=== PATIENT | female | born 1940 | race Hispanic/Latino ===

== ENCOUNTER 2017-12-15 02:18 | Inpatient (IN) | payer MEDICARE ==
[2017-12-15 02:53] LABS: Bilirubin Negative (Negative); Blood, Urine Moderate (Negative); Clarity CLEAR (Clear); Glucose, Urine (Dipstick) >=1000 mg/dL (Negative); Leukocyte Negative (Negative); Nitrite Negative (Negative); Protein, Urine (Dipstick) Negative (Neg-Trace); Specific Gravity, Urine 1.025 (1.002-1.036); Urobilinogen 0.2 mg/dL (0.2-1.0); pH, Urine 6.5 (5.0-9.0)
[2017-12-15 02:55] LABS: Bacteria/HPF None Seen HPF (None Seen); Hyaline Casts/LPF 0-3 HYALINE CAST LPF (0-3 Hyaline); Pathc Cast-AUWi Flag 0.14 (0-2.49); RBC/HPF 0-3 HPF (0-3); Squamous Epithelial 0-3 HPF (0-3); WBC/HPF 0-3 HPF (0-3)
[2017-12-15 03:07] LABS: Hemoglobin 13.9 g/dL (12.0-16.0); Mean Corpuscular HGB CONC 32.1 g/dL (32.0-36.0); Mean Corpuscular Hemoglobin 33.5 pg (27.0-31.0); RBC Distribution Width 13.1 % (11.5-14.5); Red Blood Cell (RBC) Count 4.15 mill/uL (4.20-5.40); White Blood Cell (WBC) Count 14.8 thou/uL (4.8-10.8)
[2017-12-15 03:12] LABS: Base Excess-Venous 1.6 mmol/L (0 (+/- 2.5)); Bicarbonate (HCO3v) 27.6 mmol/L (1.0-85.0); CO2 Tension (PvCO2) 47.9 mmHg (41.0-51.0); Calcium, Ionized 1.21 mmol/L (1.12-1.32); Hemoglobin - Calc 13.1 g/dL (12.0-18.0); O2 Tension (PvO2) 35.5 mmHg (35.0-45.0); Potassium 3.5 mmol/L (3.4-4.7); T. Carbon Dioxide 29.1 mmol/L (1.0-85.0); pH (Venous) 7.369 (7.35-7.45); vO2 Saturation-calc 65.5 % (94-98)
[2017-12-15 03:20] LABS: CKMB 6.2 ng/mL (0-6.6)
[2017-12-15 03:21] LABS: ALT (SGPT) 60 U/L (8-55); AST (SGOT) 30 U/L (5-34); Albumin 2.9 g/dL (3.4-4.8); Alkaline Phosphatase 123 U/L (40-150); Anion Gap 18 mmol/L (10-20); BUN (Urea Nitrogen) 113 mg/dL (9.8-20.1); Bilirubin, Total 0.7 mg/dL (0.2-1.2); CK (CPK) 1526 U/L (29-168); Calc. Creatinine Clearance 0 mL/min (70-130); Calcium 9.8 mg/dL (7.8-10.44); Carbon Dioxide 25 mmol/L (23-31); Chloride 130 mmol/L (98-107); Estimated GFR-MDRD 23; Potassium 3.7 mmol/L (3.5-5.1); Protein, Total 5.9 g/dL (6.0-8.3); Sodium 169 mmol/L (136-145)
[2017-12-15 03:22] LABS: #Monocytes 0.9 thou/uL (0.11-0.59); #Neutrophils 12.9 thou/uL (1.40-6.50); %Eosinophils 0.2 % (0.0-10.0); %Lymphocytes 6.9 % (21.0-51.0); %Monocytes 5.9 % (0.0-10.0); Large Platelets SLIGHT; MDiff Complete? YES; Mean Platelet Volume 14.7 fL (7.4-10.4); PLT Morphology Comment Appears Decreased; Platelet Count 106 thou/uL (130-400)
[2017-12-15 03:26] LABS: Glucose 899 mg/dL (83-110); Troponin I 0.604 ng/mL (< 0.028)
[2017-12-15 04:43] LABS: Lactic Acid 3.6 mmol/L (0.5-2.2)
[2017-12-15 04:59] LABS: Troponin I 0.718 ng/mL (< 0.028)
[2017-12-15] MEDS ORDERED: SODIUM CHLORIDE IV SCH (05:45)
[2017-12-15] MEDS ORDERED: Insulin Regular 100 units/100 ml in NS IVPB SCH (05:45)
[2017-12-15] MEDS ORDERED: STERILE WATER IV SCH (05:45)
[2017-12-15] MEDS ORDERED: Potassium Chloride 40 MEQ in Sodium Chloride 0.45% 1,000 ML IV SCH (06:00)
[2017-12-15 06:13] LABS: Osmolality, Serum 432 mOsm/kg (280-295)
[2017-12-15] MEDS ORDERED: Sodium Chloride 0.65% Nasal 44 ML BOT EA NARE PRN (07:46)
[2017-12-15] MEDS ORDERED: Artificial Tears 18 DROP/0.9 ML EA EYE PRN (07:46)
[2017-12-15] MEDS ORDERED: Ondansetron HCl/PF 4 MG/2 ML Vial IVP PRN (07:46)
[2017-12-15] MEDS ORDERED: hydrALAZINE 20 MG/ML VIAL SLOW IVP PRN (07:46)
[2017-12-15] MEDS ORDERED: Bisacodyl 10 MG SUPP PR PRN (07:46)
[2017-12-15] MEDS ORDERED: Loratadine 10 MG TAB PER TUBE PRN ×3 (07:46→13:51)
[2017-12-15] MEDS ORDERED: Ondansetron ODT 4 MG TAB SL PRN (07:46)
[2017-12-15] MEDS ORDERED: Eucerin (Mineral Oil/Petrolatum,White) 30 gm Jar TOP PRN (07:46)
[2017-12-15] MEDS ORDERED: Milk Of Magnesia 30 ML UDCUP PER TUBE PRN (07:46)
[2017-12-15] MEDS ORDERED: Loperamide HCl 2 MG CAP PER TUBE PRN (07:46)
[2017-12-15] MEDS ORDERED: Diabetic Tussin 200 MG/10 ML UDCUP PER TUBE PRN (07:46)
[2017-12-15] MEDS ORDERED: Mag-Al 1200 mg/1200 mg/30 ML UDCUP PER TUBE PRN (07:46)
[2017-12-15] MEDS ORDERED: Acetaminophen 325 MG TAB PER TUBE PRN (07:46)
[2017-12-15] MEDS ORDERED: Senokot 8.6 MG TAB PER TUBE PRN (07:46)
[2017-12-15] MEDS: Sodium Chloride 0.45% 1,000 ML IV SCH ×3 (08:27→23:12)
[2017-12-15] MEDS: Cefepime 1 GM in Sodium Chloride 0.9% 100 ML IVPB SCH ×2 (08:28→21:52)
[2017-12-15] MEDS: Pantoprazole 40 MG VIAL IVP SCH (08:28)
[2017-12-15] MEDS: Heparin 5,000 UNITS/ML VIAL SC SCH ×2 (08:28→21:52)
[2017-12-15 08:49] LABS: Lactic Acid 4.9 mmol/L (0.5-2.2)
[2017-12-15 09:00] LABS: Troponin I 0.628 ng/mL (< 0.028)
[2017-12-15 09:05] LABS: CKMB 10.8 ng/mL (0-6.6); Troponin I 0.608 ng/mL (< 0.028)
--- NOTE | 2017-12-15 09:26 | CON ---
DATE OF CONSULTATION: 12/15/2017 CONSULTING PHYSICIAN: Hospitalist group - IMCU protocol. REASON FOR CONSULTATION: Severe hypernatremia and hyperglycemia. HISTORY OF PRESENT ILLNESS: The patient was brought in from the intermediate last night with tachycardia and hypotension. She was noted to have a sodium of 175 and blood glucose of nearly 1000. She has been started on appropriate fluid therapy for that and has also been placed on an insulin drip. She lives in a intermediate. She has cerebral palsy. PAST MEDICAL HISTORY: See above. Also remarkable for multiple urinary tract infections and swallowing dysfunction. PAST SURGICAL HISTORY: She has had a PEG tube placement, cataract surgery and ankle surgery. SOCIAL HISTORY: Nonsmoker, nondrinker. FAMILY MEDICAL HISTORY: Unremarkable. MEDICATIONS PRIOR TO ADMISSION: Opcon A eye drops, phosphorus electrolyte supplementation, Claritin, Sensipar, vitamin D3, MiraLax, aspirin and acetaminophen. REVIEW OF SYSTEMS: Cannot be obtained as the patient is nonverbal. PHYSICAL EXAMINATION: VITAL SIGNS: Temperature 98.8, pulse 96, blood pressure 95/69, O2 sat 98% on 2 liters. GENERAL: The patient is arousable, moves her arms. HEENT: Remarkable for horribly poor dentition, dry tongue. General unkempt mouth. NECK: No JVD. LUNGS: Clear without wheeze or rhonchi. CARDIOVASCULAR: S1, S2, slightly tachycardic. ABDOMEN: Soft, nontender. PEG tube noted, appears to be in good shape. EXTREMITIES: No clubbing, cyanosis, or edema. LABORATORY DATA: White blood cell count 14.8, hematocrit 43.2, platelet count 106, pH 7.36, pCO2 47, pO2 35 - venous blood gas. Sodium 175, potassium 3.5, chloride 136. Osmolarity 432, BUN 113, creatinine 2.1. ASSESSMENT: 1. Severe hypernatremia, likely due to dehydration. 2. Hyperglycemia - also likely reflection of dehydration. RECOMMENDATIONS: 1. Fluid resuscitation with half normal saline 150 mL per hour to correct half of the free water deficit in the first 24 hours. 2. She has been put on empiric antibiotics for possible infection. 3. I will notify Dr. Adrian of the patient's hospitalization as he has seen her in the past. 70 minutes time was spent performing this consultation. Of that time, >50% was spent with the patient and/or on the patient's hospital unit [facility]
--- NOTE | 2017-12-15 09:42 | RAD ---
PORTABLE SUPINE CHEST: History: Mental status change. Comparison: 12-26-16 FINDINGS: Lungs appear clear of infiltrate. Heart size is upper normal and stable. Vascular markings within nor mal range. IMPRESSION: No acute process identified. POS: H
--- NOTE | 2017-12-15 11:07 | CON ---
DATE OF CONSULTATION: 12/15/2017 HISTORY OF PRESENT ILLNESS: Ms. Walker is a 77-year-old female who was admitted for acute re nal failure. She was noted to be hypotensive and tachycardic. She was also noted to be severely hyp ernatremic. REVIEW OF SYSTEMS: Not obtainable since the patient is nonverbal. We are being consulted for her acute kidney injury and hypernatremia. PAST MEDICAL HISTORY: Hyperlipidemia, ? of cerebral palsy. Patient has been chronically nonverbal, also history of hyperparathyroidism. PAST SURGICAL HISTORY: 1. Status post cataract surgery. 2. Status post right ankle surgery. 3. Status post PEG placement. 4. Status post upper GI endoscopy. SOCIAL HISTORY: The patient is a intermediate patient. No children. Single. No smoking. No IV dr ug abuse. No alcohol use. Sedentary lifestyle. ALLERGIES: None. TRAUMA: None. IMMUNIZATIONS: Up to date. HOSPITALIZATIONS: Please see past medical history. FAMILY HISTORY: No family history of ESRD. MEDICATIONS: The patient is currently on IV half normal saline with 40 mEq of potassium. Cefepime 1 gram q.12 hours, heparin 5000 units subcutaneous b.i.d., insulin drip, Levaquin 500 mg IV daily. PHYSICAL EXAMINATION: VITAL SIGNS: Blood pressure is noted to be at 82/50, heart rate 90, respiratory rate 24, pulse ox 99 %, and temperature 97.1. GENERAL: Noted to be unresponsive. SKIN: Decreased turgor. HEENT: She has pinkish conjunctivae and anicteric sclerae. NECK: No neck mass, no carotid bruits, no JVD. CHEST: No deformities. LUNGS: Clear breath sounds, no wheezing, no crackles. HEART: Normal sinus rhythm. No murmurs, no gallops, no rubs. ABDOMEN: Globular, soft, nontender, no masses. Positive for PEG tube. EXTREMITIES: No edema. LABORATORY DATA: 1. Laboratories of 12/15/2017; white count 14.8, hemoglobin 13.9. 2. On 12/15/2017, serum sodium 169, potassium 3.7, chloride 130, BUN 113, creatinine 2.13, glucose 3 99, AST 30, ALT 60, albumin 2.9. Urinalysis; specific gravity 1.025, protein is negative, no pigment ed granular cast. ASSESSMENT AND PLAN: 1. Acute kidney injury, consider hemodynamically mediated renal dysfunction. Agree with volume repl etion. There is no indication for any dialytic intervention. I had a long discussion with the famil y and they are not interested in pursuing dialysis. 2. Hypernatremia, currently on half normal saline. I decided not to place her on D5 water and place d on half normal saline due to the fact that the patient is also noted to be volume depleted and hypo tensive. Overall, agree with current management. Overall, prognosis remains poor. Continue current management.
[2017-12-15 12:01] LABS: Anion Gap 16 mmol/L (10-20); BUN (Urea Nitrogen) 90 mg/dL (9.8-20.1); Calc. Creatinine Clearance 20 mL/min (70-130); Calcium 9.5 mg/dL (7.8-10.44); Carbon Dioxide 24 mmol/L (23-31); Chloride 138 mmol/L (98-107); Estimated GFR-MDRD 33; Glucose 322 mg/dL (83-110); Potassium 3.4 mmol/L (3.5-5.1); Sodium 175 mmol/L (136-145)
[2017-12-15 12:13] LABS: CKMB 11.7 ng/mL (0-6.6); Troponin I 0.599 ng/mL (< 0.028)
--- NOTE | 2017-12-15 14:09 | HP ---
PRIMARY CARE PHYSICIAN: Dr. Deepthi Webb. REASON FOR ADMISSION: Severe hypernatremia, acute kidney failure, severe hyperglycemia, elevated troponin. HISTORY OF PRESENT ILLNESS: A 77-year-old female who has underlying mental retardation. [facility]. She is not able to provide any history. At [facility], patient was lethargic and unresponsive. In the emergency room, patient was hypotensive. She was tachypneic. The patient was tachycardic at [facility]. Patient's family member present at bedside, but they are not able to provide any more detailed history. In the emergency room, she was hypotensive, tachycardic. Routine blood tests showed leukocytosis with macrocytosis and thrombocytopenia. She was also having hyponatremia with sodium 175 and chloride 138. Her troponin was also elevated. Her blood sugar was also very high and she had elevated creatinine. The patient appeared significantly dehydrated. REVIEW OF SYSTEMS: All review of systems tried to review with the patient, but unable to review because of mental retardation and encephalopathy. PAST MEDICAL HISTORY: Mental retardation, history of urinary tract infection in past, oropharyngeal dysphagia with PEG tube. PAST SURGICAL HISTORY: Right ankle surgery for fracture and cataract surgery. PAST PSYCHIATRIC HISTORY: Reviewed and negative. ALLERGIES: No known drug allergies. CURRENT HOME MEDICATIONS: Tylenol 325 mg per tube q.8 hourly p.r.n., aspirin 325 mg per tube daily, vitamin D3 1000 units per tube daily, Sensipar 30 mg per tube b.i.d., Claritin 10 mg per tube daily p.r.n., and MiraLax 17 grams per tube daily. SOCIAL HISTORY: Patient lives at [facility]. No history of tobacco, alcohol or illicit drug abuse. The patient is bed bound. FAMILY HISTORY: No strong family history of premature coronary artery disease, stroke or cancer. EMERGENCY ROOM COURSE: The patient has received one quarter NS, Novolin R insulin drip, aspirin 324 mg. PHYSICAL EXAMINATION: VITAL SIGNS: On arrival, blood pressure lowest 78/49, pulse 89, respiratory rate 39, saturation 93% on room air, and weight 59 kilograms. GENERAL: Patient is lethargic. HEAD: Normocephalic, atraumatic. EYES: Pupils round and reactive to light. Extraocular muscle intact. ENT: Dry mucous membranes, cracking of the lips. No pharyngeal erythema, no exudate. NECK: Supple, no JVD, no thyromegaly, no carotid bruit. LUNGS: Grossly clear to auscultation without any rhonchi or rales. CARDIAC: S1 and S2 appears regular. No murmur elicited, no gallop, no rub. ABDOMEN: Left upper quadrant PEG tube in place. No peritoneal signs, no guarding, no rigidity, no rebound, no suprapubic discomfort. BACK: No CVA tenderness. EXTREMITIES: Upper extremity passive movement of all joints are normal. Lower extremity passive movements of all joints are normal. Right foot has inversion status. NEUROLOGICAL: Unable to assess at this point, patient is not following any commands since she is lethargic, so detailed neurological examination not possible. PSYCHIATRIC: Patient is sleepy and lethargic, unable to assess at this point. SKIN: No skin rash. IMAGING DATA AND SIGNIFICANT LABORATORY DATA: 1. EKG showing normal sinus rhythm, nonspecific ST-T changes without any significant change from previous. 2. Chest x-ray based on my review, no acute cardiopulmonary process. 3. CBC: WBC 14.8, hemoglobin 13.9, platelet 106, MCV 104 with left shift. 4. VBG: pH 7.36, CO2 47.9, O2 35.5, bicarbonate 27.6. 5. BMP: Sodium 175, potassium 3.5, chloride 136, BUN 113, creatinine 2.13, glucose 899, calcium 9.8, lactic acid 3.8. 6. LFT: AST 30, ALT 60, alkaline phosphatase 123, albumin 2.9, CK-MB 6.2, troponin 0.604. Urinalysis showing glucosuria, serum ketones 0.40. ASSESSMENT AND PLAN/IMPRESSION: 1. Severe hypernatremia with hyperosmolarity likely due to osmotic diuresis as well as free water deficit from poor water intake. 2. Acute metabolic encephalopathy on top of chronic mental retardation. 3. Acute kidney failure, prerenal etiology from osmotic diuresis as well as dehydration from poor p.o. intake. 4. Hyperosmolar hyperglycemic ketotic state, on insulin drip. 5. Lactic acidosis with leukocytosis, rule out sepsis. 6. Rhabdomyolysis. 7. Demand ischemia of myocardium (non-ST elevation myocardial elevation type 2) . 8. Severe protein calorie malnutrition. 9. Hypoalbuminemia associated with malnutrition. 10. Chronic mental retardation with chronic physical deconditioning and bed bound status. PLAN: 1. The patient is admitted in IMCU. Patient will be given hypotonic IV fluid and we will monitor serum electrolytes closely. We will monitor renal function closely. Nephrology already consulted and evaluated the patient as patient is in IMCU and that is why we will consult Pulmonary for evaluation. Palliative care team will be consulted for a goal of care. For suspected sepsis, we will continue cefepime 1 gram q.12 hourly and Levaquin 500 mg daily and Protonix 40 mg IV daily. The patient will be given free water through the PEG tube as tolerated. We will avoid nephrotoxin agents. We will continue aspirin 325 mg per tube daily. Her selected home medication will be continued while in hospital. Cardiology will be consulted as well for significantly elevated troponin. We will monitor hemodynamics. We will avoid antihypertensive medication because of hypotension. We will follow up on culture result and change antibiotic therapy accordingly. Will get echo, continue insulin drip, aspine via peg, 2. We will start tube feeding as per [facility]. Prognosis is poor. Plan of care discussed with the patient's family member at bedside. 3. Deep venous thrombosis prophylaxis, heparin 5000 units subcu b.i.d. 4. Gastrointestinal prophylaxis, Protonix 40 mg IV daily. 5. Macrocytosis. We will add folic acid and vitamin B12 through the PEG tube. We will monitor platelet count. If platelet count drops below from current, then we will discontinue heparin. Disposition plan based on clinical course. We are expecting patient's stay in hospital more than 2 midnights. Plan of care discussed with the family member at bedside. SHON
[2017-12-15] MEDS: Dextrose 5 %-0.45 % NaCl 1,000 ML IV SCH (16:52)
[2017-12-15] MEDS: Cinacalcet HCl 30 MG TAB PER TUBE SCH (16:57)
--- NOTE | 2017-12-15 19:11 | CON ---
DATE OF CONSULTATION: 12/15/2017 DATE OF ADMISSION: 12/15/2017 INDICATION FOR CONSULTATION: From what I can determine is due to a rapid heart rate and hypotension with the patient appears to be dehydrated. HISTORY OF PRESENT ILLNESS: This very unfortunate 77-year-old female who has mental and physical ret ardation and also apparently has some history of cerebral palsy, has been taken care of the family me rosmery until just recently and [facility]. She had been in the hospital earlier a nd was seen by one of my partners, Dr. Lao for similar problems. At that time, she was then godfrey en to the penitentiary and appears at this time she was brought in due to low blood pressure and rapi d heart rate and was again found to have dehydration as well as hyperglycemia. The family does not k now of any history of having diabetes, but they said the blood sugar was over 400. She also has hype rnatremia as well as the tachycardia and hypotension. At this time, there is no indication that she has any significant cardiac problems. The tachycardia has been resolved and also the hypotension is under much better control. Her EKG did not show any ac daquna changes. Her sister who have taken care of her before said that perhaps in the past even though she was nonverbal it is possible she could have had some chest discomfort that she would occasionally put her hand to her chest, but this is also just a speculation. Her EKG showed some nonspecific EKG changes with T-wave inversions in the inferior lateral leads. No indication of ischemia otherwise a nd no indication of previous myocardial infarction. At this time, she appears to be comfortable. EK G has remained unchanged. She had previous EKGs in the past. PAST MEDICAL HISTORY: Significant for cerebral palsy. Multiple urinary tract infections, dehydratio n, PEG tube placements, cataract surgery, and ankle surgery. SOCIAL HISTORY: There is no history of alcohol or tobacco abuse. She [facility] the [facility]. FAMILY HISTORY: Noncontributory. MEDICATIONS PRIOR TO ADMISSION: Included phosphorus supplementations, Claritin, Sensipar, Opcon opht halmic drops, vitamin D3, MiraLax, aspirin and Tylenol. REVIEW OF SYSTEMS: According to the family. This was obviously not obtainable, but she has not comp lained of any other significant symptoms that we are aware of. PHYSICAL EXAMINATION: GENERAL: Reveals an elderly mentally challenged patient who is in no acute distress at this time. VITAL SIGNS: Her blood pressure is 90/44. She is afebrile. Heart rate is 83, respiratory rate 21, O2 saturations 92% on 2 liters. HEENT: Shows head to be normocephalic, atraumatic. Carotid pulses are present. I cannot hear any b ruits. CHEST: She has shallow breathing, but did not hear rales, rhonchi or wheezing. CARDIOVASCULAR: Exam reveals a regular rhythm at this time without any significant murmurs, heaves, thrills, bruits or rubs. ABDOMEN: She has a PEG tube in place. The abdominal exam shows that is somewhat firm and dull to pe rcussion. She does seem to have some discomfort there on palpation, cannot palpate any masses, but s he does have some tenderness there. Positive bowel sounds over there, but was somewhat diminished. EXTREMITIES: Showed no clubbing or cyanosis. No lower extremity edema. Pulses are difficult to pal valencia. I could barely palpate femoral pulses. I cannot palpate popliteal or pedal pulses. NEUROLOGIC: Obviously, the patient has severe mental issues with cerebral palsy. She does have some deformity of the left lower extremity. LABORATORY DATA: Shows hemoglobin 13.9, WBC was 14.8. Her platelet count was 106,000. Chemistry sh owed sodium of 175, earlier was 169, she had been given normal saline in the emergency room, chloride was 138, potassium was 3.4, bicarbonate was 24, BUN was 9 with a creatinine of 1.55, blood sugar is now 155, earlier was significantly elevated, the highest according to the records was greater than 55 0. Troponin I is 0.628, decreased down to 0.608 and CK was 10.8. The MB has now increased up to 11. 7 with troponin of 0.599. IMPRESSION: 1. Elderly patient with severe mental retardation as well as cerebral palsy with multiple medical is sues including hypernatremia, which is with the sodium of 175 obviously very dangerous to the patient . This is being corrected and she has been seen by the reeling machine setup operator. 2. Hyperglycemia, blood sugars over 600. This is also being dealt with by the primary care service and now improved down to 155. 3. Abnormal cardiac enzymes, which would not be unusual in this particular situation, but she may still ve underlying coronary artery disease. She is not a candidate for any type of invasive procedures no r is she a candidate to undergo any evaluation to determine if she does have underlying coronary rc ry disease. I have spoken to the family about this and we will plan for comfort measures as far as h er heart is concerned. 4. Evidence of severe retardation, cerebral palsy. I suggested the family that we keep this patient comfortable. 5. Dehydration. She does have a PEG tube in place as well as she appears to be very malnourished. This will be dealt again with the primary care service. 6. From a cardiac standpoint, the patient actually appears to be relatively stable and no further ca rdiac intervention is indicated in this otherwise very unfortunate patient and we would suggest hospi ce for this patient due to the other multiple medical problems unless these issues with hypernatremia and hyperglycemia can be reversed and the patient can have at least some quality of life. Apparentl y from home earlier, the patient has never been able to speak, but she was able to watch TV and was a ble to ambulate. At this time, I have very little further to offer from a cardiac standpoint. If th ere is any specific issues or changes, I would be more than happy to revisit with the patient, but at this time I will sign off the case.
[2017-12-15 20:03] LABS: Sodium 167 mmol/L (136-145)
[2017-12-15] MEDS ORDERED: Vancomycin HCl 1 GM in Premix Bag 1 BAG IVPB SCH (23:45)
[2017-12-16] MEDS: Dextrose 5 %-0.45 % NaCl 1,000 ML IV SCH ×2 (00:03→05:44)
[2017-12-16] MEDS ORDERED: Dextrose 5% in Water 1,000 ML IV PRN (00:25)
[2017-12-16] MEDS ORDERED: Dextrose 50% Abboject 50 ML SYRINGE IVP PRN (00:25)
[2017-12-16] MEDS: HumaLOG 300 UNITS/3 ML VIAL SC PRN ×6 (00:40→18:52)
[2017-12-16 04:50] LABS: Lactic Acid 2.7 mmol/L (0.5-2.2)
[2017-12-16 05:10] LABS: ALT (SGPT) 51 U/L (8-55); AST (SGOT) 41 U/L (5-34); Albumin 2.5 g/dL (3.4-4.8); Alkaline Phosphatase 90 U/L (40-150); Anion Gap 13 mmol/L (10-20); BUN (Urea Nitrogen) 76 mg/dL (9.8-20.1); Bilirubin, Total 0.7 mg/dL (0.2-1.2); Calc. Creatinine Clearance 23 mL/min (70-130); Calcium 9.5 mg/dL (7.8-10.44); Carbon Dioxide 22 mmol/L (23-31); Chloride 130 mmol/L (98-107); Estimated GFR-MDRD 38; Globulin 2.5 g/dL (2.4-3.5); Glucose 374 mg/dL (83-110); Potassium 3.8 mmol/L (3.5-5.1); Sodium 161 mmol/L (136-145)
[2017-12-16] MEDS ORDERED: Sodium Chloride 0.45% 1,000 ML IV SCH (05:30)
[2017-12-16] MEDS: Cyanocobalamin (Vitamin B-12) 1,000 MCG TAB PER TUBE SCH (08:17)
[2017-12-16] MEDS: Aspirin 325 MG TAB PER TUBE SCH (08:17)
[2017-12-16] MEDS: Multivitamin W/ Minerals 1 TAB PER TUBE SCH (08:17)
[2017-12-16] MEDS: Folic Acid 1 MG TAB PER TUBE SCH (08:17)
[2017-12-16] MEDS: Cinacalcet HCl 30 MG TAB PER TUBE SCH ×2 (08:17→17:52)
[2017-12-16] MEDS: Polyethylene Glycol 3350 17 GM Packet PER TUBE SCH (08:18)
[2017-12-16] MEDS: Pantoprazole 40 MG VIAL IVP SCH (08:19)
[2017-12-16] MEDS: Cefepime 1 GM in Sodium Chloride 0.9% 100 ML IVPB SCH ×2 (08:23→20:19)
[2017-12-16] MEDS: Heparin 5,000 UNITS/ML VIAL SC SCH ×2 (08:30→20:19)
[2017-12-16] MEDS ORDERED: WATER IV SCH ×3 (09:45→10:00)
[2017-12-16] MEDS ORDERED: SODIUM CHLORIDE IV SCH ×3 (09:45→10:00)
[2017-12-16] MEDS ORDERED: DEXTROSE 5% IV SCH ×3 (09:45→10:00)
[2017-12-16] MEDS ORDERED: POTASSIUM CHLORIDE IV SCH ×3 (09:45→10:00)
--- NOTE | 2017-12-16 10:34 | PRG ---
DATE OF SERVICE: 12/16/2018 PHYSICAL EXAMINATION: VITAL SIGNS: Ms. Walker is afebrile, heart rate is in the 70s, respiratory rate is 20, oximetry is 10 0% on 2 liters, blood pressure 100/50. She is probably close to her baseline. Intake and outputs qu antitated at positive 2223, but there is no output recorded since she is in a diaper. LUNGS: Lungs are clear. HEART: Regular rhythm. ABDOMEN: Abdomen is soft. She is curled up on her side. She weighs by report, 97 pounds. LABORATORY: Sodium has gone down to 161, potassium 3.8, chloride 130, bicarbonate 22, BUN 76, creati nine 1.34 down from 2.13. IMPRESSION: Extreme intravascular volume depletion with hyperosmolar state, improving. Her correcte d sodium was getting up close to 200 when corrected for her blood glucose. She should be stable with a few days to go back to her [facility]. I have discussed do not resuscitate status with the fami ly, I also discussed hospice status. Even with intensive medical management. This event is likely to recur at this age with her functiona l status. They were receptive to the discussion and are planning to get together as a family to disc uss code status today.
[2017-12-16] MEDS: WATER IV SCH ×3 (10:36→23:50)
[2017-12-16] MEDS: POTASSIUM CHLORIDE IV SCH ×3 (10:36→23:50)
[2017-12-16] MEDS: DEXTROSE 5% IV SCH ×3 (10:36→23:50)
[2017-12-16] MEDS: SODIUM CHLORIDE IV SCH ×3 (10:36→23:50)
--- NOTE | 2017-12-16 11:13 | PDOC.PN ---
- Subjective Encounter Start Date: 12/16/17 Encounter Start Time: 10:00 -: old records requested/rev Patient seen and examined for abnormal electrolytes. No overnight events - Objective Resuscitation Status: Resuscitation Status FULL:Full Resuscitation MAR Reviewed: Yes Vital Signs & Weight: Vital Signs (12 hours) Temp Pulse Resp BP Pulse Ox 12/16/17 08:00 97.7 F 76 29 H 100 12/16/17 07:58 97.7 F 76 29 H 100/50 L 100 12/16/17 03:53 98.7 F 74 17 93/47 L 100 12/16/17 00:00 98.4 F 78 18 95/67 100 Weight Admit Weight 91 lb Weight 97 lb 14.4 oz I&O: 12/15/17 12/16/17 12/17/17 06:59 06:59 06:59 Intake Total 2223 100 Balance 2223 100 Result Diagrams: 12/15/17 02:39 12/16/17 04:07 Additional Labs: Accuchecks 12/16/17 12/16/17 12/16/17 10:09 08:17 05:58 POC Glucose 288 H 257 H 348 H 12/16/17 12/16/17 12/16/17 04:06 02:10 00:20 POC Glucose 300 H 385 H 340 H 12/15/17 12/15/17 12/15/17 22:15 20:41 18:07 POC Glucose 254 H 179 H 121 H 12/15/17 12/15/17 12/15/17 17:01 16:01 14:21 POC Glucose 74 56 L* 110 12/15/17 12/15/17 12/15/17 13:29 11:58 11:09 POC Glucose 155 H 259 H 335 H EKG Reviewed by me: Yes (nsr) Phys Exam - Physical Examination Constitutional: NAD HEENT: PERRLA, sclera anicteric dry MM Neck: no JVD, supple Respiratory: no wheezing, no rales, no rhonchi Cardiovascular: RRR, no significant murmur, no rub Gastrointestinal: soft, no distention, positive bowel sounds PEG+ Musculoskeletal: no edema, pulses present unable to assess Lymphatic: no nodes Deviation from normal: unable to assess Skin: no rash, normal turgor Dx/Plan (1) AJAY (acute kidney injury) Code(s): N17.9 - ACUTE KIDNEY FAILURE, UNSPECIFIED Status: Acute (2) Acute metabolic encephalopathy Code(s): G93.41 - METABOLIC ENCEPHALOPATHY Status: Acute (3) Demand ischemia of myocardium Code(s): I24.8 - OTHER FORMS OF ACUTE ISCHEMIC HEART DISEASE Status: Acute (4) Hyperglycemia without ketosis Code(s): R73.9 - HYPERGLYCEMIA, UNSPECIFIED Status: Acute (5) Hyperosmolality and hypernatremia Code(s): E87.0 - HYPEROSMOLALITY AND HYPERNATREMIA Status: Acute (6) Lactic acid acidosis Code(s): E87.2 - ACIDOSIS Status: Acute (7) Sepsis Code(s): A41.9 - SEPSIS, UNSPECIFIED ORGANISM Status: Acute (8) Thrombocytopenia Code(s): D69.6 - THROMBOCYTOPENIA, UNSPECIFIED Status: Acute (9) Cerebral palsy Code(s): G80.9 - CEREBRAL PALSY, UNSPECIFIED Status: Chronic (10) Macrocytosis Code(s): D75.89 - OTHER SPECIFIED DISEASES OF BLOOD AND BLOOD-FORMING ORGANS Status: Chronic (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 (12) PEG (percutaneous endoscopic gastrostomy) status Code(s): Z93.1 - GASTROSTOMY STATUS Status: Chronic (13) Primary hyperparathyroidism Code(s): E21.0 - PRIMARY HYPERPARATHYROIDISM Status: Chronic (14) Protein-calorie malnutrition, severe Code(s): E43 - UNSPECIFIED SEVERE PROTEIN-CALORIE MALNUTRITION Status: Chronic (15) Vitamin D deficiency Code(s): E55.9 - VITAMIN D DEFICIENCY, UNSPECIFIED Status: Chronic (16) Dysphagia, oropharyngeal Code(s): R13.12 - DYSPHAGIA, OROPHARYNGEAL PHASE Status: Chronic - Plan cont current plan of care, plan discussed w/ family, continue antibiotics * continue dex with 1/2 NS at 150 ml per hour * aggressive scale insulin q 2 hourly * monitor labs * discussed with family * palliative care for goal of care * medication reviewed as below * symptomatic treatment * continue empiric antibiotics * all consultants recommendation noted. Review of Systems - Review of Systems Other: unable to review due to metabolic encephalopathy - Medications/Allergies Allergies/Adverse Reactions: Allergies Allergy/AdvReac Type Severity Reaction Status Date / Time No Known Allergies Allergy Verified 07/29/16 16:07 Medications: Current Medications Acetaminophen (Tylenol) 650 mg PER TUBE Q4H PRN PRN Reason: Headache/Fever or Pain Al Hydroxide/Mg Hydroxide (Maalox) 30 ml PER TUBE Q6H PRN PRN Reason: Heartburn or Indigestion Albuterol/Ipratropium (Duoneb) 3 ml NEB Q6H PRN PRN Reason: SOB &/or Wheezing Artificial Tears (Tears Naturale) 0 drop EA EYE PRN PRN PRN Reason: Dry Eyes Aspirin (Aspirin) 325 mg PER TUBE DAILY [facility] Last Admin: 12/16/17 08:17 Dose: 325 mg Bisacodyl (Dulcolax) 10 mg [place] Q24H PRN PRN Reason: Constipation Cholecalciferol (Vitamin D3) 1,000 units PER TUBE DAILY [facility] Last Admin: 12/16/17 08:17 Dose: 1,000 units Cinacalcet (Sensipar) 30 mg PER TUBE BID[facility] Last Admin: 12/16/17 08:17 Dose: 30 mg Cyanocobalamin (Vitamin B-12) 1,000 mcg PER TUBE DAILY [facility] Last Admin: 12/16/17 08:17 Dose: 1,000 mcg Dextrose/Water (Dextrose 50%) 25 gm IVP PRN PRN PRN Reason: HYPOGLYCEMIA PROTOCOL Folic Acid (Folvite) 1 mg PER TUBE DAILY [facility] Last Admin: 12/16/17 08:17 Dose: 1 mg Glucagon (Glucagon) 1 mg IM PRN PRN PRN Reason: HYPOGLYCEMIA PROTOCOL Guaifenesin (Robitussin Sf) 200 mg PER TUBE Q4H PRN PRN Reason: Cough Heparin Sodium (Porcine) (Heparin) 5,000 units SC BID [facility] Last Admin: 12/16/17 08:30 Dose: 5,000 units Hydralazine HCl (Apresoline) 10 mg SLOW IVP Q4H PRN PRN Reason: Systolic BP > 180 Cefepime HCl 1 gm/ Sodium (Chloride) 100 mls @ 200 mls/hr IVPB Q12HR [facility] Last Admin: 12/16/17 08:23 Dose: 100 mls Insulin Human Regular 100 (units/ Sodium Chloride) 101 mls @ 0 mls/hr IVPB INF VIRGIL; Titrate PRN Reason: Protocol Levofloxacin 500 mg/ Device 100 mls @ 100 mls/hr IVPB 0800 [facility] Last Admin: 12/16/17 08:18 Dose: 100 mls Vancomycin HCl 500 mg/ Sodium (Chloride) 100 mls @ 100 mls/hr IVPB 2300 [facility] Dextrose/Water (D5w) 1,000 mls @ 0 mls/hr IV INF PRN; As Directed PRN Reason: HYPOGLYCEMIA PROTOCOL Sodium Chloride 42.7 meq/Potassium Chloride 40 meq/Dextrose/Water 1,000.005 mls @ 150 mls/hr IV .Q6H40M [facility] Last Admin: 12/16/17 10:36 Dose: 1,000.005 mls Insulin Human Lispro (Humalog) 0 units SC .AGGRESSIVE SLIDING PRN; Protocol PRN Reason: AGGRESSIVE SLIDING SCALE Last Admin: 12/16/17 10:45 Dose: 9 unit Iron/Minerals/Multivitamins (Theragran M) 1 tab PER TUBE DAILY [facility] Last Admin: 12/16/17 08:17 Dose: 1 tab Loperamide HCl (Imodium) 2 mg PER TUBE PRN PRN PRN Reason: Diarrhea/Loose Stools Loratadine (Claritin) 10 mg PER TUBE DAILYPRN PRN PRN Reason: Sinus Symptoms Loratadine (Claritin) 10 mg PER TUBE DAILY PRN PRN Reason: Allergies Magnesium Hydroxide (Milk Of Magnesium) 30 ml PER TUBE DAILYPRN PRN PRN Reason: Constipation Mineral Oil/White Petrolatum (Eucerin Cream) 0 gm TOP BIDPRN PRN PRN Reason: Dry Skin Ondansetron HCl (Zofran Odt) 4 mg SL Q6H PRN PRN Reason: Nausea/Vomiting Ondansetron HCl (Zofran) 4 mg IVP Q6H PRN PRN Reason: Nausea/Vomiting Pantoprazole Sodium (Protonix) 40 mg IVP DAILY [facility] Last Admin: 12/16/17 08:19 Dose: 40 mg Polyethylene Glycol (Miralax) 17 gm PER TUBE DAILY [facility] Last Admin: 12/16/17 08:18 Dose: 17 gm Senna (Senokot) 2 tab PER TUBE HSPRN PRN PRN Reason: Constipation Sodium Chloride ([place] Nasal [place] 0.65%) 0 ml EA NARE QIDPRN PRN PRN Reason: Nasal Congestion Sodium Chloride (Flush - Normal Saline) 10 ml IVF Q12HR [facility] Last Admin: 12/16/17 08:23 Dose: 10 ml Sodium Chloride (Flush - Normal Saline) 10 ml IVF PRN PRN PRN Reason: Saline Flush
--- NOTE | 2017-12-16 12:46 | PRG ---
DATE OF SERVICE: 12/16/2017 SUBJECTIVE: Ms. Walker is a 77-year-old female who was seen by the Renal Service for acute k idney injury and hypernatremia. She was started on D5 half normal saline at that time with 40 mEq po tassium. Renal function is actually improved from a creatinine of 1.55 to most recent value of 1.34. Her hypernatremia slowly improved from 175 to most recent value 161. Due to improved renal functio n, I decided to change the IV fluid to D5 0.25% sodium chloride with 40 mEq of KCl at the same rate. No new acute events. She does have a borderline troponin I on the lab work. No other new complaint s. PHYSICAL EXAMINATION: VITAL SIGNS: Blood pressure is 95/44, heart rate 76, respiratory rate 26, temperature 97.4, pulse ox 100%. GENERAL: Unresponsive, comfortable, not in distress. SKIN: Adequate turgor. HEENT: Pinkish conjunctivae. Anicteric sclerae. NECK: No neck mass, no carotid bruits, no JVD. CHEST: No deformities. LUNGS: Clear breath sounds. No wheezing, no crackles. HEART: Normal sinus rhythm. No murmur, no gallops or rubs. ABDOMEN: Globular, soft, nontender, no masses. EXTREMITIES: No edema, no deformities. MEDICATIONS: 12/16/2014 - Reviewed. LABORATORY DATA: 12/16/2017 - Sodium was noted 161, potassium 3.8, chloride 113, carbon dioxide 22, BUN 76, creatinine 1.34, AST 41, ALT 51, albumin 2.5. Glucose 238. ASSESSMENT AND PLAN: 1. Hypernatremia is slowly improving. Change IV fluid to D5 1/4 normal saline and run at 150 mL per hour. 2. Acute kidney injury, hemodynamically mediated renal dysfunction. Slowly improving with volume re pletion. 3. Hyperglycemia - if blood sugar is persistently elevated, consider changing to plain 1/4 normal sa line by next day. Overall, prognosis remains guarded.
[2017-12-16] MEDS: Vancomycin HCl 500 MG in Sodium Chloride 0.9% 100 ML IVPB SCH (23:50)
[2017-12-17] MEDS: HumaLOG 300 UNITS/3 ML VIAL SC PRN ×2 (02:04→06:00)
[2017-12-17 04:34] LABS: Lactic Acid 1.9 mmol/L (0.5-2.2)
[2017-12-17 04:40] LABS: #Eosinphils 0.3 thou/uL (0.0-0.7); #Lymphocytes 0.8 thou/uL (1.20-3.40); #Monocytes 0.5 thou/uL (0.11-0.59); #Neutrophils 7.7 thou/uL (1.40-6.50); %Eosinophils 2.8 % (0.0-10.0); %Lymphocytes 8.3 % (21.0-51.0); %Monocytes 5.5 % (0.0-10.0); %Neutrophils 83.3 % (42.0-75.0); Hemoglobin 10.5 g/dL (12.0-16.0); Mean Corpuscular Hemoglobin 33.1 pg (27.0-31.0); Mean Platelet Volume 13.5 fL (7.4-10.4); Platelet Count 69 thou/uL (130-400); RBC Distribution Width 12.5 % (11.5-14.5); Red Blood Cell (RBC) Count 3.17 mill/uL (4.20-5.40); White Blood Cell (WBC) Count 9.2 thou/uL (4.8-10.8)
[2017-12-17 04:41] LABS: ALT (SGPT) 46 U/L (8-55); AST (SGOT) 34 U/L (5-34); Albumin 2.5 g/dL (3.4-4.8); Alkaline Phosphatase 102 U/L (40-150); Anion Gap 9 mmol/L (10-20); BUN (Urea Nitrogen) 54 mg/dL (9.8-20.1); Bilirubin, Total 0.5 mg/dL (0.2-1.2); Calc. Creatinine Clearance 31 mL/min (70-130); Calcium 8.3 mg/dL (7.8-10.44); Carbon Dioxide 23 mmol/L (23-31); Chloride 124 mmol/L (98-107); Estimated GFR-MDRD 49; Globulin 2.4 g/dL (2.4-3.5); Glucose 367 mg/dL (83-110); Magnesium 1.7 mg/dL (1.6-2.6); Phosphorus 2.5 mg/dL (2.3-4.7); Potassium 5.1 mmol/L (3.5-5.1); Protein, Total 4.9 g/dL (6.0-8.3); Sodium 151 mmol/L (136-145)
[2017-12-17] MEDS: POTASSIUM CHLORIDE IV SCH (07:37)
[2017-12-17] MEDS: SODIUM CHLORIDE IV SCH (07:37)
[2017-12-17] MEDS: WATER IV SCH (07:37)
[2017-12-17] MEDS: DEXTROSE 5% IV SCH (07:37)
[2017-12-17] MEDS: Cefepime 1 GM in Sodium Chloride 0.9% 100 ML IVPB SCH (09:04)
[2017-12-17] MEDS: Aspirin 325 MG TAB PER TUBE SCH (09:05)
[2017-12-17] MEDS: Cyanocobalamin (Vitamin B-12) 1,000 MCG TAB PER TUBE SCH (09:05)
[2017-12-17] MEDS: Multivitamin W/ Minerals 1 TAB PER TUBE SCH (09:05)
[2017-12-17] MEDS: Cinacalcet HCl 30 MG TAB PER TUBE SCH ×2 (09:05→17:23)
[2017-12-17] MEDS: Pantoprazole 40 MG VIAL IVP SCH (09:05)
[2017-12-17] MEDS: Folic Acid 1 MG TAB PER TUBE SCH (09:05)
[2017-12-17] MEDS: Heparin 5,000 UNITS/ML VIAL SC SCH (09:06)
[2017-12-17] MEDS: Polyethylene Glycol 3350 17 GM Packet PER TUBE SCH (09:06)
--- NOTE | 2017-12-17 10:00 | PDOC.PN ---
- Subjective Encounter Start Date: 12/17/17 Encounter Start Time: 07:10 -: non-verbal Patient seen and examined for hypernatremia. No overnight events - Objective Resuscitation Status: Resuscitation Status FULL:Full Resuscitation MAR Reviewed: Yes Vital Signs & Weight: Vital Signs (12 hours) Temp Pulse Resp BP Pulse Ox 12/17/17 07:00 98.2 F 91 18 100/42 L 100 12/17/17 04:00 97.6 F 87 21 H 99/58 L 99 12/17/17 00:00 97.6 F 75 17 93/45 L 100 Weight Admit Weight 91 lb Weight 102 lb I&O: 12/16/17 12/17/17 12/18/17 06:59 06:59 06:59 Intake Total 2223 3634 Balance 2223 3634 Result Diagrams: 12/17/17 03:43 12/17/17 03:43 Additional Labs: Accuchecks 12/17/17 12/17/17 12/17/17 07:56 05:58 04:12 POC Glucose 183 H 275 H 343 H 12/17/17 12/16/17 12/16/17 02:03 23:57 22:05 POC Glucose 332 H 317 H 226 H 12/16/17 12/16/17 12/16/17 20:26 18:19 16:38 POC Glucose 300 H 362 H 312 H 12/16/17 12/16/17 12/16/17 14:12 12:05 10:09 POC Glucose 233 H 238 H 288 H EKG Reviewed by me: Yes (nsr) Phys Exam - Physical Examination Constitutional: NAD HEENT: PERRLA, sclera anicteric Neck: no JVD, supple Respiratory: no wheezing, no rales, no rhonchi Cardiovascular: RRR, no significant murmur, no rub Gastrointestinal: soft, no distention PEG in place Musculoskeletal: no edema, pulses present unable to assess Lymphatic: no nodes Deviation from normal: unable to assess Skin: no rash, normal turgor Dx/Plan (1) Sepsis due to coagulase-negative staphylococcal infection Code(s): A41.1 - SEPSIS DUE TO OTHER SPECIFIED STAPHYLOCOCCUS Status: Acute (2) Bacteremia due to coagulase-negative Staphylococcus Code(s): R78.81 - BACTEREMIA Status: Acute (3) AJAY (acute kidney injury) Code(s): N17.9 - ACUTE KIDNEY FAILURE, UNSPECIFIED Status: Resolved (4) Acute metabolic encephalopathy Code(s): G93.41 - METABOLIC ENCEPHALOPATHY Status: Acute Comment: pt is noverbal and now at baseline (5) Demand ischemia of myocardium Code(s): I24.8 - OTHER FORMS OF ACUTE ISCHEMIC HEART DISEASE Status: Acute (6) Hyperglycemia without ketosis Code(s): R73.9 - HYPERGLYCEMIA, UNSPECIFIED Status: Acute (7) Hyperosmolality and hypernatremia Code(s): E87.0 - HYPEROSMOLALITY AND HYPERNATREMIA Status: Acute (8) Lactic acid acidosis Code(s): E87.2 - ACIDOSIS Status: Acute (9) Thrombocytopenia Code(s): D69.6 - THROMBOCYTOPENIA, UNSPECIFIED Status: Acute (10) Cerebral palsy Code(s): G80.9 - CEREBRAL PALSY, UNSPECIFIED Status: Chronic (11) Macrocytosis Code(s): D75.89 - OTHER SPECIFIED DISEASES OF BLOOD AND BLOOD-FORMING ORGANS Status: Chronic (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 (13) PEG (percutaneous endoscopic gastrostomy) status Code(s): Z93.1 - GASTROSTOMY STATUS Status: Chronic (14) Primary hyperparathyroidism Code(s): E21.0 - PRIMARY HYPERPARATHYROIDISM Status: Chronic (15) Protein-calorie malnutrition, severe Code(s): E43 - UNSPECIFIED SEVERE PROTEIN-CALORIE MALNUTRITION Status: Chronic (16) Vitamin D deficiency Code(s): E55.9 - VITAMIN D DEFICIENCY, UNSPECIFIED Status: Chronic (17) Dysphagia, oropharyngeal Code(s): R13.12 - DYSPHAGIA, OROPHARYNGEAL PHASE Status: Chronic - Plan cont current plan of care, plan discussed w/ family, continue antibiotics, psychiatric social worker * today family will make final decision regarding code status * now sodium is improved, creatinine is improved * pt is not tolerating IVF, so will DC IVF * will increase tube feeding at 55 ml per hour and free water 125 ml q 4 hrly * DC Tele * transfer to medical floor * now accucheck q 4 hourly * change protonix via peg * medication reviewed as below * symptomatic treatment. Review of Systems - Review of Systems Other: unable to review due to nonverbal status - Medications/Allergies Allergies/Adverse Reactions: Allergies Allergy/AdvReac Type Severity Reaction Status Date / Time No Known Allergies Allergy Verified 07/29/16 16:07 Medications: Current Medications Acetaminophen (Tylenol) 650 mg PER TUBE Q4H PRN PRN Reason: Headache/Fever or Pain Al Hydroxide/Mg Hydroxide (Maalox) 30 ml PER TUBE Q6H PRN PRN Reason: Heartburn or Indigestion Albuterol/Ipratropium (Duoneb) 3 ml NEB Q6H PRN PRN Reason: SOB &/or Wheezing Artificial Tears (Tears Naturale) 0 drop EA EYE PRN PRN PRN Reason: Dry Eyes Aspirin (Aspirin) 325 mg PER TUBE DAILY [facility] Last Admin: 12/17/17 09:05 Dose: 325 mg Bisacodyl (Dulcolax) 10 mg DC Q24H PRN PRN Reason: Constipation Cholecalciferol (Vitamin D3) 1,000 units PER TUBE DAILY [facility] Last Admin: 12/17/17 09:05 Dose: 1,000 units Cinacalcet (Sensipar) 30 mg PER TUBE BID[facility] Last Admin: 12/17/17 09:05 Dose: 30 mg Cyanocobalamin (Vitamin B-12) 1,000 mcg PER TUBE DAILY [facility] Last Admin: 12/17/17 09:05 Dose: 1,000 mcg Dextrose/Water (Dextrose 50%) 25 gm IVP PRN PRN PRN Reason: HYPOGLYCEMIA PROTOCOL Folic Acid (Folvite) 1 mg PER TUBE DAILY [facility] Last Admin: 12/17/17 09:05 Dose: 1 mg Glucagon (Glucagon) 1 mg IM PRN PRN PRN Reason: HYPOGLYCEMIA PROTOCOL Guaifenesin (Robitussin Sf) 200 mg PER TUBE Q4H PRN PRN Reason: Cough Hydralazine HCl (Apresoline) 10 mg SLOW IVP Q4H PRN PRN Reason: Systolic BP > 180 Insulin Human Regular 100 (units/ Sodium Chloride) 101 mls @ 0 mls/hr IVPB INF VIRGIL; Titrate PRN Reason: Protocol Vancomycin HCl 500 mg/ Sodium (Chloride) 100 mls @ 100 mls/hr IVPB 2300 [facility] Last Admin: 12/16/17 23:50 Dose: 100 mls Dextrose/Water (D5w) 1,000 mls @ 0 mls/hr IV INF PRN; As Directed PRN Reason: HYPOGLYCEMIA PROTOCOL Insulin Human Lispro (Humalog) 0 units SC .AGGRESSIVE SLIDING PRN; Protocol PRN Reason: AGGRESSIVE SLIDING SCALE Last Admin: 12/17/17 06:00 Dose: 9 unit Iron/Minerals/Multivitamins (Theragran M) 1 tab PER TUBE DAILY [facility] Last Admin: 12/17/17 09:05 Dose: 1 tab Loperamide HCl (Imodium) 2 mg PER TUBE PRN PRN PRN Reason: Diarrhea/Loose Stools Loratadine (Claritin) 10 mg PER TUBE DAILY PRN PRN Reason: Allergies Magnesium Hydroxide (Milk Of Magnesium) 30 ml PER TUBE DAILYPRN PRN PRN Reason: Constipation Mineral Oil/White Petrolatum (Eucerin Cream) 0 gm TOP BIDPRN PRN PRN Reason: Dry Skin Ondansetron HCl (Zofran Odt) 4 mg SL Q6H PRN PRN Reason: Nausea/Vomiting Ondansetron HCl (Zofran) 4 mg IVP Q6H PRN PRN Reason: Nausea/Vomiting Pantoprazole Sodium (Protonix) 40 mg PER TUBE DAILY [facility] Polyethylene Glycol (Miralax) 17 gm PER TUBE DAILY [facility] Last Admin: 12/17/17 09:06 Dose: Not Given Senna (Senokot) 2 tab PER TUBE HSPRN PRN PRN Reason: Constipation Sodium Chloride ([place] Nasal [place] 0.65%) 0 ml EA NARE QIDPRN PRN PRN Reason: Nasal Congestion Sodium Chloride (Flush - Normal Saline) 10 ml IVF Q12HR [facility] Last Admin: 12/17/17 09:06 Dose: 10 ml Sodium Chloride (Flush - Normal Saline) 10 ml IVF PRN PRN PRN Reason: Saline Flush
[2017-12-17] MEDS ORDERED: ISOVUE-370 76%-LOCM 1 ML ONE (18:24)
--- NOTE | 2017-12-17 18:50 | PRG ---
DATE OF SERVICE: 12/17/2017 SERVICE: Renal Medicine. SUBJECTIVE: Ms. Walker is a 77-year-old female who was seen for an acute kidney injury and h ypernatremia. Volume repletion was done with a relatively hypotonic solution. Renal function improv ed and the serum sodium is much improved. IV fluid has now been discontinued and currently on free w ater replacement via her PEG tube. No new complaints today. OBJECTIVE: VITAL SIGNS: Blood pressure is 99/67, heart rate 80, respiratory rate 16, temperature 98.5, pulse ox 93%. GENERAL: The patient is awake, nonverbal, comfortable. SKIN: Adequate turgor. HEENT: Pinkish conjunctivae, anicteric sclerae. NECK: No neck mass, no carotid bruits, no JVD. CHEST: No deformities. LUNGS: Clear breath sounds. No wheezing, no crackles. HEART: Normal sinus rhythm. No murmur, no gallops or rubs. ABDOMEN: Globular, soft, nontender, no masses. EXTREMITIES: No edema, no deformities. MEDICATIONS: Medications of 12/17/2017 was reviewed. LABORATORY DATA: Laboratories of 12/17/2017, white count 9.2, hemoglobin 10.5. Sodium 151, potassium 5.1, chloride 124, carbon dioxide 23, BUN 54, creatinine at 1.09. Albumin 2.5. ASSESSMENT AND PLAN: 1. Hypernatremia, much improved with D5 water as well as increase free water via PEG tube. Currentl y, off IV fluid. 2. Acute kidney injury, resolved with IV hydration. Due to the improved renal function as well as h ypernatremia, we will be signing off. Please call if needed.
--- NOTE | 2017-12-17 20:03 | CON ---
DATE OF CONSULTATION: 12/17/2017 REASON FOR CONSULTATION: Bacteremia. HISTORY OF PRESENT ILLNESS: A 77-year-old woman who has a history of mental retardation, cared for b y family members most of her life. The patient used to be ambulatory, but then was admitted to a [facility] home because her mother could not care for her anymore and has been in a long-term for a year . At the long-term, she developed some concerns with her breathing status and a little bit of unr esponsiveness, although she is normally not very responsive. There is tachypnea and some hypotension and tachycardia. There is a little bit of elevated white cell counts. Initial findings showed BP 7 8/49, pulse 89, respirations 39, O2 sat 92%. Neck was supple. Clear lung exam. Heart exam with reg ular rate without murmurs. Gastrostomy tube in the left upper quadrant noted. No distention in the abdominal area. Her white cell count was 14.8 with mature neutrophilia. PH 7.36, pCO2 of 47 venous gas, bicarbonate 27 and creatinine 2.13, which is higher than her baseline. Glucose was 899. Lactic acid 3.8. The patient had a sodium of 175, glucose greater than 550 and AST was 30, ALT 60 and freeman line phosphatase 123. Total bilirubin 0.7, albumin 2.9, globulin 3.0. Urinalysis except for hypergl ycosuria was normal toxicology. Beta hydroxybutyrate 0.4. Chest x-ray on admission showed no acute process identified. She had an echocardiogram with EF around 60%, normal valves except for some thic kening. Currently, Mr. Walker is in the room, in the bed, a number of family members are there with h er. She is not responsive. She keeps her eyes closed, does not follow commands, does not interact w ith examiner. This seems to be her baseline status according to the family members. Her breathing i s somewhat irregular, but they say that this is her usual pattern. There has been no reported seizur e activity and no obvious evidence of aspiration. No diarrhea. PAST MEDICAL HISTORY: Mental retardation, urinary tract infection, oropharyngeal dysphagia, gastrost rachelle tube placement. Never had skin ulcerations. PAST SURGICAL HISTORY: She had ankle surgery after fracture, cataract surgery. ALLERGIES: None. CURRENT MEDICATIONS: Tylenol, Maalox, DuoNeb, aspirin, Dulcolax, Sensipar, vitamin B12, glucagon, in sulin, Imodium, Claritin, Eucerin, Protonix, vancomycin. FAMILY HISTORY: Noncontributory. SOCIAL HISTORY: Used to live with family. Obviously, she had never smoked or had any other type of exposure of significance. PHYSICAL EXAMINATION: VITAL SIGNS: T-max 98.5, blood pressure 99/67, pulse 88, respirations 16, O2 sat 93%-99%. GENERAL: The patient is in bed. She is kind of in somewhat not contracted, but kind of like p osition. She does not have contractures. No areas of skin breakdown noted. She has a peripheral IV access and does not have a Ramirez catheter. HEENT: The scalp was normal. The sclerae are white. Pale conjunctivae. Nasal passages patent. It was difficult to examine her oral cavity. NECK: Supple. LUNGS: Symmetric air entry without obvious crackles or wheezing. CARDIOVASCULAR: S1, S2, regular rate. No S3, S4. No murmurs. ABDOMEN: Soft and not distended or tender. No ascites. No bladder distention. EXTREMITIES: There is no joint inflammatory activity. Trace edema in the lower extremities. Pulses are 1+ in dorsalis pedis. She is somewhat flaccid and hyporeflexic. NEUROLOGIC: I could not get any plantar reflexes and again she seems to be awake, but she does not i nteract with examiner, keeps her eyes closed, does not follow commands. This is her baseline state. LABORATORY AND X-RAY FINDINGS: White cell count is down to 9.2, hemoglobin 10.5, platelets 69,000. The chemistries showed a sodium down to 150, chloride 124, creatinine 1.09. Liver profile has normal ized. Albumin 2.5. Microbiology with coagulase negative Staph 2/2 sets of blood cultures. ASSESSMENT: 1. 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 2. Respiratory symptoms, hypoxemia and hypotension at the long-term. 3. Bacteremia. DISCUSSION: Differential diagnosis includes thromboembolism versus aspiration pneumonia and not yet disclosed intra-abdominal inflammatory process. The coagulase negative Staphylococcus bacteremia is likely a contaminant of the blood sample and I do not believe it represents true bacteremia and do no t recommend treating this finding. CT of chest and abdomen to evaluate for thromboembolism and for i nflammatory processes, aspiration pneumonia and so on.
--- NOTE | 2017-12-17 21:39 | CT ---
CT CHEST: CT ABDOMEN AND PELVIS: 12/17/17 Multiple axial tomograms obtained through the chest, abdomen and pelvis with IV enhancement. INDICATIONS: Hypoxia. Leukocytosis. Tachypnea. CT CHEST: Mild atelectasis and/or infiltrate in the left lung base posteriorly. The lung mcmahon otherwise appea r clear. Mediastinum unremarkable. No adenopathy. IMPRESSION: Mild infiltrate and/or atelectasis in the left lung base. CT chest otherwise unremarkable. CT ABDOMEN AND PELVIS: Liver, spleen and pancreas unremarkable. Kidneys unremarkable. There is a 1.2 cm cyst inferior pole o f the right kidney. No hydronephrosis or urinary calculus identified. The urinary bladder appears unr emarkable. Small bowel loops appear normal caliber. Appendix is not identified. Stool throughout the colon. No evidence of diverticulitis. Aorta is normal caliber. Images through the pelvis show unremarkable appearing uterus and adnexa. No adenopathy identified. Sc oliotic curvature of the thoracolumbar spine. PEG tube is noted in place. IMPRESSION: No acute abnormality identified. POS: [facility]
[2017-12-17 22:24] LABS: Vancomycin, Trough 13.9 ug/mL
[2017-12-17] MEDS: Vancomycin HCl 500 MG in Sodium Chloride 0.9% 100 ML IVPB SCH (23:07)
[2017-12-18] MEDS: HumaLOG 300 UNITS/3 ML VIAL SC PRN ×4 (00:29→20:57)
[2017-12-18 05:49] LABS: #Eosinphils 0.2 thou/uL (0.0-0.7); #Lymphocytes 0.9 thou/uL (1.20-3.40); #Monocytes 0.5 thou/uL (0.11-0.59); #Neutrophils 6.7 thou/uL (1.40-6.50); %Basophils 0.1 % (0.0-1.0); %Eosinophils 2.7 % (0.0-10.0); %Lymphocytes 11.1 % (21.0-51.0); %Monocytes 6.4 % (0.0-10.0); %Neutrophils 79.6 % (42.0-75.0); Hemoglobin 10.4 g/dL (12.0-16.0); Mean Corpuscular HGB CONC 33.8 g/dL (32.0-36.0); Mean Corpuscular Hemoglobin 33.4 pg (27.0-31.0); Mean Corpuscular Volume 98.8 fl (81.0-99.0); Mean Platelet Volume 13.3 fL (7.4-10.4); Platelet Count 60 thou/uL (130-400); RBC Distribution Width 12.7 % (11.5-14.5); Red Blood Cell (RBC) Count 3.11 mill/uL (4.20-5.40); White Blood Cell (WBC) Count 8.4 thou/uL (4.8-10.8)
[2017-12-18 05:50] LABS: Anion Gap 10 mmol/L (10-20); BUN (Urea Nitrogen) 38 mg/dL (9.8-20.1); Calc. Creatinine Clearance 47 mL/min (70-130); Calcium 8.5 mg/dL (7.8-10.44); Carbon Dioxide 21 mmol/L (23-31); Estimated GFR-MDRD 69; Glucose 168 mg/dL (83-110); Potassium 4.6 mmol/L (3.5-5.1); Sodium 152 mmol/L (136-145)
[2017-12-18 06:11] LABS: Chloride 126 mmol/L (98-107)
[2017-12-18] MEDS: Multivitamin W/ Minerals 1 TAB PER TUBE SCH (07:32)
[2017-12-18] MEDS: Cyanocobalamin (Vitamin B-12) 1,000 MCG TAB PER TUBE SCH (07:32)
[2017-12-18] MEDS: Cinacalcet HCl 30 MG TAB PER TUBE SCH ×2 (07:32→16:24)
[2017-12-18] MEDS: Pantoprazole 40 MG GRANULES PACKET PER TUBE SCH (07:32)
[2017-12-18] MEDS: Aspirin 325 MG TAB PER TUBE SCH (07:32)
[2017-12-18] MEDS: Folic Acid 1 MG TAB PER TUBE SCH (07:32)
[2017-12-18] MEDS: Polyethylene Glycol 3350 17 GM Packet PER TUBE SCH (07:33)
--- NOTE | 2017-12-18 09:42 | PDOC.PN ---
- Subjective Encounter Start Date: 12/18/17 Encounter Start Time: 08:00 -: non-verbal Patient seen and examined for hypernatremia. No overnight events - Objective Resuscitation Status: Resuscitation Status DNR:Do Not Resuscitate MAR Reviewed: Yes Vital Signs & Weight: Vital Signs (12 hours) Temp Pulse Resp BP Pulse Ox 12/18/17 08:00 97.9 F 72 18 12/18/17 07:51 97.9 F 72 18 98/59 L 93 L 12/18/17 03:59 97.6 F 77 16 103/76 95 12/18/17 01:00 95 Weight Admit Weight 91 lb Weight 112 lb 1.6 oz I&O: 12/17/17 12/18/17 12/19/17 06:59 06:59 06:59 Intake Total 3634 770 Balance 3634 770 Result Diagrams: 12/18/17 04:47 12/18/17 04:47 Additional Labs: Accuchecks 12/18/17 12/18/17 12/17/17 03:56 00:24 19:34 POC Glucose 190 H 264 H 295 H 12/17/17 12/17/17 15:58 12:12 POC Glucose 293 H 206 H Phys Exam - Physical Examination Constitutional: NAD HEENT: PERRLA, sclera anicteric Neck: no JVD, supple Respiratory: no wheezing, no rales, no rhonchi Cardiovascular: RRR, no significant murmur, no rub Gastrointestinal: soft, no distention, positive bowel sounds PEG+ Musculoskeletal: no edema, pulses present Lymphatic: no nodes Skin: no rash, normal turgor Dx/Plan (1) Sepsis due to coagulase-negative staphylococcal infection Code(s): A41.1 - SEPSIS DUE TO OTHER SPECIFIED STAPHYLOCOCCUS Status: Acute (2) Bacteremia due to coagulase-negative Staphylococcus Code(s): R78.81 - BACTEREMIA Status: Acute (3) AJAY (acute kidney injury) Code(s): N17.9 - ACUTE KIDNEY FAILURE, UNSPECIFIED Status: Resolved (4) Acute metabolic encephalopathy Code(s): G93.41 - METABOLIC ENCEPHALOPATHY Status: Acute Comment: pt is noverbal and now at baseline (5) Demand ischemia of myocardium Code(s): I24.8 - OTHER FORMS OF ACUTE ISCHEMIC HEART DISEASE Status: Acute (6) Hyperglycemia without ketosis Code(s): R73.9 - HYPERGLYCEMIA, UNSPECIFIED Status: Acute (7) Hyperosmolality and hypernatremia Code(s): E87.0 - HYPEROSMOLALITY AND HYPERNATREMIA Status: Acute (8) Lactic acid acidosis Code(s): E87.2 - ACIDOSIS Status: Acute (9) Thrombocytopenia Code(s): D69.6 - THROMBOCYTOPENIA, UNSPECIFIED Status: Acute (10) Cerebral palsy Code(s): G80.9 - CEREBRAL PALSY, UNSPECIFIED Status: Chronic (11) Macrocytosis Code(s): D75.89 - OTHER SPECIFIED DISEASES OF BLOOD AND BLOOD-FORMING ORGANS Status: Chronic (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 (13) PEG (percutaneous endoscopic gastrostomy) status Code(s): Z93.1 - GASTROSTOMY STATUS Status: Chronic (14) Primary hyperparathyroidism Code(s): E21.0 - PRIMARY HYPERPARATHYROIDISM Status: Chronic (15) Protein-calorie malnutrition, severe Code(s): E43 - UNSPECIFIED SEVERE PROTEIN-CALORIE MALNUTRITION Status: Chronic (16) Vitamin D deficiency Code(s): E55.9 - VITAMIN D DEFICIENCY, UNSPECIFIED Status: Chronic (17) Dysphagia, oropharyngeal Code(s): R13.12 - DYSPHAGIA, OROPHARYNGEAL PHASE Status: Chronic - Plan cont current plan of care, continue antibiotics * still has hypernatremia and hyperchloremia, she needs more free water via PEG * repeat BMP tomorrow * as per ID, + ve culture is likely contaminant, will repeat blood culture * on vancomycin for now * medication reviewed as below * symptomatic treatment * expecting discharge to [facility] tomorrow or wednesday. Review of Systems - Review of Systems Other: unable to review due to non verbal status - Medications/Allergies Allergies/Adverse Reactions: Allergies Allergy/AdvReac Type Severity Reaction Status Date / Time No Known Allergies Allergy Verified 07/29/16 16:07 Medications: Current Medications Acetaminophen (Tylenol) 650 mg PER TUBE Q4H PRN PRN Reason: Headache/Fever or Pain Al Hydroxide/Mg Hydroxide (Maalox) 30 ml PER TUBE Q6H PRN PRN Reason: Heartburn or Indigestion Albuterol/Ipratropium (Duoneb) 3 ml NEB Q6H PRN PRN Reason: SOB &/or Wheezing Artificial Tears (Tears Naturale) 0 drop EA EYE PRN PRN PRN Reason: Dry Eyes Aspirin (Aspirin) 325 mg PER TUBE DAILY [facility] Last Admin: 12/18/17 07:32 Dose: 325 mg Bisacodyl (Dulcolax) 10 mg [place] Q24H PRN PRN Reason: Constipation Cholecalciferol (Vitamin D3) 1,000 units PER TUBE DAILY [facility] Last Admin: 12/18/17 07:32 Dose: 1,000 units Cinacalcet (Sensipar) 30 mg PER TUBE BID-[facility] Last Admin: 12/18/17 07:32 Dose: 30 mg Cyanocobalamin (Vitamin B-12) 1,000 mcg PER TUBE DAILY [facility] Last Admin: 12/18/17 07:32 Dose: 1,000 mcg Dextrose/Water (Dextrose 50%) 25 gm IVP PRN PRN PRN Reason: HYPOGLYCEMIA PROTOCOL Folic Acid (Folvite) 1 mg PER TUBE DAILY [facility] Last Admin: 12/18/17 07:32 Dose: 1 mg Glucagon (Glucagon) 1 mg IM PRN PRN PRN Reason: HYPOGLYCEMIA PROTOCOL Guaifenesin (Robitussin Sf) 200 mg PER TUBE Q4H PRN PRN Reason: Cough Hydralazine HCl (Apresoline) 10 mg SLOW IVP Q4H PRN PRN Reason: Systolic BP > 180 Insulin Human Regular 100 (units/ Sodium Chloride) 101 mls @ 0 mls/hr IVPB INF [facility]; Titrate PRN Reason: Protocol Dextrose/Water (D5w) 1,000 mls @ 0 mls/hr IV INF PRN; As Directed PRN Reason: HYPOGLYCEMIA PROTOCOL Vancomycin HCl 750 mg/ Sodium (Chloride) 250 mls @ 250 mls/hr IVPB 2300 [facility] Insulin Human Lispro (Humalog) 0 units SC .AGGRESSIVE SLIDING PRN; Protocol PRN Reason: AGGRESSIVE SLIDING SCALE Last Admin: 12/18/17 00:29 Dose: 9 unit Iron/Minerals/Multivitamins (Theragran M) 1 tab PER TUBE DAILY [facility] Last Admin: 12/18/17 07:32 Dose: 1 tab Loperamide HCl (Imodium) 2 mg PER TUBE PRN PRN PRN Reason: Diarrhea/Loose Stools Loratadine (Claritin) 10 mg PER TUBE DAILY PRN PRN Reason: Allergies Magnesium Hydroxide (Milk Of Magnesium) 30 ml PER TUBE DAILYPRN PRN PRN Reason: Constipation Mineral Oil/White Petrolatum (Eucerin Cream) 0 gm TOP BIDPRN PRN PRN Reason: Dry Skin Ondansetron HCl (Zofran Odt) 4 mg SL Q6H PRN PRN Reason: Nausea/Vomiting Ondansetron HCl (Zofran) 4 mg IVP Q6H PRN PRN Reason: Nausea/Vomiting Pantoprazole Sodium (Protonix) 40 mg PER TUBE DAILY [facility] Last Admin: 12/18/17 07:32 Dose: 40 mg Polyethylene Glycol (Miralax) 17 gm PER TUBE DAILY [facility] Last Admin: 12/18/17 07:33 Dose: Not Given Senna (Senokot) 2 tab PER TUBE HSPRN PRN PRN Reason: Constipation Sodium Chloride ([place] Nasal [place] 0.65%) 0 ml EA NARE QIDPRN PRN PRN Reason: Nasal Congestion Sodium Chloride (Flush - Normal Saline) 10 ml IVF Q12HR [facility] Last Admin: 12/18/17 07:32 Dose: 10 ml Sodium Chloride (Flush - Normal Saline) 10 ml IVF PRN PRN PRN Reason: Saline Flush
[2017-12-18] MEDS: Vancomycin HCl 750 MG in Sodium Chloride 0.9% 250 ML 250 ML IVPB SCH (23:06)
[2017-12-19] MEDS: HumaLOG 300 UNITS/3 ML VIAL SC PRN ×5 (01:11→20:22)
[2017-12-19] MEDS: Aspirin 325 MG TAB PER TUBE SCH (07:35)
[2017-12-19] MEDS: Cinacalcet HCl 30 MG TAB PER TUBE SCH ×2 (07:35→16:16)
[2017-12-19] MEDS: Folic Acid 1 MG TAB PER TUBE SCH (07:35)
[2017-12-19] MEDS: Pantoprazole 40 MG GRANULES PACKET PER TUBE SCH (07:35)
[2017-12-19] MEDS: Multivitamin W/ Minerals 1 TAB PER TUBE SCH (07:35)
[2017-12-19] MEDS: Cyanocobalamin (Vitamin B-12) 1,000 MCG TAB PER TUBE SCH (07:35)
[2017-12-19] MEDS: Polyethylene Glycol 3350 17 GM Packet PER TUBE SCH (07:36)
[2017-12-19 09:15] LABS: Anion Gap 11 mmol/L (10-20); BUN (Urea Nitrogen) 39 mg/dL (9.8-20.1); Calc. Creatinine Clearance 43 mL/min (70-130); Calcium 9.2 mg/dL (7.8-10.44); Carbon Dioxide 23 mmol/L (23-31); Chloride 123 mmol/L (98-107); Estimated GFR-MDRD 66; Glucose 208 mg/dL (83-110); Potassium 3.8 mmol/L (3.5-5.1); Sodium 153 mmol/L (136-145)
--- NOTE | 2017-12-19 11:55 | PDOC.PN ---
- Subjective Encounter Start Date: 12/19/17 Encounter Start Time: 07:30 Subjective: awakens to touch, non verbal -: not in distress - Objective Resuscitation Status: Resuscitation Status DNR:Do Not Resuscitate MAR Reviewed: Yes Vital Signs & Weight: Vital Signs (12 hours) Temp Pulse Resp BP Pulse Ox 12/19/17 07:46 98.3 F 77 16 12/19/17 07:33 98.3 F 77 16 103/64 96 12/19/17 04:00 98.5 F 70 20 105/70 12/19/17 00:00 98.1 F 74 18 106/66 96 Weight Admit Weight 91 lb Weight 104 lb 7 oz I&O: 12/18/17 12/19/17 12/20/17 06:59 06:59 06:59 Intake Total 770 3095 Output Total 3 Balance 770 3092 Result Diagrams: 12/18/17 04:47 12/19/17 08:48 Additional Labs: Accuchecks 12/19/17 12/19/17 12/19/17 11:24 07:36 04:40 POC Glucose 200 H 232 H 257 H 12/19/17 12/18/17 12/18/17 01:10 19:56 16:23 POC Glucose 231 H 225 H 236 H 12/18/17 12:05 POC Glucose 223 H Phys Exam - Physical Examination HEENT: PERRLA, sclera anicteric Neck: no nodes, no JVD Respiratory: no wheezing, no rales Cardiovascular: RRR, no significant murmur Gastrointestinal: soft, non-tender, positive bowel sounds Musculoskeletal: no edema, pulses present Neurological: non-focal Dx/Plan (1) Severe dehydration Code(s): E86.0 - DEHYDRATION Status: Acute (2) Chronic anemia Code(s): D64.9 - ANEMIA, UNSPECIFIED Status: Chronic (3) Acute metabolic encephalopathy Code(s): G93.41 - METABOLIC ENCEPHALOPATHY Status: Resolved Comment: pt is noverbal and now at baseline (4) Hyperosmolality and hypernatremia Code(s): E87.0 - HYPEROSMOLALITY AND HYPERNATREMIA Status: Acute (5) Cerebral palsy Code(s): G80.9 - CEREBRAL PALSY, UNSPECIFIED Status: Chronic Qualifiers: Cerebral palsy type: unspecified type Qualified Code(s): G80.9 - Cerebral palsy, unspecified (6) Dysphagia, oropharyngeal Code(s): R13.12 - DYSPHAGIA, OROPHARYNGEAL PHASE Status: Chronic (7) PEG (percutaneous endoscopic gastrostomy) status Code(s): Z93.1 - GASTROSTOMY STATUS Status: Chronic (8) Protein-calorie malnutrition, severe Code(s): E43 - UNSPECIFIED SEVERE PROTEIN-CALORIE MALNUTRITION Status: Chronic (9) AJAY (acute kidney injury) Code(s): N17.9 - ACUTE KIDNEY FAILURE, UNSPECIFIED Status: Resolved - Plan sod still around 150's, is getting free water around 1500ml/day along with -: tube feeds. Poor prognosis with underlying med and poor funct status -: is on vanc iv daily -: continue asp, nebs prn -: will add lantus 10u bid for uncontrolled dm * . Review of Systems - Medications/Allergies Allergies/Adverse Reactions: Allergies Allergy/AdvReac Type Severity Reaction Status Date / Time No Known Allergies Allergy Verified 07/29/16 16:07 Medications: Current Medications Acetaminophen (Tylenol) 650 mg PER TUBE Q4H PRN PRN Reason: Headache/Fever or Pain Al Hydroxide/Mg Hydroxide (Maalox) 30 ml PER TUBE Q6H PRN PRN Reason: Heartburn or Indigestion Albuterol/Ipratropium (Duoneb) 3 ml NEB Q6H PRN PRN Reason: SOB &/or Wheezing Artificial Tears (Tears Naturale) 0 drop EA EYE PRN PRN PRN Reason: Dry Eyes Aspirin (Aspirin) 325 mg PER TUBE DAILY [facility] Last Admin: 12/19/17 07:35 Dose: 325 mg Bisacodyl (Dulcolax) 10 mg [place] Q24H PRN PRN Reason: Constipation Cholecalciferol (Vitamin D3) 1,000 units PER TUBE DAILY [facility] Last Admin: 12/19/17 07:35 Dose: 1,000 units Cinacalcet (Sensipar) 30 mg PER TUBE BID-[facility] Last Admin: 12/19/17 07:35 Dose: 30 mg Cyanocobalamin (Vitamin B-12) 1,000 mcg PER TUBE DAILY [facility] Last Admin: 12/19/17 07:35 Dose: 1,000 mcg Dextrose/Water (Dextrose 50%) 25 gm IVP PRN PRN PRN Reason: HYPOGLYCEMIA PROTOCOL Folic Acid (Folvite) 1 mg PER TUBE DAILY [facility] Last Admin: 12/19/17 07:35 Dose: 1 mg Glucagon (Glucagon) 1 mg IM PRN PRN PRN Reason: HYPOGLYCEMIA PROTOCOL Guaifenesin (Robitussin Sf) 200 mg PER TUBE Q4H PRN PRN Reason: Cough Hydralazine HCl (Apresoline) 10 mg SLOW IVP Q4H PRN PRN Reason: Systolic BP > 180 Dextrose/Water (D5w) 1,000 mls @ 0 mls/hr IV INF PRN; As Directed PRN Reason: HYPOGLYCEMIA PROTOCOL Vancomycin HCl 750 mg/ Sodium (Chloride) 250 mls @ 250 mls/hr IVPB 2300 [facility] Last Admin: 12/18/17 23:06 Dose: 250 mls Insulin Human Lispro (Humalog) 0 units SC .AGGRESSIVE SLIDING PRN; Protocol PRN Reason: AGGRESSIVE SLIDING SCALE Last Admin: 12/19/17 11:47 Dose: 3 unit Iron/Minerals/Multivitamins (Theragran M) 1 tab PER TUBE DAILY [facility] Last Admin: 12/19/17 07:35 Dose: 1 tab Loperamide HCl (Imodium) 2 mg PER TUBE PRN PRN PRN Reason: Diarrhea/Loose Stools Loratadine (Claritin) 10 mg PER TUBE DAILY PRN PRN Reason: Allergies Magnesium Hydroxide (Milk Of Magnesium) 30 ml PER TUBE DAILYPRN PRN PRN Reason: Constipation Mineral Oil/White Petrolatum (Eucerin Cream) 0 gm TOP BIDPRN PRN PRN Reason: Dry Skin Ondansetron HCl (Zofran Odt) 4 mg SL Q6H PRN PRN Reason: Nausea/Vomiting Ondansetron HCl (Zofran) 4 mg IVP Q6H PRN PRN Reason: Nausea/Vomiting Pantoprazole Sodium (Protonix) 40 mg PER TUBE DAILY [facility] Last Admin: 12/19/17 07:35 Dose: 40 mg Polyethylene Glycol (Miralax) 17 gm PER TUBE DAILY [facility] Last Admin: 12/19/17 07:36 Dose: Not Given Senna (Senokot) 2 tab PER TUBE HSPRN PRN PRN Reason: Constipation Sodium Chloride ([place] Nasal [place] 0.65%) 0 ml EA NARE QIDPRN PRN PRN Reason: Nasal Congestion Sodium Chloride (Flush - Normal Saline) 10 ml IVF Q12HR [facility] Last Admin: 12/19/17 07:36 Dose: 10 ml Sodium Chloride (Flush - Normal Saline) 10 ml IVF PRN PRN PRN Reason: Saline Flush
[2017-12-19] MEDS: Insulin Glargine 10 UNITS in Pre-Filled Syringe 1 EACH SC SCH (20:08)
[2017-12-19] MEDS: Vancomycin HCl 750 MG in Sodium Chloride 0.9% 250 ML 250 ML IVPB SCH (22:38)
[2017-12-20] MEDS: HumaLOG 300 UNITS/3 ML VIAL SC PRN ×2 (01:07→06:15)
--- NOTE | 2017-12-20 03:10 | PRG ---
DATE OF SERVICE: 12/19/2017 SUBJECTIVE: The patient was sleeping, but then she woke up. It is hard to differentiate one from the other, but the family is well familiar with manifestations as there were major problems. She is eating well. No respiratory symptoms, particularly no evidence of aspiration, no diarrhea and voiding spontaneously. PHYSICAL EXAMINATION: VITAL SIGNS: T-max 98.5. Other vital signs are normal. O2 sat 96% on room air. LUNGS: Clear. HEART: S1, S2, regular rate. ABDOMEN: Soft, but distended. LABORATORY DATA: White cell count 8.4, hemoglobin 10.4, platelets 60,000, 79% neutrophils. Creatinine 0.84, glucose 200. Lactic acid is down to 1.9. Creatinine has improved from 2.13-0.84, bilirubin is normal. AST 34, ALT is down to 46, alkaline phosphatase is normal at 102. Chest, abdomen, and pelvis CT showed a mild atelectasis and/or infiltrate in left lung base. Liver, spleen and pancreas normal. Kidney normal. Urinary bladder unremarkable. Bowel loops normal and adnexa normal. Blood cultures with the contaminants noted previously. 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 The bacteremia is related to contamination of sample, not true bacteremia. At this time, respiratory complication is the more likely scenario. She may have had a mild infection, could be a viral infection or mild aspiration. Thromboembolism is not completely ruled out, but appears to be less likely. Probably should be able to be discharged soon on oral antimicrobial therapy. SHON
[2017-12-20 04:53] LABS: Anion Gap 9 mmol/L (10-20); BUN (Urea Nitrogen) 40 mg/dL (9.8-20.1); Calc. Creatinine Clearance 46 mL/min (70-130); Calcium 9.4 mg/dL (7.8-10.44); Carbon Dioxide 23 mmol/L (23-31); Chloride 124 mmol/L (98-107); Estimated GFR-MDRD 73; Glucose 213 mg/dL (83-110); Potassium 4.2 mmol/L (3.5-5.1); Sodium 152 mmol/L (136-145)
[2017-12-20] MEDS: Folic Acid 1 MG TAB PER TUBE SCH (07:36)
[2017-12-20] MEDS: Cinacalcet HCl 30 MG TAB PER TUBE SCH ×2 (07:36→16:38)
[2017-12-20] MEDS: Cyanocobalamin (Vitamin B-12) 1,000 MCG TAB PER TUBE SCH (07:37)
[2017-12-20] MEDS: Aspirin 325 MG TAB PER TUBE SCH (07:37)
[2017-12-20] MEDS: Multivitamin W/ Minerals 1 TAB PER TUBE SCH (07:37)
[2017-12-20] MEDS: Pantoprazole 40 MG GRANULES PACKET PER TUBE SCH (07:37)
[2017-12-20] MEDS: Polyethylene Glycol 3350 17 GM Packet PER TUBE SCH (07:41)
[2017-12-20] MEDS: Insulin Glargine 10 UNITS in Pre-Filled Syringe 1 EACH SC SCH ×2 (07:42→20:46)
--- NOTE | 2017-12-20 11:41 | PDOC.PN ---
- Subjective Encounter Start Date: 12/20/17 Encounter Start Time: 09:40 Subjective: awakens to touch, non verbal -: not in distress -: sister and brother in law in room - Objective Resuscitation Status: Resuscitation Status DNR:Do Not Resuscitate MAR Reviewed: Yes Vital Signs & Weight: Vital Signs (12 hours) Temp Pulse Resp BP Pulse Ox 12/20/17 08:16 98.6 F 82 18 113/76 93 L 12/20/17 08:00 98.6 F 82 18 94 L 12/20/17 04:00 98.9 F 87 18 104/73 94 L 12/20/17 00:52 97.7 F 81 18 113/75 94 L Weight Admit Weight 91 lb Weight 110 lb 6.4 oz I&O: 12/19/17 12/20/17 12/21/17 06:59 06:59 06:59 Intake Total 3095 3195 Output Total 3 4 Balance 3092 3191 Result Diagrams: 12/18/17 04:47 12/20/17 03:45 Additional Labs: Accuchecks 12/20/17 12/20/17 12/19/17 03:54 00:51 20:03 POC Glucose 217 H 205 H 232 H 12/19/17 12/19/17 16:09 11:24 POC Glucose 249 H 200 H Phys Exam - Physical Examination HEENT: PERRLA, sclera anicteric Neck: no JVD, supple Respiratory: no wheezing, no rales Cardiovascular: RRR, no significant murmur Gastrointestinal: soft, non-tender, positive bowel sounds peg+ Musculoskeletal: no edema, pulses present Neurological: non-focal, moves all 4 limbs Dx/Plan (1) Severe dehydration Code(s): E86.0 - DEHYDRATION Status: Resolved (2) Chronic anemia Code(s): D64.9 - ANEMIA, UNSPECIFIED Status: Chronic (3) Acute metabolic encephalopathy Code(s): G93.41 - METABOLIC ENCEPHALOPATHY Status: Resolved Comment: pt is noverbal and now at baseline (4) Hyperosmolality and hypernatremia Code(s): E87.0 - HYPEROSMOLALITY AND HYPERNATREMIA Status: Acute (5) Cerebral palsy Code(s): G80.9 - CEREBRAL PALSY, UNSPECIFIED Status: Chronic Qualifiers: Cerebral palsy type: unspecified type Qualified Code(s): G80.9 - Cerebral palsy, unspecified (6) Dysphagia, oropharyngeal Code(s): R13.12 - DYSPHAGIA, OROPHARYNGEAL PHASE Status: Chronic (7) PEG (percutaneous endoscopic gastrostomy) status Code(s): Z93.1 - GASTROSTOMY STATUS Status: Chronic (8) Protein-calorie malnutrition, severe Code(s): E43 - UNSPECIFIED SEVERE PROTEIN-CALORIE MALNUTRITION Status: Chronic (9) AJAY (acute kidney injury) Code(s): N17.9 - ACUTE KIDNEY FAILURE, UNSPECIFIED Status: Resolved - Plan is getting free water and peg feedings -: sod still around 152 -: d/w sister at bedside, wants her to go into hospice at [facility] -: prognosis guarded, family is aware -: is on iv vanc will switch to augmentin in am * . Review of Systems - Medications/Allergies Allergies/Adverse Reactions: Allergies Allergy/AdvReac Type Severity Reaction Status Date / Time No Known Allergies Allergy Verified 07/29/16 16:07 Medications: Current Medications Acetaminophen (Tylenol) 650 mg PER TUBE Q4H PRN PRN Reason: Headache/Fever or Pain Al Hydroxide/Mg Hydroxide (Maalox) 30 ml PER TUBE Q6H PRN PRN Reason: Heartburn or Indigestion Albuterol/Ipratropium (Duoneb) 3 ml NEB Q6H PRN PRN Reason: SOB &/or Wheezing Artificial Tears (Tears Naturale) 0 drop EA EYE PRN PRN PRN Reason: Dry Eyes Aspirin (Aspirin) 325 mg PER TUBE DAILY [facility] Last Admin: 12/20/17 07:37 Dose: 325 mg Bisacodyl (Dulcolax) 10 mg [place] Q24H PRN PRN Reason: Constipation Cholecalciferol (Vitamin D3) 1,000 units PER TUBE DAILY [facility] Last Admin: 12/20/17 07:36 Dose: 1,000 units Cinacalcet (Sensipar) 30 mg PER TUBE BID-[facility] Last Admin: 12/20/17 07:36 Dose: 30 mg Cyanocobalamin (Vitamin B-12) 1,000 mcg PER TUBE DAILY [facility] Last Admin: 12/20/17 07:37 Dose: 1,000 mcg Dextrose/Water (Dextrose 50%) 25 gm IVP PRN PRN PRN Reason: HYPOGLYCEMIA PROTOCOL Folic Acid (Folvite) 1 mg PER TUBE DAILY [facility] Last Admin: 12/20/17 07:36 Dose: 1 mg Glucagon (Glucagon) 1 mg IM PRN PRN PRN Reason: HYPOGLYCEMIA PROTOCOL Guaifenesin (Robitussin Sf) 200 mg PER TUBE Q4H PRN PRN Reason: Cough Hydralazine HCl (Apresoline) 10 mg SLOW IVP Q4H PRN PRN Reason: Systolic BP > 180 Dextrose/Water (D5w) 1,000 mls @ 0 mls/hr IV INF PRN; As Directed PRN Reason: HYPOGLYCEMIA PROTOCOL Vancomycin HCl 750 mg/ Sodium (Chloride) 250 mls @ 250 mls/hr IVPB 2300 [facility] Last Admin: 12/19/17 22:38 Dose: 250 mls Insulin Glargine 10 units/ (Miscellaneous Medication) 0.1 mls @ 0 mls/hr SC BID [facility] Last Admin: 12/20/17 07:42 Dose: 0.1 mls Insulin Human Lispro (Humalog) 0 units SC .AGGRESSIVE SLIDING PRN; Protocol PRN Reason: AGGRESSIVE SLIDING SCALE Last Admin: 12/20/17 06:15 Dose: 6 unit Iron/Minerals/Multivitamins (Theragran M) 1 tab PER TUBE DAILY [facility] Last Admin: 12/20/17 07:37 Dose: 1 tab Loperamide HCl (Imodium) 2 mg PER TUBE PRN PRN PRN Reason: Diarrhea/Loose Stools Loratadine (Claritin) 10 mg PER TUBE DAILY PRN PRN Reason: Allergies Magnesium Hydroxide (Milk Of Magnesium) 30 ml PER TUBE DAILYPRN PRN PRN Reason: Constipation Mineral Oil/White Petrolatum (Eucerin Cream) 0 gm TOP BIDPRN PRN PRN Reason: Dry Skin Ondansetron HCl (Zofran Odt) 4 mg SL Q6H PRN PRN Reason: Nausea/Vomiting Ondansetron HCl (Zofran) 4 mg IVP Q6H PRN PRN Reason: Nausea/Vomiting Pantoprazole Sodium (Protonix) 40 mg PER TUBE DAILY [facility] Last Admin: 12/20/17 07:37 Dose: 40 mg Polyethylene Glycol (Miralax) 17 gm PER TUBE DAILY [facility] Last Admin: 12/20/17 07:41 Dose: Not Given Senna (Senokot) 2 tab PER TUBE HSPRN PRN PRN Reason: Constipation Sodium Chloride ([place] Nasal [place] 0.65%) 0 ml EA NARE QIDPRN PRN PRN Reason: Nasal Congestion Sodium Chloride (Flush - Normal Saline) 10 ml IVF Q12HR [facility] Last Admin: 12/20/17 07:41 Dose: 10 ml Sodium Chloride (Flush - Normal Saline) 10 ml IVF PRN PRN PRN Reason: Saline Flush
[2017-12-20 12:59] VITALS: BMI 18.3
[2017-12-20 22:27] LABS: Vancomycin, Trough 17.6 ug/mL
[2017-12-20] MEDS: Vancomycin HCl 750 MG in Sodium Chloride 0.9% 250 ML 250 ML IVPB SCH (23:36)
[2017-12-21] MEDS: HumaLOG 300 UNITS/3 ML VIAL SC PRN (05:41)
[2017-12-21 05:43] LABS: Anion Gap 8 mmol/L (10-20); BUN (Urea Nitrogen) 40 mg/dL (9.8-20.1); Calc. Creatinine Clearance 46 mL/min (70-130); Carbon Dioxide 26 mmol/L (23-31); Chloride 122 mmol/L (98-107); Estimated GFR-MDRD 67; Glucose 310 mg/dL (83-110); Potassium 4.1 mmol/L (3.5-5.1); Sodium 152 mmol/L (136-145)
[2017-12-21] MEDS: Cinacalcet HCl 30 MG TAB PER TUBE SCH (07:43)
[2017-12-21] MEDS: Folic Acid 1 MG TAB PER TUBE SCH (07:43)
[2017-12-21] MEDS: Pantoprazole 40 MG GRANULES PACKET PER TUBE SCH (07:44)
[2017-12-21] MEDS: Aspirin 325 MG TAB PER TUBE SCH (07:44)
[2017-12-21] MEDS: Insulin Glargine 10 UNITS in Pre-Filled Syringe 1 EACH SC SCH (07:45)
[2017-12-21] MEDS: Cyanocobalamin (Vitamin B-12) 1,000 MCG TAB PER TUBE SCH (07:45)
[2017-12-21] MEDS: Multivitamin W/ Minerals 1 TAB PER TUBE SCH (07:46)
[2017-12-21] MEDS: Polyethylene Glycol 3350 17 GM Packet PER TUBE SCH (07:46)
[2017-12-21] MEDS ORDERED: Insulin Glargine 15 UNITS in Pre-Filled Syringe 1 EACH SC SCH (09:00)
[2017-12-21] MEDS ORDERED: Amoxicillin/Potassium Clav 600 mg/5 ml Oral Suspension PO SCH (09:00)
[2017-12-21 12:31] VITALS: BP 107/71; TEMP 97.9
--- NOTE | 2017-12-21 13:47 | PDOC.PN ---
- Subjective Encounter Start Date: 12/21/17 Encounter Start Time: 07:20 Subjective: awakens easily, non verbal -: not oriented - Objective Resuscitation Status: Resuscitation Status DNR:Do Not Resuscitate MAR Reviewed: Yes Vital Signs & Weight: Vital Signs (12 hours) Temp Pulse Resp BP Pulse Ox 12/21/17 12:30 97.9 F 85 20 107/71 93 L 12/21/17 08:00 97.7 F 70 22 H 96 12/21/17 07:29 97.7 F 70 22 H 96/56 L 95 Weight Admit Weight 91 lb Weight 110 lb 6.4 oz I&O: 12/20/17 12/21/17 12/22/17 06:59 06:59 06:59 Intake Total 3195 1810 Output Total 4 Balance 3191 1810 Result Diagrams: 12/18/17 04:47 12/21/17 05:09 Additional Labs: Accuchecks 12/21/17 12/21/17 12/20/17 11:09 05:12 19:51 POC Glucose 171 H 337 H 245 H Phys Exam - Physical Examination HEENT: moist MMs, sclera anicteric Neck: no JVD, supple Respiratory: no wheezing, no rales Cardiovascular: RRR, no significant murmur peg+ Gastrointestinal: soft, non-tender, positive bowel sounds Musculoskeletal: no edema, pulses present Neurological: non-focal Dx/Plan (1) Severe dehydration Code(s): E86.0 - DEHYDRATION Status: Resolved (2) Chronic anemia Code(s): D64.9 - ANEMIA, UNSPECIFIED Status: Chronic (3) Acute metabolic encephalopathy Code(s): G93.41 - METABOLIC ENCEPHALOPATHY Status: Resolved Comment: pt is noverbal and now at baseline (4) Hyperosmolality and hypernatremia Code(s): E87.0 - HYPEROSMOLALITY AND HYPERNATREMIA Status: Acute (5) Cerebral palsy Code(s): G80.9 - CEREBRAL PALSY, UNSPECIFIED Status: Chronic Qualifiers: Cerebral palsy type: unspecified type Qualified Code(s): G80.9 - Cerebral palsy, unspecified (6) Dysphagia, oropharyngeal Code(s): R13.12 - DYSPHAGIA, OROPHARYNGEAL PHASE Status: Chronic (7) PEG (percutaneous endoscopic gastrostomy) status Code(s): Z93.1 - GASTROSTOMY STATUS Status: Chronic (8) Protein-calorie malnutrition, severe Code(s): E43 - UNSPECIFIED SEVERE PROTEIN-CALORIE MALNUTRITION Status: Chronic (9) AJAY (acute kidney injury) Code(s): N17.9 - ACUTE KIDNEY FAILURE, UNSPECIFIED Status: Resolved - Plan hemostable -: dc plan to snf with hospice today -: dm is slowly getting controlled, is on glucerna 1.2cal -: prognosis guarded-family is aware * . Review of Systems - Medications/Allergies Allergies/Adverse Reactions: Allergies Allergy/AdvReac Type Severity Reaction Status Date / Time No Known Allergies Allergy Verified 07/29/16 16:07
--- NOTE | 2017-12-22 11:17 | DIS ---
DATE OF ADMISSION: 12/15/2017 DATE OF DISCHARGE: 12/23/2017 DISCHARGE DISPOSITION: To custodial. PRIMARY DISCHARGE DIAGNOSES: Severe dehydration with acute metabolic encephalopathy, hypernatremia and hyperosmolality, chronic dysphagia with PEG tube. SECONDARY DISCHARGE DIAGNOSES: History of cerebral palsy with chronic encephalopathy, severe protein malnutrition, acute kidney injury on admission got resolved. PROCEDURES DONE DURING HOSPITALIZATION: Chest x-ray done showed no acute process. Echo with 2D Doppler showed an EF of 65%-70%. Blood culture grew Staph hominis and coag negative Staph. Repeat blood culture done on 12/18/2017 showed no growth at 48 hours. LABORATORY DATA: Had a white count of 14 on the day of admission with discharge numbers of 8. Discharge H&H 10 and 30, platelet count is 60 on the day of discharge. Discharge BUN and creatinine is 40 and 0.8. Discharge sodium levels are 152. Patient's admitting sodium level was 175 with chloride of 136, BUN of 113, creatinine of 2.1, and serum glucose of 899. Troponin I was indeterminate peaking up to 0.60. CK levels 1526, albumin was 2.9. DISCHARGE MEDICATIONS: Aspirin 325 mg daily, Augmentin 600 mg via PEG tube twice daily for another 7 days, Sensipar 30 mg twice daily, vitamin B12 of 1000 mcg daily, folic acid 1 mg daily, Lantus 15 units subcutaneous twice daily, DuoNebs q.6 hourly p.r.n., Claritin 10 mg p.r.n., multivitamin 1 tab daily, MiraLax 17 grams daily. ALLERGIES: No known drug allergies. INPATIENT CONSULTS: Dr. Chong for nephrology, Dr. Ames for pulmonary and critical care. BRIEF COURSE DURING HOSPITALIZATION: Patient initially got admitted on 2017, after she was sent from custodial for shortness of breath and worsening cognitive status. Patient was severely dehydrated with sodium of 175 , chloride of 138, and BUN of 112. She was also suspected to have sepsis. Patient was placed on broad-spectrum antibiotics and has had aggressive diuresis done. Patient's serum sugar was more than 800 on admission. She has known history of cerebral palsy with organic encephalopathy at baseline. She does not communicate at baseline. Patient is also bed bound at baseline at the custodial. She was initially on insulin drip and has been transitioned to Lantus 15 units subcutaneous twice daily. Patient is on Glucerna 1.2 Mark 3 cans a day via peg, to increase gradually based on patient's residual and tolerance at the custodial. She is also getting free water via PEG tube 200 mL 5 times daily. Patient has had slow and progressive improvement in her severe dehydration. At the time of discharge, patient's sodium is still 152. She is a DO NOT RESUSCITATE and family have decided to go in for hospice at the custodial. Patient has very poor quality of life and has multiple chronic medical conditions and is essentially bed bound and is nonverbal. Case management consultation was requested for the same. This has been set up today and she will be discharged back to the custodial with hospice. A total of 35 minutes was spent on discharge plan. Please see a [id number] documentation on [employer] for the day of discharge. SHON
--- NOTE | 2017-12-27 12:46 | PQF ---
SAP Building Illuminating Engineer Crystal Reports Winform ROSE Sutton VINAYA KUMAR MD [id number] [facility]- B07 [id number] CLINICAL DOCUMENTATION CLARIFICATION FORM: POST DISCHARGE Addendum to original discharge summary date: ____ Late entry note date: __ Please exercise your independent, professional judgment in responding to the clarification form. Clinical indicators are provided on the bottom of this form for your review Please check appropriate box(s) to clarify if the following diagnosis has been ruled in or ruled out: Demand Ischemia non ST evelated PR type 2 (CDI/Coding list diagnosis here) [ x ] Ruled in diagnosis [ ] Continue to treat [ ] Resolved [ ] Ruled out diagnosis [ ] Cannot rule out diagnosis [ ] Other diagnosis [ ] Unable to determine In addition, please specify: Present on Admission (POA): [ x ] Yes [ ] No [ ] Unable to determine For continuity of documentation, please document condition throughout progress notes and discharge summary. Thank You. CLINICAL INDICATORS - SIGNS / SYMPTOMS / LABS To support the diagnosis- H&P- Demand Ischemia non ST PR type 2 To support resolution of diagnosis- Not mentioned in Discharge Summary RISK FACTORS To support diagnosis TREATMENTS To support diagnosis Cardiology consultation (This form is maintained as a part of the permanent medical record) 2014 [employer]. All Rights Reserved Christianne [email or web address] [phone] MTDD
--- NOTE | 2017-12-27 12:55 | PQF ---
ROSE PAL VINAYA KUMAR MD [id number] [facility]- B07 [id number] CLINICAL DOCUMENTATION CLARIFICATION FORM: POST DISCHARGE Addendum to original discharge summary date: ____ Late entry note date: __ Please exercise your independent, professional judgment in responding to the clarification form. Clinical indicators are provided on the bottom of this form for your review. Please clarify if the Diagnosis of Sepsis/ Bacteremia entered in Progress notes. Thank you Please check appropriate box(es): [ ] Sepsis due to: (Pna, UTI, gangrenous gall bladder, etc.) Due to: [ ] Device (please specify) [ ] Implant [ ] Graft [ ] Infusion [ ] SIRS due to non-infectious process (please specify etiology) [ ] with organ dysfunction [ ] without organ dysfunction [ ] Severe sepsis with acute organ dysfunction of: (Examples: respiratory failure, encephalopathy, acute kidney failure, other) [ ] Septic Shock [ ] Localized infection without sepsis [ ] Other diagnosis [ ] Unable to determine [ x] Ruled out In addition, please specify: Present on Admission (POA): [ ] Yes [ ] No [ ] Unable to determine For continuity of documentation, please document condition throughout progress notes and discharge summary. Thank You. CLINICAL INDICATORS - SIGNS / SYMPTOMS / LABS Altered mental status Fever or hypothermia (<96.8 F/36 C or > 100.4 F/38C) Respiratory rate >20/min, Hypoxemia, SBP <100mmHg Metabolic acidosis Lactic Acid >2mmol/L, Increase BUN/Anime Artist, decrease GFR, coag abnormalities, thrombocytopenia-plts <100k Oliguria Shock-hypotension resistant to IV fluid boluses WBC count (>12,000/mm^4 or <4000/mm^3 or 10% neuts, 10% bands) Hyperglycemia in absence of diabetes mellitus Positive blood cultures RISK FACTORS SAP Bladder Cleaner Crystal Reports Winform ViewerInfection/Bacteremia Surgery / surgical instrumentation / trauma Ruptured/perforated bowel, ruptured appendix Immunosuppression Advancing Age TREATMENTS: Initiation Sepsis Protocol ICU Daily CBC Blood/sputum/wound cultures ID Consult IV antibiotics - broad spectrum IV ?uids Vasopressors, meds (This form is maintained as a part of the permanent medical record) 2014 [employer]. All Rights Reserved [email or web address] [email or web address] [phone] MTDD
--- NOTE | 2017-12-27 13:07 | PQF ---
SAP Medical Registrar Crystal Reports Winform ROSE Sutton VINAYA KUMAR MD [id number] [facility]- B07 [id number] CLINICAL DOCUMENTATION CLARIFICATION FORM: POST DISCHARGE Addendum to original discharge summary date: ____ Late entry note date: __ Please exercise your independent, professional judgment in responding to the clarification form. Clinical indicators are provided on the bottom of this form for your review Please check appropriate box(s) to clarify if the following diagnosis has been ruled in or ruled out: Reviewer request clarification for the aspiration mentioned in the record. Thank you Aspiration Pneumonia _(CDI/Coding list diagnosis here) [ x ] Ruled in diagnosis [ ] Continue to treat [ ] Resolved [ ] Ruled out diagnosis [ ] Cannot rule out diagnosis [ ] Other diagnosis [ ] Unable to determine In addition, please specify: Present on Admission (POA): [x ] Yes [ ] No [ ] Unable to determine For continuity of documentation, please document condition throughout progress notes and discharge summary. Thank You. CLINICAL INDICATORS - SIGNS / SYMPTOMS / LABS To support the diagnosis To support resolution of diagnosis RISK FACTORS To support diagnosis TREATMENTS To support diagnosis (This form is maintained as a part of the permanent medical record) 2014 [employer]. All Rights Reserved Christianne [email or web address] [phone] MTDD
== END 2017-12-21 13:42 | DRG 280 ==
LOC: ERS 02:18 → IMCU/EMU 05:21 → T4-A 12-17 11:26
PROVIDERS: ADMIT Internal Medicine; ATTEND Internal Medicine
DX: I21.A1 Myocardial infarction type 2 (principal); G93.41 Metabolic encephalopathy; E43 Unspecified severe protein-calorie malnutrition; J69.0 Pneumonitis due to inhalation of food and vomit; N17.9 Acute kidney failure, unspecified; E87.0 Hyperosmolality and hypernatremia; E87.2 Acidosis; M62.82 Rhabdomyolysis; Z68.1 Body mass index [BMI] 19.9 or less, adult; E86.0 Dehydration; I95.9 Hypotension, unspecified; G80.9 Cerebral palsy, unspecified; E78.5 Hyperlipidemia, unspecified; R73.9 Hyperglycemia, unspecified; F79 Unspecified intellectual disabilities; R13.12 Dysphagia, oropharyngeal phase; D64.9 Anemia, unspecified; D75.89 Other specified diseases of blood and blood-forming organs; R47.89 Other speech disturbances; E21.0 Primary hyperparathyroidism; E55.9 Vitamin D deficiency, unspecified; D69.6 Thrombocytopenia, unspecified; Z74.01 Bed confinement status; Z87.440 Personal history of urinary (tract) infections; Z93.1 Gastrostomy status; Z79.4 Long term (current) use of insulin
CPT/HCPCS: 36415; 36416; 51701; 71045; 71260; 74177; 80048; 80053; 80202; 81003; 81015; 82010; 82330; 82550; 82553; 82803; 83605; 83735; 83930; 84100; 84484; 85025; 87040; 87077; 87086; 87149; 87186; 93005; 93306; 94760; 96361; 96365; 96368; A4216; A4217; A4353; C9113; J0692; J1815; J1956; J3370; J3480; J7050; J7070

== ENCOUNTER 2018-07-18 09:47 | Emergency (ER) | payer MEDICARE ==
--- NOTE | 2018-07-22 19:23 | RAD ---
CONTRAST UPPER GASTROINTESTINAL RADIOGRAPH 07/22/18 HISTORY: Dysfunction of gastrostomy. FINDINGS: Radiographic imaging performed subsequent to enteric contrast administration via patient's gastrostom y. There is opacification of a portion of the gastric lumen as well as nondilated proximal small arsh l. IMPRESSION: Contrast does opacify the stomach and proximal small bowel. POS: [facility]
== END 2018-07-18 13:05 ==
LOC: ERS 09:47
DX: Z43.1 Encounter for attention to gastrostomy (principal); D64.9 Anemia, unspecified; E05.90 Thyrotoxicosis, unspecified without thyrotoxic crisis or storm; E78.5 Hyperlipidemia, unspecified; G80.9 Cerebral palsy, unspecified; Z79.899 Other long term (current) drug therapy
CPT/HCPCS: 43760; 74018; B4087

== ENCOUNTER 2018-09-28 16:24 | Emergency (ER) | payer MEDICARE | END 2018-09-28 19:10 | disposition home or self-care (01) | LOC: ERS 16:24 | DX: Z43.1 Encounter for attention to gastrostomy (principal); E78.5 Hyperlipidemia, unspecified; E78.00 Pure hypercholesterolemia, unspecified; D64.9 Anemia, unspecified; F41.9 Anxiety disorder, unspecified; E55.9 Vitamin D deficiency, unspecified; G80.9 Cerebral palsy, unspecified | CPT/HCPCS: 99283 ==

== ENCOUNTER 2019-01-27 06:20 | Emergency (ER) | payer MEDICARE ==
--- NOTE | 2019-01-27 07:45 | RAD ---
KUB: Date: 01/27/19 HISTORY: PEG tube placement. COMPARISON: Exam done approximately 30 minutes ago. FINDINGS: There is considerable motion artifact on this study. Contrast is seen within the stomach without any obvious signs of extravasation. IMPRESSION: Contrast within the stomach. No definite signs of extravasation. Considerable motion artifact. POS: [facility]
--- NOTE | 2019-01-27 07:46 | RAD ---
KUB: Date: 01/27/19 HISTORY: PEG tube replaced. FINDINGS: Bowel gas pattern appears nonobstructed. Gastrostomy tube is seen. The contrast has been injected int o the tube and is seen within the stomach without any definite signs for extravasation. The position of the tube appears similar to the 07/18/18 exam. IMPRESSION: PEG tube placement with contrast injected into the stomach. POS: [facility]
== END 2019-01-27 08:25 ==
LOC: ERS 06:20
DX: K94.23 Gastrostomy malfunction (principal); E78.5 Hyperlipidemia, unspecified; G80.9 Cerebral palsy, unspecified; D64.9 Anemia, unspecified; E55.9 Vitamin D deficiency, unspecified; E78.00 Pure hypercholesterolemia, unspecified; E21.3 Hyperparathyroidism, unspecified; F41.9 Anxiety disorder, unspecified; Z79.899 Other long term (current) drug therapy; Z79.4 Long term (current) use of insulin
CPT/HCPCS: 43762; 74018; B4087

== ENCOUNTER 2019-07-23 06:16 | Emergency (ER) | payer MEDICARE | END 2019-07-23 08:40 | LOC: ERS 06:16 | DX: Z43.1 Encounter for attention to gastrostomy (principal); E78.5 Hyperlipidemia, unspecified; G80.9 Cerebral palsy, unspecified; E55.9 Vitamin D deficiency, unspecified; D64.9 Anemia, unspecified; F41.9 Anxiety disorder, unspecified; E21.3 Hyperparathyroidism, unspecified; Z79.899 Other long term (current) drug therapy; Z79.4 Long term (current) use of insulin; Z79.891 Long term (current) use of opiate analgesic | CPT/HCPCS: 43762; B4087 ==

== ENCOUNTER 2019-08-13 19:59 | Inpatient (IN) | payer MEDICARE, MEDICAID ==
[2019-08-13 21:17] LABS: Hemoglobin 11.3 g/dL (12.0-16.0); Mean Corpuscular HGB CONC 31.4 g/dL (32.0-36.0); Mean Corpuscular Hemoglobin 30.8 pg (27.0-31.0); Mean Corpuscular Volume 97.8 fL (78.0-98.0); Mean Platelet Volume 10.3 fL (7.4-10.4); Platelet Count 354 thou/uL (130-400); RBC Distribution Width 11.8 % (11.5-14.5); Red Blood Cell (RBC) Count 3.67 mill/uL (4.20-5.40); White Blood Cell (WBC) Count 21.3 thou/uL (4.8-10.8)
[2019-08-13] MEDS ORDERED: Ampicillin/Sulbactam 1.5 GM in Sodium Chloride 0.9% 100 ML IVPB SCH (21:30)
[2019-08-13 21:33] LABS: Band 2 % (5-11); Lymphocytes 2 % (21-51); MDiff Complete? YES; Monocytes 4 % (0-10); Neutrophil 92 % (42-75); Platelet Morphology Comment Appears Adequate
--- NOTE | 2019-08-13 21:35 | RAD ---
EXAM: CHEST ONE VIEW HISTORY: Fever COMPARISON: 12/15/2017 FINDINGS: The cardiac silhouette and pulmonary vasculature is within normal limits. There is parenchymal airspa ce density seen at the right lung base which may be related to pneumonia or aspiration pneumonitis. There is persistent elevation right hemidiaphragm. Left lung remains clear. Osteopenia is present. Va scular calcifications are seen in the thoracic aorta. IMPRESSION: Airspace density right lung base which may represent pneumonia or aspiration pneumonitis. Follow-up t o resolution is recommended.
[2019-08-13 22:04] LABS: ALT (SGPT) 56 U/L (8-55); AST (SGOT) 58 U/L (5-34); Albumin 3.3 g/dL (3.4-4.8); Alkaline Phosphatase 155 U/L (40-110); Anion Gap 18 mmol/L (10-20); BUN (Urea Nitrogen) 29 mg/dL (9.8-20.1); Bilirubin, Total 0.5 mg/dL (0.2-1.2); CK (CPK) 34 U/L (29-168); Calc. Creatinine Clearance 0 mL/min (70-130); Calcium 9.4 mg/dL (7.8-10.44); Carbon Dioxide 22 mmol/L (23-31); Chloride 103 mmol/L (98-107); Estimated GFR-MDRD 61; Globulin 4.9 g/dL (2.4-3.5); Glucose 209 mg/dL (83-110); Potassium 4.1 mmol/L (3.5-5.1); Protein, Total 8.2 g/dL (6.0-8.3); Sodium 139 mmol/L (136-145)
[2019-08-13 22:43] LABS: Bacteria/HPF 4+ HPF (None Seen); Bilirubin Negative (Negative); Blood, Urine Negative (Negative); Clarity Clear (Clear); Glucose, Urine (Dipstick) Normal (Negative); Leukocyte 250 Leu/uL (Negative); Mucous/LPF Rare LPF (<2+); Nitrite Negative (Negative); Protein, Urine (Dipstick) 30 mg/dL (Neg-Trace); RBC/HPF 0-3 HPF (0-3); Renal Epithelial 0-3 HPF (None Seen); Squamous Epithelial 0-3 HPF (0-3)
[2019-08-14 00:19] LABS: Lactic Acid 3.6 mmol/L (0.5-2.2)
[2019-08-14] MEDS ORDERED: Acetaminophen 325 MG TAB PO PRN (00:34)
[2019-08-14] MEDS ORDERED: Ondansetron PF 4 MG/2 ML Vial IVP PRN (00:34)
[2019-08-14] MEDS ORDERED: Ondansetron ODT 4 MG TAB SL PRN (00:34)
[2019-08-14] MEDS ORDERED: Lactated Ringer's 1,000 ML IV SCH (00:45)
[2019-08-14] MEDS: Ampicillin/Sulbactam 1.5 GM in Sodium Chloride 0.9% 100 ML IVPB SCH ×2 (03:40→09:15)
[2019-08-14] MEDS ORDERED: Sodium Bicarbonate Tab 325 MG TAB PER TUBE PRN (11:13)
[2019-08-14] MEDS ORDERED: Pancrelipase DR 12000 1 CAP PER TUBE PRN (11:13)
[2019-08-14 12:11] VITALS: BMI 18.7
--- NOTE | 2019-08-14 16:08 | PDOC.EVN ---
Event Note - Event Note Event Note: H & p dictated [id number] sepsis with UTI and asp PNA
[2019-08-14] MEDS ORDERED: Acetaminophen/Codeine 30-300mg Tablet PER TUBE PRN (16:12)
[2019-08-14] MEDS ORDERED: Triamcinolone 0.1% Cream 15 GM TUBE TOP PRN (16:12)
[2019-08-14] MEDS ORDERED: Ondansetron ODT 8 MG TAB PER TUBE PRN (16:12)
[2019-08-14] MEDS ORDERED: Diabetic Tussin DM 5 ML UDCUP PER TUBE PRN (16:12)
[2019-08-14] MEDS ORDERED: Loratadine 10 MG TAB PER TUBE PRN (16:12)
[2019-08-14] MEDS ORDERED: Polyethylene Glycol 3350 17 GM Packet PER TUBE PRN (16:12)
[2019-08-14 16:28] LABS: #Eosinphils 0.1 thou/uL (0.0-0.7); #Lymphocytes 0.8 thou/uL (1.20-3.40); #Monocytes 1.3 thou/uL (0.11-0.59); #Neutrophils 10.6 thou/uL (1.40-6.50); %Basophils 0.2 % (0.0-1.0); %Lymphocytes 6.3 % (21.0-51.0); %Monocytes 9.9 % (0.0-10.0); %Neutrophils 82.5 % (42.0-75.0); Mean Corpuscular HGB CONC 31.6 g/dL (32.0-36.0); Mean Corpuscular Hemoglobin 31.2 pg (27.0-31.0); Mean Corpuscular Volume 98.8 fL (78.0-98.0); Mean Platelet Volume 9.3 fL (7.4-10.4); Platelet Count 316 thou/uL (130-400); RBC Distribution Width 11.6 % (11.5-14.5); Red Blood Cell (RBC) Count 3.21 mill/uL (4.20-5.40); White Blood Cell (WBC) Count 12.8 thou/uL (4.8-10.8)
[2019-08-14 17:20] LABS: Lactic Acid 1.6 mmol/L (0.5-2.2)
[2019-08-14] MEDS: Sodium Chloride 0.9% 1,000 ML IV SCH (18:08)
[2019-08-14] MEDS: Cinacalcet HCl 30 MG TAB PER TUBE SCH (18:08)
[2019-08-14] MEDS: Vancomycin HCl 1 GM in Premix Bag 1 BAG IVPB SCH (18:09)
[2019-08-14] MEDS: Ketotifen Fumarate 0.025% Ophth Soln 5 ml Bottle EA EYE SCH ×2 (18:38→21:06)
[2019-08-14] MEDS: Insulin Glargine 10 UNITS in Pre-Filled Syringe 1 EACH SC SCH (21:03)
[2019-08-14] MEDS: Lorazepam 1 MG TAB PER TUBE SCH (21:04)
[2019-08-14] MEDS: Piperacillin/Tazobactam 3.375 GM in Sodium Chloride 0.9% 100 ML IVPB SCH (21:04)
[2019-08-14] MEDS: PHOS-NAK 1 PKT PACK PER TUBE SCH (21:04)
--- NOTE | 2019-08-14 22:31 | HP ---
CHIEF COMPLAINT: Chest pain and cough. HISTORY OF PRESENT ILLNESS: A 79-year-old female with cognitive impairment with cerebral palsy, hypertension, type 2 diabetes mellitus, aphasia, dysphagia, PEG tube dependant, brought by family for ongoing cough for the last 3 days and worsening with emesis on Wednesday. Per family, she has not had any febrile episode or seizure. Other than this acute concern, she was at baseline. She gets continuous tube feeds at home. REVIEW OF SYSTEMS: Not obtainable directly from the patient. PAST MEDICAL HISTORY: 1. Hyperparathyroidism. 2. Hyperlipidemia. 3. Cerebral palsy. 4. Vitamin D deficiency. 5. Dysphagia with PEG tube dependent nutrition. 6. Anemia. ALLERGIES: SHE HAS NO KNOWN DRUG ALLERGIES. MEDICATIONS: 1. Ativan 0.5 mg as needed. 2. DuoNeb. 3. Hydroxyzine 25 mg twice a day. 4. Lantus 10 units twice a day. 5. Sensipar 30 mg twice a day. 6. Simethicone 80 mg daily. 7. Codeine #3. 8. Zofran as needed. PHYSICAL EXAMINATION: VITAL SIGNS: Her temperature is 97.9, blood pressure 128/75 with a pulse of 95 , she is saturating 92% on room air. GENERAL: The patient is quite fragile, contractions on her extremities. Nonverbal. She has a diaper for incontinence. HEENT: Pupils equal, round, and reactive, anicteric. CARDIOVASCULAR: Regular rate and rhythm without murmurs, rubs, or gallops. LUNGS: Clear to auscultation bilaterally. CHEST: Chest movement is symmetrical. ABDOMEN: Did not reveal any distention or tenderness. Good bowel sounds. PEG tube in place. EXTREMITIES: Without any pitting edema or rash. LABORATORY DATA: Chest x-ray showed airspace density in the right lung base. Her white count is 21.3, hemoglobin 11.3, platelet is 354. Lactic acid is 3.60 last night. AST 58, ALT 56, alkaline phosphatase 155, creatinine 0.89. UA showed bacteria as well as pyuria, and proteinuria. IMPRESSION AND PLAN: A 79-year-old female with cerebral palsy, presenting with sepsis secondary to urinary tract infection as well as aspiration pneumonia. She has received IV fluid as well as Vancomycin and Unasyn in the ER. We will continue the broad spectrum antibiotics and follow up on the culture results. Two sets of blood cultures have been done on . Sepsis with UTI and aspiration pneumonia Continue with IV fluids. Speech Therapy has followed her this morning. Continue with her Glucerna as bolus at this point along with free water. Leukocytosis - due to above. Routine labs monitoring. Rest of the management based on clinical course. Job ID: [id number] MTDD
[2019-08-15] MEDS: Piperacillin/Tazobactam 3.375 GM in Sodium Chloride 0.9% 100 ML IVPB SCH ×3 (05:11→21:28)
[2019-08-15] MEDS: Sodium Chloride 0.9% 1,000 ML IV SCH (05:13)
[2019-08-15] MEDS ORDERED: Dextrose 5% in Water 1,000 ML IV PRN (05:17)
[2019-08-15] MEDS ORDERED: Dextrose 50% Abboject 50 ML SYRINGE SLOW IVP PRN (05:17)
[2019-08-15 05:42] LABS: #Basophils 0.1 thou/uL (0.0-0.2); #Eosinphils 0.1 thou/uL (0.0-0.7); #Lymphocytes 0.5 thou/uL (1.20-3.40); #Monocytes 1.2 thou/uL (0.11-0.59); #Neutrophils 11.8 thou/uL (1.40-6.50); %Basophils 0.4 % (0.0-1.0); %Eosinophils 0.7 % (0.0-10.0); %Lymphocytes 3.7 % (21.0-51.0); %Monocytes 8.6 % (0.0-10.0); %Neutrophils 86.6 % (42.0-75.0); Hemoglobin 9.5 g/dL (12.0-16.0); Mean Corpuscular HGB CONC 32.6 g/dL (32.0-36.0); Mean Corpuscular Hemoglobin 31.8 pg (27.0-31.0); Mean Corpuscular Volume 97.6 fL (78.0-98.0); Mean Platelet Volume 9.2 fL (7.4-10.4); Platelet Count 327 thou/uL (130-400); RBC Distribution Width 11.5 % (11.5-14.5); Red Blood Cell (RBC) Count 2.97 mill/uL (4.20-5.40); White Blood Cell (WBC) Count 13.6 thou/uL (4.8-10.8)
[2019-08-15 05:59] LABS: Anion Gap 11 mmol/L (10-20); BUN (Urea Nitrogen) 14 mg/dL (9.8-20.1); Calc. Creatinine Clearance 50 mL/min (70-130); Calcium 8.4 mg/dL (7.8-10.44); Carbon Dioxide 26 mmol/L (23-31); Chloride 112 mmol/L (98-107); Estimated GFR-MDRD 84; Glucose 165 mg/dL (83-110); Potassium 3.7 mmol/L (3.5-5.1); Sodium 145 mmol/L (136-145)
[2019-08-15] MEDS: Vancomycin HCl 1 GM in Premix Bag 1 BAG IVPB SCH (06:21)
[2019-08-15] MEDS: Insulin Regular 300 UNITS/3 ML VIAL SC PRN ×3 (06:21→16:02)
[2019-08-15] MEDS: Ketotifen Fumarate 0.025% Ophth Soln 5 ml Bottle EA EYE SCH ×4 (08:36→21:29)
[2019-08-15] MEDS: Cinacalcet HCl 30 MG TAB PER TUBE SCH ×2 (08:36→16:03)
[2019-08-15] MEDS: Insulin Glargine 10 UNITS in Pre-Filled Syringe 1 EACH SC SCH ×2 (08:37→21:29)
[2019-08-15] MEDS: PHOS-NAK 1 PKT PACK PER TUBE SCH ×2 (08:37→21:27)
--- NOTE | 2019-08-15 13:10 | RAD ---
EXAM: CHEST ONE VIEW HISTORY: Aspiration pneumonia. COMPARISON: 08/13/2019 FINDINGS: The cardiac silhouette and pulmonary vasculature is within normal limits. Again noted are patchy pare nchymal densities seen at the right lung base greater medially. There is minimal patchy density now present at the left lung base. Findings may be related to bibasilar pneumonia or aspiration pneumonit is. Follow-up to resolution is recommended. There is mild left convex curvature of thoracolumbar spine which could be related to positioning. Osteopenia is noted. Vascular calcifications are seen in the thoracic aorta. IMPRESSION: Bibasilar parenchymal airspace opacities which may be related to bibasilar pneumonia or aspiration pn eumonitis. Follow-up to resolution is recommended
--- NOTE | 2019-08-15 15:02 | PDOC.HOSPP ---
- Subjective Subjective: no acute events,d/w RN. pt resting comfortably. - Objective Vital Signs & Weight: Vital Signs (12 hours) Temp Pulse Resp BP Pulse Ox 08/15/19 10:40 98.0 F 80 20 155/67 H 93 L 08/15/19 08:37 95 08/15/19 07:20 97.9 F 87 20 146/91 H 95 08/15/19 04:18 100.0 F H 88 18 139/66 93 L Weight Admit Weight 104 lb 2 oz Weight 102 lb 4.8 oz I&O: 08/14/19 08/15/19 08/16/19 06:59 06:59 06:59 Intake Total 650 2330 160 Output Total 200 1000 Balance 450 1330 160 Result Diagrams: 08/15/19 05:23 08/15/19 05:23 Additional Labs: Accuchecks 08/15/19 08/15/19 08/14/19 10:48 05:10 20:47 POC Glucose 175 H 170 H 103 Hospitalist ROS - Medication Medications: Active Medications Generic Name Dose Route Start Last Admin Trade Name Freq PRN Reason Stop Dose Admin Cholecalciferol 1,000 units 08/15/19 09:00 08/15/19 08:36 Vitamin D3 PER TUBE 1,000 units DAILY VIRGIL Administration Cinacalcet 30 mg 08/14/19 17:00 08/15/19 08:36 Sensipar PER TUBE 30 mg BID-WM VIRGIL Administration Piperacillin Sod/Tazobactam 100 mls @ 200 mls/hr 08/14/19 22:00 08/15/19 14: 01 Sod 3.375 gm/ Sodium Chloride IVPB 100 mls Q8HR VIRGIL Administration Insulin Glargine 10 units/ 0.1 mls @ 0 mls/hr 08/14/19 21:00 08/14/19 21:03 Miscellaneous Medication SC Not Given HS VIRGIL Insulin Glargine 10 units/ 0.1 mls @ 0 mls/hr 08/15/19 09:00 08/15/19 08:37 Miscellaneous Medication SC 0.1 mls QAM VIRGIL Administration Insulin Human Regular 0 units 08/15/19 05:17 08/15/19 11:02 Humulin R SC 2 unit .MILD SLIDING SCALE PRN Administration Mild Correctional Scale Ketotifen Fumarate 0 drop 08/14/19 17:00 08/15/19 14:01 Zaditor 0.025% Ophth Soln EA EYE 1 drop QID VIRGIL Administration Lorazepam 0.5 mg 08/14/19 21:00 08/14/19 21:04 Ativan PER TUBE 0.5 mg HS VIRGIL Administration Miscellaneous Medication 1 pkt 08/14/19 21:00 08/15/19 08:37 Phos-Nak PER TUBE 1 pkt BID VIRGIL Administration - Exam General Appearance: NAD ENT: normocephalic atraumatic Neck: supple, no JVD Heart: RRR, no murmur Respiratory: CTAB, no wheezes Gastrointestinal: soft, non-distended, normal bowel sounds Neurological: no focal deficits Hosp A/P - Plan old records reviewed/req Sepsis d/t UTI and asp PNA UTI - culx pending staph bactermia -coag neg staph -likely contamination -fw on rept yevgeniy - on vacn + zosyn Asp PNA - d/t TF and ongoing risk for aspiration -common precautions and cw TF -fw on yevgeniy dispo - pt from [place] code status - DNR
[2019-08-15] MEDS ORDERED: Furosemide 20 MG/2 ML VIAL SLOW IVP SCH (17:45)
[2019-08-15] MEDS: Lorazepam 1 MG TAB PER TUBE SCH (21:27)
[2019-08-16] MEDS ORDERED: Lorazepam 2 MG/ML VIAL SLOW IVP SCH (00:30)
[2019-08-16] MEDS: Acetylcysteine 10% 100 MG/ML 30 ml Vial INH PRN ×2 (00:39→07:35)
[2019-08-16 05:22] LABS: #Lymphocytes 0.7 thou/uL (1.20-3.40); #Monocytes 1.2 thou/uL (0.11-0.59); #Neutrophils 10.4 thou/uL (1.40-6.50); %Basophils 0.3 % (0.0-1.0); %Eosinophils 0.4 % (0.0-10.0); %Lymphocytes 5.7 % (21.0-51.0); %Monocytes 9.3 % (0.0-10.0); %Neutrophils 84.3 % (42.0-75.0); Hemoglobin 9.3 g/dL (12.0-16.0); Mean Corpuscular HGB CONC 31.8 g/dL (32.0-36.0); Mean Corpuscular Hemoglobin 31.4 pg (27.0-31.0); Mean Corpuscular Volume 98.8 fL (78.0-98.0); Mean Platelet Volume 9.9 fL (7.4-10.4); Platelet Count 299 thou/uL (130-400); RBC Distribution Width 11.7 % (11.5-14.5); Red Blood Cell (RBC) Count 2.96 mill/uL (4.20-5.40); White Blood Cell (WBC) Count 12.3 thou/uL (4.8-10.8)
[2019-08-16 05:42] LABS: Anion Gap 14 mmol/L (10-20); BUN (Urea Nitrogen) 20 mg/dL (9.8-20.1); Calc. Creatinine Clearance 42 mL/min (70-130); Calcium 8.8 mg/dL (7.8-10.44); Carbon Dioxide 25 mmol/L (23-31); Chloride 111 mmol/L (98-107); Estimated GFR-MDRD 68; Glucose 219 mg/dL (83-110); Potassium 3.4 mmol/L (3.5-5.1); Sodium 147 mmol/L (136-145); Vancomycin, Trough 17.4 ug/mL
[2019-08-16] MEDS: Piperacillin/Tazobactam 3.375 GM in Sodium Chloride 0.9% 100 ML IVPB SCH ×3 (06:11→20:55)
[2019-08-16] MEDS: Insulin Regular 300 UNITS/3 ML VIAL SC PRN ×2 (06:28→13:54)
[2019-08-16] MEDS: Vancomycin HCl 1 GM in Premix Bag 1 BAG IVPB SCH (06:47)
[2019-08-16] MEDS: Insulin Glargine 10 UNITS in Pre-Filled Syringe 1 EACH SC SCH ×2 (08:12→20:55)
[2019-08-16] MEDS: Ketotifen Fumarate 0.025% Ophth Soln 5 ml Bottle EA EYE SCH ×4 (08:12→20:17)
[2019-08-16] MEDS: PHOS-NAK 1 PKT PACK PER TUBE SCH ×2 (08:12→20:15)
[2019-08-16] MEDS: Cinacalcet HCl 30 MG TAB PER TUBE SCH ×2 (08:12→17:17)
--- NOTE | 2019-08-16 13:33 | PDOC.HOSPP ---
- Subjective Subjective: she is more lethargic today, d/w niece's spouse at length. tachypnic and high BG. - Objective Vital Signs & Weight: Vital Signs (12 hours) Temp Pulse Resp BP Pulse Ox 08/16/19 11:17 98.1 F 85 20 118/75 97 08/16/19 10:09 75 36 H 98 08/16/19 07:33 73 36 H 95 08/16/19 07:30 97.9 F 82 20 110/70 97 08/16/19 03:54 38 H 97 08/16/19 02:35 86 36 H 97 Weight Admit Weight 104 lb 2 oz Weight 102 lb 4.8 oz I&O: 08/15/19 08/16/19 08/17/19 06:59 06:59 06:59 Intake Total 2330 2460 Output Total 1000 400 Balance 1330 2060 Result Diagrams: 08/16/19 04:56 08/16/19 04:56 Additional Labs: Accuchecks 08/16/19 08/15/19 08/15/19 11:23 20:15 15:33 POC Glucose 241 H 193 H 208 H Hospitalist ROS - Medication Medications: Active Medications Generic Name Dose Route Start Last Admin Trade Name Freq PRN Reason Stop Dose Admin Acetylcysteine 600 mg 08/15/19 18:43 08/16/19 07:35 Mucomyst 10% (Oral Or Inh) INH 600 mg TIDPRN PRN Administration .THICK SECRETIONS Albuterol/Ipratropium 3 ml 08/14/19 16:12 08/15/19 16:36 Duoneb NEB 3 ml Q6H PRN Administration SOB &/or Wheezing Albuterol/Ipratropium 3 ml 08/16/19 02:30 08/16/19 10:09 Duoneb NEB 3 ml [id number] VIRGIL Administration Cholecalciferol 1,000 units 08/15/19 09:00 08/16/19 08:12 Vitamin D3 PER TUBE 1,000 units DAILY VIRGIL Administration Cinacalcet 30 mg 08/14/19 17:00 08/16/19 08:12 Sensipar PER TUBE 30 mg BID-WM VIRGIL Administration Piperacillin Sod/Tazobactam 100 mls @ 200 mls/hr 08/14/19 22:00 08/16/19 06: 11 Sod 3.375 gm/ Sodium Chloride IVPB 100 mls Q8HR VIRGIL Administration Insulin Glargine 10 units/ 0.1 mls @ 0 mls/hr 08/14/19 21:00 08/15/19 21:29 Miscellaneous Medication SC 0.1 mls HS VIRGIL Administration Insulin Glargine 10 units/ 0.1 mls @ 0 mls/hr 08/15/19 09:00 08/16/19 08:12 Miscellaneous Medication SC 0.1 mls QAM VIRGIL Administration Vancomycin HCl 1 gm/ Device 200 mls @ 200 mls/hr 08/16/19 06:00 08/16/19 06: 47 IVPB 200 mls Q24HR VIRGIL Administration Insulin Human Regular 0 units 08/15/19 05:17 08/16/19 06:28 Humulin R SC 3 unit .MILD SLIDING SCALE PRN Administration Mild Correctional Scale Ketotifen Fumarate 0 drop 08/14/19 17:00 08/16/19 08:12 Zaditor 0.025% Ophth Soln EA EYE 1 drop QID VIRGIL Administration Lorazepam 0.5 mg 08/14/19 21:00 08/15/19 21:27 Ativan PER TUBE 0.5 mg HS VIRGIL Administration Miscellaneous Medication 1 pkt 08/14/19 21:00 08/16/19 08:12 Phos-Nak PER TUBE 1 pkt BID VIRGIL Administration - Exam General Appearance: ill appearing Heart: RRR Respiratory: tachypneic, wheezes Gastrointestinal: soft, non-distended Extremities - other findings: contractures Psychiatric: not oriented Hosp A/P - Plan Sepsis d/t UTI and asp PNA UTI - culx --mixed leo staph bactermia -coag neg staph -likely contamination -fw on rept yevgeniy of -- no growth - on vanc + zosyn---vanc level on -- therapeutic. Asp PNA - d/t TF and ongoing risk for aspiration -common precautions and cw TF Tachypnea, wheezing --tx as above, + BD PRN, lasix +PRn Mild hypernatremia -d/t lack of access to free water -free water given as part of Tf -will give additional hyperglycemia DM2 --on scheduled insulin + SSI dispo - pt from [place] - plan to send her back once medically able. code status - DNR
[2019-08-16] MEDS: Lorazepam 1 MG TAB PER TUBE SCH (20:15)
[2019-08-17] MEDS: Piperacillin/Tazobactam 3.375 GM in Sodium Chloride 0.9% 100 ML IVPB SCH ×3 (05:10→21:13)
[2019-08-17 05:18] LABS: #Eosinphils 0.5 thou/uL (0.0-0.7); #Lymphocytes 0.9 thou/uL (1.20-3.40); #Monocytes 1.1 thou/uL (0.11-0.59); #Neutrophils 9.6 thou/uL (1.40-6.50); %Basophils 0.3 % (0.0-1.0); %Eosinophils 3.8 % (0.0-10.0); %Lymphocytes 7.3 % (21.0-51.0); %Monocytes 8.7 % (0.0-10.0); %Neutrophils 79.9 % (42.0-75.0); Hemoglobin 8.9 g/dL (12.0-16.0); Mean Corpuscular HGB CONC 31.8 g/dL (32.0-36.0); Mean Corpuscular Hemoglobin 31.8 pg (27.0-31.0); Mean Corpuscular Volume 99.9 fL (78.0-98.0); Mean Platelet Volume 9.4 fL (7.4-10.4); Platelet Count 330 thou/uL (130-400); RBC Distribution Width 11.8 % (11.5-14.5); Red Blood Cell (RBC) Count 2.79 mill/uL (4.20-5.40); White Blood Cell (WBC) Count 12.1 thou/uL (4.8-10.8)
[2019-08-17 05:29] LABS: Anion Gap 13 mmol/L (10-20); BUN (Urea Nitrogen) 21 mg/dL (9.8-20.1); Calc. Creatinine Clearance 46 mL/min (70-130); Calcium 9.5 mg/dL (7.8-10.44); Carbon Dioxide 25 mmol/L (23-31); Chloride 112 mmol/L (98-107); Estimated GFR-MDRD 76; Glucose 152 mg/dL (83-110); Potassium 4.1 mmol/L (3.5-5.1); Sodium 146 mmol/L (136-145)
[2019-08-17 05:36] LABS: Vancomycin, Trough 16.8 ug/mL
[2019-08-17] MEDS: Vancomycin HCl 1 GM in Premix Bag 1 BAG IVPB SCH (06:23)
[2019-08-17] MEDS: Insulin Glargine 10 UNITS in Pre-Filled Syringe 1 EACH SC SCH ×2 (08:48→20:25)
[2019-08-17] MEDS: PHOS-NAK 1 PKT PACK PER TUBE SCH ×2 (08:48→20:07)
[2019-08-17] MEDS: Cinacalcet HCl 30 MG TAB PER TUBE SCH ×2 (08:48→17:54)
[2019-08-17] MEDS: Ketotifen Fumarate 0.025% Ophth Soln 5 ml Bottle EA EYE SCH ×4 (08:50→20:07)
[2019-08-17] MEDS ORDERED: Lorazepam 2 MG/ML VIAL SLOW IVP SCH (09:39)
--- NOTE | 2019-08-17 11:26 | CON ---
DATE OF CONSULTATION: 08/17/2019 CONSULTING PHYSICIAN: Joseph Nick MD This encompassed 50 minutes time, of that time greater than 50% spent with the patient and/or the patient in the hospital. REASON FOR CONSULTATION: Respiratory failure. HISTORY OF PRESENT ILLNESS: This is a 79-year-old female with cerebral palsy who was admitted with cough and respiratory distress. Apparently, symptoms started about 3 days prior to admission. She has apparently been getting worse during this hospitalization. She is a DNAR. Primary service thought we might have suggestions on how to handle the patient's continued respiratory discomfort. PAST MEDICAL HISTORY: 1. Multiple urinary tract infections. 2. Swallowing dysfunction. 3. Cerebral palsy. 4. Hyperparathyroidism. 5. Hyperlipidemia. 6. Vitamin D deficiency. PAST SURGICAL HISTORY: Feeding tube placement, cataract surgery, and ankle surgery. ALLERGIES: NONE. SOCIAL HISTORY: Nonsmoker and nondrinker. FAMILY MEDICAL HISTORY: Unremarkable. MEDICATIONS: Prior to admission, 1. Ativan. 2. DuoNeb. 3. Hydroxyzine. 4. Lantus. 5. Sensipar. 6. Simethicone. 7. Codeine No.3. 8. Zofran. REVIEW OF SYSTEMS: Cannot be obtained because of her altered mental status. PHYSICAL EXAMINATION: VITAL SIGNS: Temperature 99.3, pulse 88, respirations running in the 20s current time, O2 saturation 93% on 2 L, and blood pressure 129/70. GENERAL: She is a chronically ill-appearing female. She will not respond to my questions. HEENT: Unremarkable. NECK: No adenopathy or JVD. LUNGS: Coarse upper airway rhonchi radiating outward. ABDOMEN: Soft and nontender. CARDIAC: S1, S2. Regular. EXTREMITIES: No clubbing or cyanosis. Very contracted. Her x-ray shows some chronic changes in the right lower lobe. LABORATORY DATA: White blood cell count 12.1, hematocrit 27.9, and platelet count 330. Sodium 146, potassium 4.1, chloride 112, CO2 of 25, BUN 21, creatinine 0.7, glucose 152. ASSESSMENT: 1. Chronic respiratory failure. 2. Likely continued severe upper airway dysfunction in combination with probable pneumonia. PLAN: I think you are doing all you can in terms of antibiotics, breathing treatments, etc. We might consider putting a scopolamine patch on and treating her with a short course of steroids. She is not a candidate for BiPAP. I agree with palliative care measures. Job ID: [id number]
[2019-08-17] MEDS ORDERED: Bacteriostatic Water 30 ML VIAL FS PRN (11:38)
[2019-08-17] MEDS: Insulin Regular 300 UNITS/3 ML VIAL SC PRN ×3 (11:48→20:26)
[2019-08-17] MEDS: methylPREDNISolone Sod Succ 40 MG VIAL IVP SCH ×3 (11:48→23:09)
[2019-08-17] MEDS: Scopolamine 1.5 mg/72 hour Patch TD SCH (11:48)
--- NOTE | 2019-08-17 11:56 | PDOC.HOSPP ---
- Subjective Subjective: pt breathing heavy in 50s, RR. persistent Leuko; rept bl yevgeniy neg., on abx. talk to Pulm. hospice consult. updated family y'day. - Objective Vital Signs & Weight: Vital Signs (12 hours) Temp Pulse Resp BP Pulse Ox 08/17/19 11:07 98.3 F 103 H 50 H 137/83 94 L 08/17/19 10:28 88 28 H 93 L 08/17/19 07:12 99.3 F 98 52 H 129/70 93 L 08/17/19 06:27 86 50 H 94 L 08/17/19 03:25 98.1 F 85 40 H 97/75 95 08/17/19 02:43 79 36 H 98 08/17/19 00:00 99.2 F 79 40 H 119/76 95 Weight Admit Weight 104 lb 2 oz Weight 102 lb 4.8 oz I&O: 08/16/19 08/17/19 08/18/19 06:59 06:59 06:59 Intake Total 2460 2670 Output Total 400 200 Balance 2060 2470 Result Diagrams: 08/17/19 05:05 08/17/19 05:05 Additional Labs: Accuchecks 08/17/19 08/16/19 08/16/19 10:55 20:10 14:45 POC Glucose 185 H 157 H 172 H Hospitalist ROS - Medication Medications: Active Medications Generic Name Dose Route Start Last Admin Trade Name Freq PRN Reason Stop Dose Admin Acetylcysteine 600 mg 08/15/19 18:43 08/16/19 07:35 Mucomyst 10% (Oral Or Inh) INH 600 mg TIDPRN PRN Administration .THICK SECRETIONS Albuterol/Ipratropium 3 ml 08/14/19 16:12 08/15/19 16:36 Duoneb NEB 3 ml Q6H PRN Administration SOB &/or Wheezing Albuterol/Ipratropium 3 ml 08/16/19 02:30 08/17/19 10:28 Duoneb NEB 3 ml [id number] VIRGIL Administration Cholecalciferol 1,000 units 08/15/19 09:00 08/17/19 08:48 Vitamin D3 PER TUBE 1,000 units DAILY VIRGIL Administration Cinacalcet 30 mg 08/14/19 17:00 08/17/19 08:48 Sensipar PER TUBE 30 mg BID-WM VIRGIL Administration Piperacillin Sod/Tazobactam 100 mls @ 200 mls/hr 08/14/19 22:00 08/17/19 05: 10 Sod 3.375 gm/ Sodium Chloride IVPB 100 mls Q8HR VIRGIL Administration Insulin Glargine 10 units/ 0.1 mls @ 0 mls/hr 08/14/19 21:00 08/16/19 20:55 Miscellaneous Medication SC 0.1 mls HS VIRGIL Administration Insulin Glargine 10 units/ 0.1 mls @ 0 mls/hr 08/15/19 09:00 08/17/19 08:48 Miscellaneous Medication SC 0.1 mls QAM VIRGIL Administration Vancomycin HCl 1 gm/ Device 200 mls @ 200 mls/hr 08/16/19 06:00 08/17/19 06: 23 IVPB 200 mls Q24HR VIRGIL Administration Insulin Human Regular 0 units 08/15/19 05:17 08/17/19 11:48 Humulin R SC 2 unit .MILD SLIDING SCALE PRN Administration Mild Correctional Scale Ketotifen Fumarate 0 drop 08/14/19 17:00 08/17/19 08:50 Zaditor 0.025% Ophth Soln EA EYE 1 drop QID VIRGIL Administration Loratadine 10 mg 08/14/19 16:12 08/16/19 20:15 Claritin PER TUBE 10 mg DAILYPRN PRN Administration Allergies Lorazepam 0.5 mg 08/14/19 21:00 08/16/19 20:15 Ativan PER TUBE 0.5 mg HS VIRGIL Administration Lorazepam 0.5 mg 08/17/19 09:39 08/17/19 09:52 Ativan SLOW IVP 08/17/19 12:00 0.5 mg NOW VIRGIL Administration Methylprednisolone Sodium Succinate 20 mg 08/17/19 12:00 08/17/19 11:48 Solu-Medrol IVP 20 mg Q6HR VIRGIL Administration Miscellaneous Medication 1 pkt 08/14/19 21:00 08/17/19 08:48 Phos-Nak PER TUBE 1 pkt BID VIRGIL Administration Scopolamine 1.5 mg 08/17/19 12:00 08/17/19 11:48 Transderm Scop TD 1.5 mg Q3D VIRGIL Administration - Exam General Appearance: ill appearing Eye: PERRL ENT: normocephalic atraumatic Neck: symmetric Heart - other findings: tachycardic Respiratory: rales, rhonchi, tachypneic, wheezes Gastrointestinal: non-distended, normal bowel sounds Extremities - other findings: contractures Hosp A/P - Plan Sepsis d/t UTI and asp PNA UTI - culx --mixed leo staph bactermia -coag neg staph -likely contamination -fw on rept yevgeniy of -- no growth - on vanc + zosyn---vanc level on -- therapeutic. Asp PNA - d/t TF and ongoing risk for aspiration -common precautions and cw TF Tachypnea, wheezing --tx as above, + BD PRN, lasix +PRn Mild hypernatremia -d/t lack of access to free water -free water given as part of Tf -will give additional hyperglycemia DM2 --on scheduled insulin + SSI dispo - pt from [place] - plan to send her back once medically able. code status - DNR -- severe tacypnic dose of ativan supportive care mainly talk to the pulmonary scopalamine patch hospice consult placed.
[2019-08-17] MEDS: Lorazepam 1 MG TAB PER TUBE SCH (20:06)
[2019-08-18] MEDS: Piperacillin/Tazobactam 3.375 GM in Sodium Chloride 0.9% 100 ML IVPB SCH ×3 (05:33→21:21)
[2019-08-18] MEDS: methylPREDNISolone Sod Succ 40 MG VIAL IVP SCH ×4 (05:34→23:25)
[2019-08-18 05:45] LABS: #Lymphocytes 0.4 thou/uL (1.20-3.40); #Monocytes 0.2 thou/uL (0.11-0.59); #Neutrophils 11.7 thou/uL (1.40-6.50); %Eosinophils 0.2 % (0.0-10.0); %Lymphocytes 3.6 % (21.0-51.0); %Monocytes 1.9 % (0.0-10.0); %Neutrophils 94.3 % (42.0-75.0); Hemoglobin 9.1 g/dL (12.0-16.0); Mean Corpuscular HGB CONC 32.5 g/dL (32.0-36.0); Mean Corpuscular Hemoglobin 32.3 pg (27.0-31.0); Mean Corpuscular Volume 99.5 fL (78.0-98.0); Mean Platelet Volume 9.7 fL (7.4-10.4); Platelet Count 360 thou/uL (130-400); RBC Distribution Width 11.7 % (11.5-14.5); Red Blood Cell (RBC) Count 2.82 mill/uL (4.20-5.40); White Blood Cell (WBC) Count 12.4 thou/uL (4.8-10.8)
[2019-08-18 06:07] LABS: Anion Gap 13 mmol/L (10-20); BUN (Urea Nitrogen) 30 mg/dL (9.8-20.1); Calc. Creatinine Clearance 41 mL/min (70-130); Calcium 10.5 mg/dL (7.8-10.44); Carbon Dioxide 27 mmol/L (23-31); Chloride 115 mmol/L (98-107); Estimated GFR-MDRD 66; Glucose 228 mg/dL (83-110); Potassium 4.8 mmol/L (3.5-5.1); Sodium 150 mmol/L (136-145)
[2019-08-18] MEDS: Insulin Regular 300 UNITS/3 ML VIAL SC PRN ×4 (06:09→21:37)
[2019-08-18] MEDS: Vancomycin HCl 1 GM in Premix Bag 1 BAG IVPB SCH (06:09)
[2019-08-18] MEDS: PHOS-NAK 1 PKT PACK PER TUBE SCH ×2 (08:33→21:21)
[2019-08-18] MEDS: Insulin Glargine 10 UNITS in Pre-Filled Syringe 1 EACH SC SCH ×2 (08:33→21:36)
[2019-08-18] MEDS: Cinacalcet HCl 30 MG TAB PER TUBE SCH ×2 (08:33→17:23)
[2019-08-18] MEDS: Ketotifen Fumarate 0.025% Ophth Soln 5 ml Bottle EA EYE SCH ×4 (08:34→21:40)
[2019-08-18 09:54] LABS: Anion Gap 14 mmol/L (10-20); BUN (Urea Nitrogen) 34 mg/dL (9.8-20.1); Calc. Creatinine Clearance 37 mL/min (70-130); Calcium 10.4 mg/dL (7.8-10.44); Carbon Dioxide 22 mmol/L (23-31); Chloride 118 mmol/L (98-107); Estimated GFR-MDRD 58; Glucose 277 mg/dL (83-110); Potassium 5.2 mmol/L (3.5-5.1); Sodium 149 mmol/L (136-145)
--- NOTE | 2019-08-18 12:42 | PDOC.HOSPP ---
- Subjective Encounter Date: 08/18/19 Encounter Time: 08:00 Subjective: Patient seen and examined. No overnight events - Objective Vital Signs & Weight: Vital Signs (12 hours) Temp Pulse Resp BP Pulse Ox 08/18/19 11:58 97.9 F 79 20 110/82 91 L 08/18/19 10:32 55 L 20 97 08/18/19 08:59 97.9 F 63 32 H 117/72 95 08/18/19 06:48 61 18 93 L 08/18/19 03:17 99.1 F 69 32 H 113/65 94 L 08/18/19 02:40 67 18 94 L Weight Admit Weight 104 lb 2 oz Weight 102 lb 4.8 oz I&O: 08/17/19 08/18/19 08/19/19 06:59 06:59 06:59 Intake Total 2670 2500 Output Total 200 Balance 2470 2500 Result Diagrams: 08/18/19 04:58 08/18/19 08:57 Additional Labs: Accuchecks 08/18/19 08/17/19 08/17/19 11:56 20:25 15:53 POC Glucose 286 H 234 H 231 H Hospitalist ROS - Review of Systems ROS unobtainable: due to mental status - Medication Medications: Active Medications Generic Name Dose Route Start Last Admin Trade Name Freq PRN Reason Stop Dose Admin Acetylcysteine 600 mg 08/15/19 18:43 08/16/19 07:35 Mucomyst 10% (Oral Or Inh) INH 600 mg TIDPRN PRN Administration .THICK SECRETIONS Albuterol/Ipratropium 3 ml 08/14/19 16:12 08/15/19 16:36 Duoneb NEB 3 ml Q6H PRN Administration SOB &/or Wheezing Albuterol/Ipratropium 3 ml 08/16/19 02:30 08/18/19 10:32 Duoneb NEB 3 ml [id number] VIRGIL Administration Cholecalciferol 1,000 units 08/15/19 09:00 08/18/19 08:33 Vitamin D3 PER TUBE 1,000 units DAILY VIRGIL Administration Cinacalcet 30 mg 08/14/19 17:00 08/18/19 08:33 Sensipar PER TUBE 30 mg BID-WM VIRGIL Administration Piperacillin Sod/Tazobactam 100 mls @ 200 mls/hr 08/14/19 22:00 08/18/19 05: 33 Sod 3.375 gm/ Sodium Chloride IVPB 100 mls Q8HR VIRGIL Administration Insulin Glargine 10 units/ 0.1 mls @ 0 mls/hr 08/14/19 21:00 08/17/19 20:25 Miscellaneous Medication SC 0.1 mls HS VIRGIL Administration Insulin Glargine 10 units/ 0.1 mls @ 0 mls/hr 08/15/19 09:00 08/18/19 08:33 Miscellaneous Medication SC 0.1 mls QAM VIRGIL Administration Vancomycin HCl 1 gm/ Device 200 mls @ 200 mls/hr 08/16/19 06:00 08/18/19 06: 09 IVPB 200 mls Q24HR VIRGIL Administration Insulin Human Regular 0 units 08/15/19 05:17 08/18/19 12:22 Humulin R SC 4 unit .MILD SLIDING SCALE PRN Administration Mild Correctional Scale Ketotifen Fumarate 0 drop 08/14/19 17:00 08/18/19 12:25 Zaditor 0.025% Ophth Soln EA EYE 1 drop QID VIRGIL Administration Loratadine 10 mg 08/14/19 16:12 08/16/19 20:15 Claritin PER TUBE 10 mg DAILYPRN PRN Administration Allergies Lorazepam 0.5 mg 08/14/19 21:00 08/17/19 20:06 Ativan PER TUBE 0.5 mg HS VIRGIL Administration Methylprednisolone Sodium Succinate 20 mg 08/17/19 12:00 08/18/19 12:22 Solu-Medrol IVP 20 mg Q6HR VIRGIL Administration Miscellaneous Medication 1 pkt 08/14/19 21:00 08/18/19 08:33 Phos-Nak PER TUBE 1 pkt BID VIRGIL Administration Scopolamine 1.5 mg 08/17/19 12:00 08/17/19 11:48 Transderm Scop TD 1.5 mg Q3D VIRGIL Administration - Exam General Appearance: ill appearing General - other findings: poor dentition, Eye: PERRL ENT: normocephalic atraumatic, no oropharyngeal lesions, dry oral mucosa Neck: supple, symmetric, no JVD, no thyromegaly Heart: RRR, no murmur, no gallops, no rubs Respiratory: no wheezes, no rales, no ronchi Gastrointestinal: soft, non-tender, non-distended, normal bowel sounds Gastrointestinal - other findings: PEG tube in place Extremities: no edema Skin: normal turgor, no lesions Musculoskeletal: diffuse muscle atrophy Psychiatric: somnolent Hosp A/P (1) Aspiration pneumonia Code(s): J69.0 - PNEUMONITIS DUE TO INHALATION OF FOOD AND VOMIT Status: Acute Qualifiers: Laterality: bilateral Lung location: lower lobe of lung (2) Acute metabolic encephalopathy Code(s): G93.41 - METABOLIC ENCEPHALOPATHY Status: Acute (3) Hyperosmolality and hypernatremia Code(s): E87.0 - HYPEROSMOLALITY AND HYPERNATREMIA Status: Acute (4) Dysphagia, oropharyngeal Code(s): R13.12 - DYSPHAGIA, OROPHARYNGEAL PHASE Status: Chronic (5) PEG (percutaneous endoscopic gastrostomy) status Code(s): Z93.1 - GASTROSTOMY STATUS Status: Chronic (6) Protein-calorie malnutrition, severe Code(s): E43 - UNSPECIFIED SEVERE PROTEIN-CALORIE MALNUTRITION Status: Chronic (7) Cerebral palsy Code(s): G80.9 - CEREBRAL PALSY, UNSPECIFIED Status: Chronic Qualifiers: Cerebral palsy type: unspecified type Qualified Code(s): G80.9 - Cerebral palsy, unspecified - Plan old records reviewed/req, plan discussed w/ family, continue antibiotics 08/18/19 continue vancomycin and zosyn increase free water via peg tube medication reviewed and continue to provide symptomatic treatment and supportive care discussed with family repeat labs tomorrow prognosis is poor
[2019-08-18] MEDS: Lorazepam 1 MG TAB PER TUBE SCH (21:24)
[2019-08-19] MEDS: Piperacillin/Tazobactam 3.375 GM in Sodium Chloride 0.9% 100 ML IVPB SCH ×3 (04:42→21:00)
[2019-08-19] MEDS: methylPREDNISolone Sod Succ 40 MG VIAL IVP SCH ×4 (04:42→23:33)
[2019-08-19 05:06] LABS: #Eosinphils 0.1 thou/uL (0.0-0.7); #Lymphocytes 0.5 thou/uL (1.20-3.40); #Monocytes 0.6 thou/uL (0.11-0.59); #Neutrophils 13.6 thou/uL (1.40-6.50); %Basophils 0.2 % (0.0-1.0); %Eosinophils 0.6 % (0.0-10.0); %Lymphocytes 3.3 % (21.0-51.0); %Monocytes 4.2 % (0.0-10.0); %Neutrophils 91.7 % (42.0-75.0); Hemoglobin 8.9 g/dL (12.0-16.0); Mean Corpuscular HGB CONC 30.8 g/dL (32.0-36.0); Mean Corpuscular Hemoglobin 30.3 pg (27.0-31.0); Mean Corpuscular Volume 98.5 fL (78.0-98.0); Mean Platelet Volume 10.1 fL (7.4-10.4); Platelet Count 350 thou/uL (130-400); RBC Distribution Width 11.9 % (11.5-14.5); Red Blood Cell (RBC) Count 2.93 mill/uL (4.20-5.40); White Blood Cell (WBC) Count 14.8 thou/uL (4.8-10.8)
[2019-08-19 05:25] LABS: Vancomycin, Trough 22.5 ug/mL
[2019-08-19] MEDS: Vancomycin HCl 1 GM in Premix Bag 1 BAG IVPB SCH (06:25)
[2019-08-19] MEDS: Insulin Regular 300 UNITS/3 ML VIAL SC PRN ×2 (06:28→20:43)
[2019-08-19] MEDS ORDERED: Vancomycin HCl 1 GM in Premix Bag 1 BAG IVPB SCH (06:30)
[2019-08-19 08:38] LABS: Chloride 116 mmol/L (98-107); Potassium 4.7 mmol/L (3.5-5.1)
[2019-08-19 08:39] LABS: Calcium 10.2 mg/dL (7.8-10.44); Glucose 223 mg/dL (83-110); Sodium 150 mmol/L (136-145)
[2019-08-19 08:41] LABS: Anion Gap 18 mmol/L (10-20); Carbon Dioxide 21 mmol/L (23-31)
[2019-08-19 08:43] LABS: Calc. Creatinine Clearance 39 mL/min (70-130); Estimated GFR-MDRD 64
[2019-08-19 08:44] LABS: BUN (Urea Nitrogen) 41 mg/dL (9.8-20.1)
[2019-08-19] MEDS: Cinacalcet HCl 30 MG TAB PER TUBE SCH ×2 (08:54→18:05)
[2019-08-19] MEDS: PHOS-NAK 1 PKT PACK PER TUBE SCH ×2 (08:54→20:35)
[2019-08-19] MEDS: Ketotifen Fumarate 0.025% Ophth Soln 5 ml Bottle EA EYE SCH ×4 (08:54→20:33)
[2019-08-19] MEDS: Insulin Glargine 10 UNITS in Pre-Filled Syringe 1 EACH SC SCH (08:55)
--- NOTE | 2019-08-19 10:13 | PDOC.HOSPP ---
- Subjective Encounter Date: 08/19/19 Encounter Time: 08:30 Subjective: Patient seen and examined. No overnight events - Objective Vital Signs & Weight: Vital Signs (12 hours) Temp Pulse Resp BP Pulse Ox 08/19/19 07:49 96 08/19/19 07:48 54 L 24 H 08/19/19 07:46 97.8 F 64 18 149/79 H 99 08/19/19 03:57 98.7 F 67 20 123/68 95 08/19/19 02:17 74 20 95 08/18/19 23:37 98.7 F 75 24 H 106/55 L 96 Weight Admit Weight 104 lb 2 oz Weight 102 lb 4.8 oz I&O: 08/18/19 08/19/19 08/20/19 06:59 06:59 06:59 Intake Total 2500 1550 1220 Balance 2500 1550 1220 Result Diagrams: 08/19/19 04:53 08/19/19 05:00 Additional Labs: Accuchecks 08/19/19 08/18/19 08/18/19 05:48 20:18 16:39 POC Glucose 208 H 211 H 234 H 08/18/19 11:56 POC Glucose 286 H Hospitalist ROS - Review of Systems ROS unobtainable: due to mental status - Medication Medications: Active Medications Generic Name Dose Route Start Last Admin Trade Name Freq PRN Reason Stop Dose Admin Acetylcysteine 600 mg 08/15/19 18:43 08/16/19 07:35 Mucomyst 10% (Oral Or Inh) INH 600 mg TIDPRN PRN Administration .THICK SECRETIONS Albuterol/Ipratropium 3 ml 08/14/19 16:12 08/15/19 16:36 Duoneb NEB 3 ml Q6H PRN Administration SOB &/or Wheezing Albuterol/Ipratropium 3 ml 08/16/19 02:30 08/19/19 07:48 Duoneb NEB 3 ml [id number] VIRGIL Administration Cholecalciferol 1,000 units 08/15/19 09:00 08/19/19 08:54 Vitamin D3 PER TUBE 1,000 units DAILY VIRGIL Administration Cinacalcet 30 mg 08/14/19 17:00 08/19/19 08:54 Sensipar PER TUBE 30 mg BID-WM VIRGIL Administration Piperacillin Sod/Tazobactam 100 mls @ 200 mls/hr 08/14/19 22:00 08/19/19 04: 42 Sod 3.375 gm/ Sodium Chloride IVPB 100 mls Q8HR VIRGIL Administration Insulin Glargine 10 units/ 0.1 mls @ 0 mls/hr 08/14/19 21:00 08/18/19 21:36 Miscellaneous Medication SC 0.1 mls HS VIRGIL Administration Insulin Glargine 10 units/ 0.1 mls @ 0 mls/hr 08/15/19 09:00 08/19/19 08:55 Miscellaneous Medication SC 0.1 mls QAM VIRGIL Administration Insulin Human Regular 0 units 08/15/19 05:17 08/19/19 06:28 Humulin R SC 3 unit .MILD SLIDING SCALE PRN Administration Mild Correctional Scale Insulin Human Regular 0 units 08/15/19 05:17 08/18/19 21:37 Humulin R SC 2 unit .BEDTIME SLIDING SC PRN Administration Bedtime Correctional Scale Ketotifen Fumarate 0 drop 08/14/19 17:00 08/19/19 08:54 Zaditor 0.025% Ophth Soln EA EYE 1 drop QID VIRGIL Administration Loratadine 10 mg 08/14/19 16:12 08/16/19 20:15 Claritin PER TUBE 10 mg DAILYPRN PRN Administration Allergies Lorazepam 0.5 mg 08/14/19 21:00 08/18/19 21:24 Ativan PER TUBE 0.5 mg HS VIRGIL Administration Methylprednisolone Sodium Succinate 20 mg 08/17/19 12:00 08/19/19 04:42 Solu-Medrol IVP 20 mg Q6HR VIRGIL Administration Miscellaneous Medication 1 pkt 08/14/19 21:00 08/19/19 08:54 Phos-Nak PER TUBE 1 pkt BID VIRGIL Administration Scopolamine 1.5 mg 08/17/19 12:00 08/17/19 11:48 Transderm Scop TD 1.5 mg Q3D VIRGIL Administration - Exam General Appearance: NAD, ill appearing Eye: PERRL, anicteric sclera ENT: normocephalic atraumatic, dry oral mucosa Neck: supple, symmetric, no JVD Heart: RRR, no murmur, no gallops Respiratory: CTAB, no wheezes, no rales Gastrointestinal: soft, non-tender Gastrointestinal - other findings: peg+ Extremities: no edema Hosp A/P (1) Aspiration pneumonia Code(s): J69.0 - PNEUMONITIS DUE TO INHALATION OF FOOD AND VOMIT Status: Acute Qualifiers: Laterality: bilateral Lung location: lower lobe of lung (2) Acute metabolic encephalopathy Code(s): G93.41 - METABOLIC ENCEPHALOPATHY Status: Acute (3) Hyperosmolality and hypernatremia Code(s): E87.0 - HYPEROSMOLALITY AND HYPERNATREMIA Status: Acute (4) Dysphagia, oropharyngeal Code(s): R13.12 - DYSPHAGIA, OROPHARYNGEAL PHASE Status: Chronic (5) PEG (percutaneous endoscopic gastrostomy) status Code(s): Z93.1 - GASTROSTOMY STATUS Status: Chronic (6) Protein-calorie malnutrition, severe Code(s): E43 - UNSPECIFIED SEVERE PROTEIN-CALORIE MALNUTRITION Status: Chronic (7) Cerebral palsy Code(s): G80.9 - CEREBRAL PALSY, UNSPECIFIED Status: Chronic Qualifiers: Cerebral palsy type: unspecified type Qualified Code(s): G80.9 - Cerebral palsy, unspecified - Plan old records reviewed/req, continue antibiotics 08/18/19 continue vancomycin and zosyn increase free water via peg tube medication reviewed and continue to provide symptomatic treatment and supportive care discussed with family repeat labs tomorrow prognosis is poor 08/19/19 ADD HUMILIN r 6 UNIT TID increase glargine 12 unit bid change dex with water 75 ml per hour continue iv antibiotic repeat labs tomorrow prognosis poor hospice candidate
[2019-08-19] MEDS: Insulin Regular 300 UNITS/3 ML VIAL SC SCH ×2 (12:39→18:05)
[2019-08-19] MEDS: Dextrose 5% in Water 1,000 ML IV SCH ×2 (12:46→20:35)
[2019-08-19 19:34] LABS: Vancomycin, Random 13.9 ug/mL (See Comment)
[2019-08-19] MEDS: Lorazepam 1 MG TAB PER TUBE SCH (20:34)
[2019-08-19] MEDS: Insulin Glargine 12 UNITS in Pre-Filled Syringe 1 EACH SC SCH (20:42)
[2019-08-19] MEDS: Vancomycin HCl 750 MG in Sodium Chloride 0.9% 250 ML 250 ML IVPB SCH (23:32)
[2019-08-20] MEDS: methylPREDNISolone Sod Succ 40 MG VIAL IVP SCH ×4 (05:47→23:20)
[2019-08-20] MEDS: Piperacillin/Tazobactam 3.375 GM in Sodium Chloride 0.9% 100 ML IVPB SCH ×3 (05:47→21:37)
[2019-08-20] MEDS: Insulin Regular 300 UNITS/3 ML VIAL SC PRN ×2 (06:07→21:50)
[2019-08-20] MEDS: Insulin Regular 300 UNITS/3 ML VIAL SC SCH ×3 (07:31→17:01)
[2019-08-20] MEDS: PHOS-NAK 1 PKT PACK PER TUBE SCH ×2 (07:33→21:38)
[2019-08-20] MEDS: Cinacalcet HCl 30 MG TAB PER TUBE SCH ×2 (07:33→17:01)
[2019-08-20] MEDS: Ketotifen Fumarate 0.025% Ophth Soln 5 ml Bottle EA EYE SCH ×4 (07:33→21:40)
[2019-08-20] MEDS: Insulin Glargine 12 UNITS in Pre-Filled Syringe 1 EACH SC SCH ×2 (07:56→21:49)
[2019-08-20 09:40] LABS: Anion Gap 16 mmol/L (10-20); BUN (Urea Nitrogen) 35 mg/dL (9.8-20.1); Calc. Creatinine Clearance 44 mL/min (70-130); Calcium 9.5 mg/dL (7.8-10.44); Carbon Dioxide 23 mmol/L (23-31); Chloride 108 mmol/L (98-107); Estimated GFR-MDRD 71; Glucose 226 mg/dL (83-110); Potassium 4.5 mmol/L (3.5-5.1); Sodium 142 mmol/L (136-145)
[2019-08-20] MEDS: Scopolamine 1.5 mg/72 hour Patch TD SCH (11:59)
--- NOTE | 2019-08-20 14:20 | PDOC.HOSPP ---
- Subjective Encounter Date: 08/20/19 Encounter Time: 08:30 Subjective: Patient seen and examined. No overnight events - Objective Vital Signs & Weight: Vital Signs (12 hours) Temp Pulse Resp BP Pulse Ox 08/20/19 14:03 65 24 H 95 08/20/19 11:24 98.7 F 67 16 138/68 98 08/20/19 10:10 71 28 H 96 08/20/19 08:00 98.0 F 70 15 132/67 93 L 08/20/19 06:20 54 L 24 H 96 08/20/19 04:00 97.8 F 60 22 H 118/51 L 94 L 08/20/19 02:26 69 24 H 95 Weight Admit Weight 104 lb 2 oz Weight 102 lb 4.8 oz I&O: 08/19/19 08/20/19 08/21/19 06:59 06:59 06:59 Intake Total 1550 3740 300 Balance 1550 3740 300 Result Diagrams: 08/19/19 04:53 08/20/19 09:08 Additional Labs: Accuchecks 08/20/19 08/20/19 08/19/19 11:13 05:11 20:43 POC Glucose 216 H 243 H 222 H 08/19/19 15:55 POC Glucose 187 H Hospitalist ROS - Review of Systems ROS unobtainable: due to mental status - Medication Medications: Active Medications Generic Name Dose Route Start Last Admin Trade Name Freq PRN Reason Stop Dose Admin Acetylcysteine 600 mg 08/15/19 18:43 08/16/19 07:35 Mucomyst 10% (Oral Or Inh) INH 600 mg TIDPRN PRN Administration .THICK SECRETIONS Albuterol/Ipratropium 3 ml 08/14/19 16:12 08/15/19 16:36 Duoneb NEB 3 ml Q6H PRN Administration SOB &/or Wheezing Albuterol/Ipratropium 3 ml 08/16/19 02:30 08/20/19 14:03 Duoneb NEB 3 ml [id number] VIRGIL Administration Cholecalciferol 1,000 units 08/15/19 09:00 08/20/19 07:33 Vitamin D3 PER TUBE 1,000 units DAILY VIRGIL Administration Cinacalcet 30 mg 08/14/19 17:00 08/20/19 07:33 Sensipar PER TUBE 30 mg BID-WM VIRGIL Administration Piperacillin Sod/Tazobactam 100 mls @ 200 mls/hr 08/14/19 22:00 08/20/19 05: 47 Sod 3.375 gm/ Sodium Chloride IVPB 100 mls Q8HR VIRGIL Administration Dextrose/Water 1,000 mls @ 75 mls/hr 08/19/19 10:15 08/19/19 20:35 D5w IV 1,000 mls .[id number] VIRGIL Administration Insulin Glargine 12 units/ 0.12 mls @ 0 mls/hr 08/19/19 21:00 08/19/19 20:42 Miscellaneous Medication SC 0.12 mls HS VIRGIL Administration Insulin Glargine 12 units/ 0.12 mls @ 0 mls/hr 08/20/19 09:00 08/20/19 07:56 Miscellaneous Medication SC 0.12 mls QAM VIRGIL Administration Vancomycin HCl 750 mg/ Sodium 250 mls @ 250 mls/hr 08/19/19 23:00 08/19/19 23 :32 Chloride IVPB 250 mls 2300 VIRGIL Administration Insulin Human Regular 0 units 08/15/19 05:17 08/20/19 06:07 Humulin R SC 3 unit .MILD SLIDING SCALE PRN Administration Mild Correctional Scale Insulin Human Regular 0 units 08/15/19 05:17 08/19/19 20:43 Humulin R SC 2 unit .BEDTIME SLIDING SC PRN Administration Bedtime Correctional Scale Insulin Human Regular 6 units 08/20/19 07:30 08/20/19 07:31 Humulin R SC 6 unit 0730 VIRGIL Administration Insulin Human Regular 6 units 08/19/19 11:30 08/20/19 11:57 Humulin R SC 6 unit 1130 VIRGIL Administration Insulin Human Regular 6 units 08/19/19 16:30 08/19/19 18:05 Humulin R SC 6 unit 1630 VIRGIL Administration Ketotifen Fumarate 0 drop 08/14/19 17:00 08/20/19 12:57 Zaditor 0.025% Ophth Soln EA EYE Not Given QID VIRGIL Loratadine 10 mg 08/14/19 16:12 08/16/19 20:15 Claritin PER TUBE 10 mg DAILYPRN PRN Administration Allergies Lorazepam 0.5 mg 08/14/19 21:00 08/19/19 20:34 Ativan PER TUBE 0.5 mg HS VIRGIL Administration Methylprednisolone Sodium Succinate 20 mg 08/17/19 12:00 08/20/19 12:00 Solu-Medrol IVP 20 mg Q6HR VIRGIL Administration Miscellaneous Medication 1 pkt 08/14/19 21:00 08/20/19 07:33 Phos-Nak PER TUBE 1 pkt BID VIRGIL Administration Scopolamine 1.5 mg 08/17/19 12:00 08/20/19 11:59 Transderm Scop TD 1.5 mg Q3D VIRGIL Administration - Exam General Appearance: NAD, ill appearing Eye: PERRL, anicteric sclera ENT: normocephalic atraumatic, no oropharyngeal lesions, dry oral mucosa Neck: supple, symmetric, no JVD Heart: RRR, no murmur, no gallops Respiratory: CTAB, no wheezes, no rales Gastrointestinal: soft, non-tender, non-distended Extremities: no cyanosis, no clubbing, no edema Skin: normal turgor Musculoskeletal: normal tone Hosp A/P (1) Aspiration pneumonia Code(s): J69.0 - PNEUMONITIS DUE TO INHALATION OF FOOD AND VOMIT Status: Acute Qualifiers: Laterality: bilateral Lung location: lower lobe of lung (2) Acute metabolic encephalopathy Code(s): G93.41 - METABOLIC ENCEPHALOPATHY Status: Acute (3) Hyperosmolality and hypernatremia Code(s): E87.0 - HYPEROSMOLALITY AND HYPERNATREMIA Status: Acute (4) Dysphagia, oropharyngeal Code(s): R13.12 - DYSPHAGIA, OROPHARYNGEAL PHASE Status: Chronic (5) PEG (percutaneous endoscopic gastrostomy) status Code(s): Z93.1 - GASTROSTOMY STATUS Status: Chronic (6) Protein-calorie malnutrition, severe Code(s): E43 - UNSPECIFIED SEVERE PROTEIN-CALORIE MALNUTRITION Status: Chronic (7) Cerebral palsy Code(s): G80.9 - CEREBRAL PALSY, UNSPECIFIED Status: Chronic Qualifiers: Cerebral palsy type: unspecified type Qualified Code(s): G80.9 - Cerebral palsy, unspecified - Plan old records reviewed/req, continue antibiotics 08/18/19 continue vancomycin and zosyn increase free water via peg tube medication reviewed and continue to provide symptomatic treatment and supportive care discussed with family repeat labs tomorrow prognosis is poor 08/19/19 ADD HUMILIN r 6 UNIT TID increase glargine 12 unit bid change dex with water 75 ml per hour continue iv antibiotic repeat labs tomorrow prognosis poor hospice candidate 08/20/19 will consult director of casework for hosp[facility] arrangement [facility] will consider discharge tomorrow high risk for readmission without hospice repeat labs tomorrow
[2019-08-20] MEDS: Dextrose 5% in Water 1,000 ML IV SCH (21:34)
[2019-08-20] MEDS: Lorazepam 1 MG TAB PER TUBE SCH (21:38)
[2019-08-20] MEDS: Vancomycin HCl 750 MG in Sodium Chloride 0.9% 250 ML 250 ML IVPB SCH (23:19)
[2019-08-21] MEDS: Dextrose 5% in Water 1,000 ML IV SCH (01:37)
[2019-08-21] MEDS: Insulin Regular 300 UNITS/3 ML VIAL SC PRN ×2 (05:08→12:45)
[2019-08-21] MEDS: Piperacillin/Tazobactam 3.375 GM in Sodium Chloride 0.9% 100 ML IVPB SCH ×2 (05:14→14:14)
[2019-08-21] MEDS: methylPREDNISolone Sod Succ 40 MG VIAL IVP SCH (05:15)
[2019-08-21 05:47] LABS: ALT (SGPT) 93 U/L (8-55); AST (SGOT) 41 U/L (5-34); Albumin 2.9 g/dL (3.4-4.8); Alkaline Phosphatase 157 U/L (40-110); Anion Gap 14 mmol/L (10-20); BUN (Urea Nitrogen) 29 mg/dL (9.8-20.1); Bilirubin, Total 0.3 mg/dL (0.2-1.2); Calc. Creatinine Clearance 44 mL/min (70-130); Calcium 9.2 mg/dL (7.8-10.44); Carbon Dioxide 23 mmol/L (23-31); Chloride 104 mmol/L (98-107); Estimated GFR-MDRD 73; Glucose 240 mg/dL (83-110); Potassium 5.8 mmol/L (3.5-5.1); Protein, Total 6.9 g/dL (6.0-8.3); Sodium 135 mmol/L (136-145)
[2019-08-21 07:12] LABS: Mean Corpuscular Hemoglobin 29.8 pg (27.0-31.0); Mean Corpuscular Volume 96.3 fL (78.0-98.0); Mean Platelet Volume 10.2 fL (7.4-10.4); Platelet Count 374 thou/uL (130-400); RBC Distribution Width 12.1 % (11.5-14.5); Red Blood Cell (RBC) Count 3.35 mill/uL (4.20-5.40); White Blood Cell (WBC) Count 12.8 thou/uL (4.8-10.8)
[2019-08-21 07:34] LABS: Band 3 % (5-11); Lymphocytes 9 % (21-51); MDiff Complete? YES; Metamyelocyte 2 % (0-0); Monocytes 3 % (0-10); Myelocyte 1 % (0-0); Neutrophil 81 % (42-75); Platelet Morphology Comment Appears Adequate; RBC Morphology Normal; Reactive Lymphocytes 1 % (0-10)
[2019-08-21] MEDS: Insulin Regular 300 UNITS/3 ML VIAL SC SCH ×2 (07:34→12:38)
[2019-08-21] MEDS: PHOS-NAK 1 PKT PACK PER TUBE SCH (09:27)
[2019-08-21] MEDS: Cinacalcet HCl 30 MG TAB PER TUBE SCH (09:27)
[2019-08-21] MEDS: Insulin Glargine 12 UNITS in Pre-Filled Syringe 1 EACH SC SCH (10:23)
[2019-08-21] MEDS: Ketotifen Fumarate 0.025% Ophth Soln 5 ml Bottle EA EYE SCH ×2 (10:23→12:38)
[2019-08-21 10:40] VITALS: BP 123/67; TEMP 98.8
--- NOTE | 2019-08-21 10:52 | PDOC.HOSPP ---
- Subjective Encounter Date: 08/21/19 Encounter Time: 08:00 non-verbal Subjective: Patient seen and examined. No overnight events - Objective Vital Signs & Weight: Vital Signs (12 hours) Temp Pulse Resp BP Pulse Ox 08/21/19 10:34 98.8 F 78 24 H 123/67 95 08/21/19 10:29 71 20 94 L 08/21/19 07:32 98.1 F 96 20 126/61 92 L 08/21/19 06:31 67 16 95 08/21/19 04:17 97.7 F 70 24 H 131/54 L 95 08/21/19 02:39 70 20 08/21/19 00:06 97.8 F 78 24 H 128/65 94 L Weight Admit Weight 104 lb 2 oz Weight 102 lb 4.8 oz I&O: 08/20/19 08/21/19 08/22/19 06:59 06:59 06:59 Intake Total 3740 1260 1920 Balance 3740 1260 1920 Result Diagrams: 08/21/19 05:46 08/21/19 05:04 Additional Labs: Accuchecks 08/21/19 08/20/19 08/20/19 05:08 21:17 15:46 POC Glucose 242 H 229 H 199 H 08/20/19 11:13 POC Glucose 216 H Hospitalist ROS - Review of Systems ROS unobtainable: due to mental status - Medication Medications: Active Medications Generic Name Dose Route Start Last Admin Trade Name Freq PRN Reason Stop Dose Admin Acetylcysteine 600 mg 08/15/19 18:43 08/16/19 07:35 Mucomyst 10% (Oral Or Inh) INH 600 mg TIDPRN PRN Administration .THICK SECRETIONS Albuterol/Ipratropium 3 ml 08/14/19 16:12 08/15/19 16:36 Duoneb NEB 3 ml Q6H PRN Administration SOB &/or Wheezing Albuterol/Ipratropium 3 ml 08/16/19 02:30 08/21/19 10:29 Duoneb NEB 3 ml [id number] VIRGIL Administration Cholecalciferol 1,000 units 08/15/19 09:00 08/21/19 09:27 Vitamin D3 PER TUBE 1,000 units DAILY VIRGIL Administration Cinacalcet 30 mg 08/14/19 17:00 08/21/19 09:27 Sensipar PER TUBE 30 mg BID-WM VIRGIL Administration Piperacillin Sod/Tazobactam 100 mls @ 200 mls/hr 08/14/19 22:00 08/21/19 05: 14 Sod 3.375 gm/ Sodium Chloride IVPB 100 mls Q8HR VIRGIL Administration Dextrose/Water 1,000 mls @ 75 mls/hr 08/19/19 10:15 08/21/19 01:37 D5w IV Not Given .[id number] VIRGIL Insulin Glargine 12 units/ 0.12 mls @ 0 mls/hr 08/19/19 21:00 08/20/19 21:49 Miscellaneous Medication SC 0.12 mls HS VIRGIL Administration Insulin Glargine 12 units/ 0.12 mls @ 0 mls/hr 08/20/19 09:00 08/21/19 10:23 Miscellaneous Medication SC 0.12 mls QAM VIRGIL Administration Vancomycin HCl 750 mg/ Sodium 250 mls @ 250 mls/hr 08/19/19 23:00 08/20/19 23 :19 Chloride IVPB 250 mls 2300 VIRGIL Administration Insulin Human Regular 0 units 08/15/19 05:17 08/21/19 05:08 Humulin R SC 3 unit .MILD SLIDING SCALE PRN Administration Mild Correctional Scale Insulin Human Regular 0 units 08/15/19 05:17 08/20/19 21:50 Humulin R SC 2 unit .BEDTIME SLIDING SC PRN Administration Bedtime Correctional Scale Insulin Human Regular 6 units 08/20/19 07:30 08/21/19 07:34 Humulin R SC 6 unit 0730 VIRGIL Administration Insulin Human Regular 6 units 08/19/19 11:30 08/20/19 11:57 Humulin R SC 6 unit 1130 VIRGIL Administration Insulin Human Regular 6 units 08/19/19 16:30 08/20/19 17:01 Humulin R SC 6 unit 1630 VIRGIL Administration Ketotifen Fumarate 0 drop 08/14/19 17:00 08/21/19 10:23 Zaditor 0.025% Ophth Soln EA EYE 1 drop QID VIRGIL Administration Loratadine 10 mg 08/14/19 16:12 08/16/19 20:15 Claritin PER TUBE 10 mg DAILYPRN PRN Administration Allergies Lorazepam 0.5 mg 08/14/19 21:00 08/20/19 21:38 Ativan PER TUBE 0.5 mg HS VIRGIL Administration Miscellaneous Medication 1 pkt 08/14/19 21:00 08/21/19 09:27 Phos-Nak PER TUBE 1 pkt BID VIRGIL Administration Scopolamine 1.5 mg 08/17/19 12:00 08/20/19 11:59 Transderm Scop TD 1.5 mg Q3D VIRGIL Administration - Exam General Appearance: ill appearing Eye: PERRL, anicteric sclera ENT: normocephalic atraumatic, dry oral mucosa Neck: supple, symmetric, no JVD Heart: RRR, no murmur, no gallops Respiratory: CTAB Gastrointestinal: soft, non-tender, non-distended Gastrointestinal - other findings: peg+ Hosp A/P (1) Aspiration pneumonia Code(s): J69.0 - PNEUMONITIS DUE TO INHALATION OF FOOD AND VOMIT Status: Acute Qualifiers: Laterality: bilateral Lung location: lower lobe of lung (2) Acute metabolic encephalopathy Code(s): G93.41 - METABOLIC ENCEPHALOPATHY Status: Acute (3) Hyperosmolality and hypernatremia Code(s): E87.0 - HYPEROSMOLALITY AND HYPERNATREMIA Status: Acute (4) Dysphagia, oropharyngeal Code(s): R13.12 - DYSPHAGIA, OROPHARYNGEAL PHASE Status: Chronic (5) PEG (percutaneous endoscopic gastrostomy) status Code(s): Z93.1 - GASTROSTOMY STATUS Status: Chronic (6) Protein-calorie malnutrition, severe Code(s): E43 - UNSPECIFIED SEVERE PROTEIN-CALORIE MALNUTRITION Status: Chronic (7) Cerebral palsy Code(s): G80.9 - CEREBRAL PALSY, UNSPECIFIED Status: Chronic Qualifiers: Cerebral palsy type: unspecified type Qualified Code(s): G80.9 - Cerebral palsy, unspecified - Plan old records reviewed/req, continue antibiotics 08/18/19 continue vancomycin and zosyn increase free water via peg tube medication reviewed and continue to provide symptomatic treatment and supportive care discussed with family repeat labs tomorrow prognosis is poor 08/19/19 ADD HUMILIN r 6 UNIT TID increase glargine 12 unit bid change dex with water 75 ml per hour continue iv antibiotic repeat labs tomorrow prognosis poor hospice candidate 08/20/19 will consult community case manager for hospice arrangement at [facility] will consider discharge tomorrow high risk for readmission without hospice repeat labs tomorrow 08/21/19 will dc to [facility] today see discharge don
--- NOTE | 2019-08-21 12:18 | DIS ---
DATE OF ADMISSION: 08/14/2019 DATE OF DISCHARGE: 08/21/2019 PRIMARY CARE PHYSICIAN: Dr. Deepthi Webb. DISCHARGE DISPOSITION: group home. PRIMARY DISCHARGE DIAGNOSES: 1. Aspiration pneumonia. 2. Metabolic encephalopathy. SECONDARY DISCHARGE DIAGNOSES: 1. Vitamin D deficiency. 2. Severe protein-calorie malnutrition. 3. Primary hyperparathyroidism oropharyngeal dysphagia, cerebral palsy, macrocytic anemia. PRIMARY PROCEDURE/OPERATION: None. RADIOLOGICAL INVESTIGATION: Chest x-ray on admission showed airspace density right lung base consistent with aspiration pneumonia. SIGNIFICANT LABORATORY DATA: WBC 12.8, hemoglobin 10.0, platelet of 374. Sodium 135, potassium 5.8, BUN 29, creatinine 0.77, calcium 9.2. AST 41, ALT 93, alkaline phosphatase 157, albumin 2.9. Urinalysis is suggestive of UTI. Blood culture, negative. Urine culture, negative. DISCHARGE MEDICATIONS: Following are the scheduled medications: 1. Sensipar 30 mg per tube daily. 2. Lantus 10 units subcu b.i.d. 3. Augmentin 500 mg q.8 hourly for 7 days. 4. Vitamin D3 of 1000 units per tube daily. CONTRAINDICATION: None. CODE STATUS: DNR. INPATIENT SAP CRM DEVELOPER: Dr. Ames was following while in hospital. TEST RESULTS PENDING ON DISCHARGE: None. ALLERGIES: NO KNOWN DRUG ALLERGIES. DISCHARGE PLAN: Posthospital, the patient was discharged back to custodial. The patient will need oral care, PEG tube care, aspiration precaution, air mattress and supportive care. The patient will need Palliative Care versus Hospice evaluation at custodial. HOSPITAL COURSE: A 79-year-old female with above-mentioned medical problem, who was admitted by Dr. Nick. Please see her H and P for further details. The patient is nonverbal from her cerebral palsy. The patient was found in her respiratory distress and she was coughing and that is why she was sent from custodial to ER. The patient was found with right lower lobe aspiration pneumonia. She was treated with vancomycin and Zosyn and subsequently we changed to Augmentin on discharge. The patient was also given steroid. Pulmonary group evaluated this patient. The patient was supportively treated with IV fluid, free water and tube feeding. We adjusted her insulin as well. The patient was up to her baseline. This patient has bedbound status and chronically high risk for recurrent admission. The patient will need Hospice evaluation at custodial. Today, the patient is medically stable. We are expecting her potassium will improve with steroid discontinuation. The patient is seen and examined at bedside today. Please see my progress note from today for further detail. Job ID: [id number]
[2019-08-21] MEDS ORDERED: methylPREDNISolone Sod Succ 40 MG VIAL IVP SCH (17:00)
--- NOTE | 2019-08-22 22:33 | PQF ---
ROSE PAL SALIM NOORJIBHAI MD [id number] [facility] [id number] CLINICAL DOCUMENTATION CLARIFICATION FORM: POST DISCHARGE Addendum to original discharge summary date: ____ Late entry note date: __ DATE:08/22/2019 ATTN: Dequan Luis Please exercise your independent, professional judgment in responding to the clarification form. Clinical indicators are provided on the bottom of this form for your review Please check appropriate box(s) to clarify if the following diagnosis has been ruled in or ruled out: Sepsis [ x ] Ruled in diagnosis [ x ] Continue to treat [ ] Resolved [ ] Ruled out diagnosis [ ] Cannot rule out diagnosis [ ] Other diagnosis [ ] Unable to determine In addition, please specify: Present on Admission (POA): [ x ] Yes [ ] No [ ] Unable to determine For continuity of documentation, please document condition throughout progress notes and discharge summary. Thank You. CLINICAL INDICATORS - SIGNS / SYMPTOMS / LABS Vital sign 08/14 BP98/59, Pulse 98, Resp 36 Laboratory Hematology 08/13 WBC 21.3 Laboratory Hematology 08/14 WBC 12.8 Laboratory Hematology 08/13 Lactic Acid 3.6 H&P p1 08/14 Dr Nick PEG tube dependent brought by family for ongoing cough for the last 3 days and worsening with emesis on Wednesday H&P p2 08/14 Dr Nick Presenting with Sepsis secondary to UTI as well as Aspiration Pneumonia RISK FACTORS H&P p1 08/14 79-year-old Male H&P p2 08/14 Sepsis H&P p2 08/14 Aspiration Pneumonia H&P p2 08/14 UTI TREATMENTS SEP 16 IV Ampicillin Sodium SEP 16 IV Vancomycin SEP 16 IV fluid bolus H&P p2 08/14 Cultured obtained H&P p2 08/14 Routine labs monitoring Respiratory Panel 08/14 Oxygen 2L via nasal cannula (This form is maintained as a part of the permanent medical record) 2014 [employer] All Rights Reserved [employer]
== END 2019-08-21 15:26 | DRG 871 ==
LOC: ERS 19:59 → SURG B 23:59
PROVIDERS: ADMIT Family Medicine; ATTEND Family Medicine
DX: A41.9 Sepsis, unspecified organism (principal); J69.0 Pneumonitis due to inhalation of food and vomit; G93.41 Metabolic encephalopathy; E43 Unspecified severe protein-calorie malnutrition; Z68.1 Body mass index [BMI] 19.9 or less, adult; N39.0 Urinary tract infection, site not specified; E87.0 Hyperosmolality and hypernatremia; J96.10 Chronic respiratory failure, unspecified whether with hypoxia or hypercapnia; Z66 Do not resuscitate; E21.0 Primary hyperparathyroidism; R13.12 Dysphagia, oropharyngeal phase; G80.9 Cerebral palsy, unspecified; D53.9 Nutritional anemia, unspecified; E55.9 Vitamin D deficiency, unspecified; E11.65 Type 2 diabetes mellitus with hyperglycemia; Z93.1 Gastrostomy status; Z79.899 Other long term (current) drug therapy; Z79.4 Long term (current) use of insulin
CPT/HCPCS: 36415; 36416; 51701; 71045; 80048; 80053; 80202; 81003; 81015; 82550; 83605; 83880; 84443; 85025; 87040; 87086; 94640; 94667; 94668; 96365; 96367; A4353; J0295; J1815; J1940; J2060; J2543; J2920; J3370; J3490; J7050; J7608; J7620

== ENCOUNTER 2023-09-21 10:57 | Emergency (ER) | payer MEDICARE, OTHER | END 2023-09-21 14:35 | disposition home or self-care (01) | LOC: ERS 10:57 | DX: Z43.1 Encounter for attention to gastrostomy (principal); D64.9 Anemia, unspecified; E21.3 Hyperparathyroidism, unspecified; E78.00 Pure hypercholesterolemia, unspecified; E11.9 Type 2 diabetes mellitus without complications; G80.9 Cerebral palsy, unspecified; F79 Unspecified intellectual disabilities; E55.9 Vitamin D deficiency, unspecified; Z55.6 Problems related to health literacy; Z75.3 Unavailability and inaccessibility of health-care facilities | CPT/HCPCS: 43762; 74018 ==

== ENCOUNTER 2023-12-21 22:46 | Inpatient (IN) | payer MEDICARE, MEDICAID ==
[2023-12-22 00:39] LABS: Bilirubin Negative (Negative); Blood, Urine 2+ (Negative); CAUTI Indications for Culture Pelvic or flank pain; Clarity Clear (Clear); Glucose, Urine (Dipstick) Normal (Negative); Ketone, Urine Negative (Negative); Leukocyte Negative Leu/uL (Negative); Nitrite 1+ (Negative); Protein, Urine (Dipstick) Negative (Neg-Trace); Specific Gravity, Urine 1.013 (1.002-1.036); Squamous Epithelial 0-3 HPF (0-3); Urobilinogen Normal mg/dL (Less than 2)
[2023-12-22 00:42] LABS: Bacteria/HPF 1+ HPF (None Seen)
[2023-12-22 00:43] LABS: Urine Culture Reflex No No
[2023-12-22 01:05] LABS: #Basophils Less than 0.03 10x3/uL (0.0-0.2); #Eosinphils Less than 0.03 10x3/uL (0.0-0.7); %Basophils 0.1 % (0.0-1.0); %Eosinophils 0.2 % (0.0-10.0); %Lymphocytes 10.6 % (21.0-51.0); %Neutrophils 82.9 % (42.0-75.0); Hematocrit 43.8 % (36.0-47.0); Hemoglobin 13.6 g/dL (12.0-16.0); Mean Corpuscular HGB CONC 31.1 g/dL (32.0-36.0); Mean Corpuscular Hemoglobin 33.4 pg (27.0-31.0); Mean Corpuscular Volume 107.6 fL (78.0-98.0); Platelet Count 72 10x3/uL (130-400); RBC Distribution Width 13.8 % (11.5-14.5); Red Blood Cell (RBC) Count 4.07 mill/uL (4.20-5.40)
[2023-12-22 01:30] LABS: ALT (SGPT) 31 U/L (8-55); AST (SGOT) 59 U/L (5-34); Alkaline Phosphatase 79 U/L (40-110); Anion Gap 21 mmol/L (10-20); BUN (Urea Nitrogen) 83 mg/dL (9.8-20.1); Bilirubin, Total 1.2 mg/dL (0.2-1.2); Calc. Creatinine Clearance 0 mL/min (70-130); Calcium 10.6 mg/dL (7.8-10.44); Carbon Dioxide 25 mmol/L (23-31); Chloride 125 mmol/L (98-107); Estimated GFR 44; Globulin 3.2 g/dL (2.4-3.5); Glucose 201 mg/dL (83-110); Magnesium 2.5 mg/dL (1.6-2.6); Potassium 3.3 mmol/L (3.5-5.1); Protein, Total 6.2 g/dL (5.8-8.1); Sodium 168 mmol/L (136-145)
[2023-12-22] MEDS ORDERED: Glucagon 1 MG/ML KIT IM PRN (01:42)
[2023-12-22] MEDS ORDERED: Dextrose 5% in Water 1,000 ML IV PRN (01:42)
[2023-12-22] MEDS ORDERED: Dextrose 50% Abboject 50 ML SYRINGE SLOW IVP PRN (01:42)
[2023-12-22] MEDS ORDERED: Ondansetron ODT 4 MG TAB PO PRN (01:50)
[2023-12-22] MEDS ORDERED: Acetaminophen 325 MG TAB PO PRN (01:50)
[2023-12-22] MEDS ORDERED: Ondansetron PF 4 MG/2 ML Vial IVP PRN (01:50)
[2023-12-22] MEDS ORDERED: Acetaminophen 650 MG Suppository PR PRN (01:50)
[2023-12-22] MEDS ORDERED: cefTRIAXone (ROCEPHIN) 1 GM VIAL ONE (01:53)
[2023-12-22] MEDS ORDERED: Electrolyte Replacement Protocol 1 EACH FS SCH (03:00)
[2023-12-22] MEDS: Dextrose 5% in Water 1,000 ML IV SCH (03:10)
[2023-12-22] MEDS: Potassium Chloride 20 MEQ in Premix 1 BAG IVPB SCH (03:12)
[2023-12-22 03:49] VITALS: BMI 19.0
[2023-12-22] MEDS: HumaLOG 300 UNITS/3 ML VIAL SC PRN ×2 (05:14→17:13)
[2023-12-22 09:16] VITALS: BMI 19.0
[2023-12-22 11:09] LABS: Anion Gap 17 mmol/L (10-20); BUN (Urea Nitrogen) 68 mg/dL (9.8-20.1); Calc. Creatinine Clearance 27 mL/min (70-130); Carbon Dioxide 23 mmol/L (23-31); Chloride 118 mmol/L (98-107); Estimated GFR 50; Glucose 294 mg/dL (83-110); Potassium 3.7 mmol/L (3.5-5.1); Sodium 154 mmol/L (136-145)
[2023-12-22] MEDS ORDERED: Hyoscyamine SL 0.125 MG TAB PER TUBE PRN (15:18)
[2023-12-22] MEDS ORDERED: Polyethylene Glycol 3350 17 GM Packet PER TUBE PRN (15:18)
[2023-12-22] MEDS ORDERED: Loratadine 10 MG TAB PER TUBE PRN ×2 (15:18→16:45)
[2023-12-22] MEDS ORDERED: Ketotifen 0.035% Ophth Soln 5 ml Bottle EA EYE SCH ×2 (17:00→21:00)
[2023-12-22] MEDS: Artificial Tear Sol 15 ML BOT EA EYE SCH (17:13)
[2023-12-22 18:24] LABS: Bacteria/HPF 2+ HPF (None Seen); Bilirubin Negative (Negative); Blood, Urine 3+ (Negative); Glucose, Urine (Dipstick) Greater than 1000 mg/dL (Negative); Ketone, Urine Negative (Negative); Leukocyte 75 Leu/uL (Negative); Nitrite Negative (Negative); Protein, Urine (Dipstick) 30 mg/dL (Neg-Trace); RBC/HPF 0-3 HPF (0-3); Specific Gravity, Urine 1.018 (1.002-1.036); Squamous Epithelial 0-3 HPF (0-3); Urobilinogen Normal mg/dL (Less than 2)
[2023-12-22 18:34] LABS: Clarity Hazy (Clear)
[2023-12-22 20:26] VITALS: TEMP 97.3
[2023-12-23] MEDS: cefTRIAXone\\ROCEPHIN 1 GM in Sodium Chloride 0.9% 100 ML IVPB SCH (02:08)
[2023-12-23 05:55] LABS: Anion Gap 18 mmol/L (10-20); BUN (Urea Nitrogen) 51 mg/dL (9.8-20.1); Calc. Creatinine Clearance 30 mL/min (70-130); Calcium 9.8 mg/dL (7.8-10.44); Carbon Dioxide 21 mmol/L (23-31); Chloride 108 mmol/L (98-107); Estimated GFR 59; Glucose 279 mg/dL (83-110); Potassium 3.2 mmol/L (3.5-5.1); Sodium 144 mmol/L (136-145)
[2023-12-23 06:21] LABS: #Basophils Less than 0.03 10x3/uL (0.0-0.2); %Basophils 0.1 % (0.0-1.0); %Eosinophils 0.5 % (0.0-10.0); %Lymphocytes 8.5 % (21.0-51.0); %Monocytes 8.1 % (0.0-10.0); %Neutrophils 82.3 % (42.0-75.0); Hematocrit 40.7 % (36.0-47.0); Mean Corpuscular HGB CONC 31.9 g/dL (32.0-36.0); Mean Corpuscular Hemoglobin 33.5 pg (27.0-31.0); Mean Corpuscular Volume 104.9 fL (78.0-98.0); Platelet Count 71 10x3/uL (130-400); RBC Distribution Width 12.7 % (11.5-14.5); Red Blood Cell (RBC) Count 3.88 mill/uL (4.20-5.40)
[2023-12-23] MEDS: Potassium Bicarbonate/Cit Ac 20 MEQ TAB PER TUBE SCH (06:22)
[2023-12-23] MEDS: Polyethylene Glycol 3350 17 GM Packet PER TUBE SCH (09:07)
[2023-12-23] MEDS: Simethicone Chewable 80 MG TAB PER TUBE SCH (09:07)
[2023-12-23] MEDS: Zinc Sulfate 220 MG CAP PER TUBE SCH (09:07)
[2023-12-23 12:06] VITALS: BP 90/50
[2023-12-23] MEDS ORDERED: Estradiol 0.01% Vaginal Cream 42.5 gm Tube VAG SCH (21:00)
[2023-12-24] MEDS ORDERED: Polyethylene Glycol 3350 17 GM Packet PER TUBE SCH (09:00)
== END 2023-12-23 14:48 | disposition home or self-care (01) | DRG 683 ==
LOC: ERS 22:46 → 2NO 12-22 01:47
PROVIDERS: ADMIT Physician Assistant; ATTEND Family Medicine
DX: N17.9 Acute kidney failure, unspecified (principal); E87.0 Hyperosmolality and hypernatremia; N39.0 Urinary tract infection, site not specified; E87.6 Hypokalemia; G80.9 Cerebral palsy, unspecified; E11.9 Type 2 diabetes mellitus without complications; Z66 Do not resuscitate; E86.0 Dehydration; E78.5 Hyperlipidemia, unspecified; Z79.899 Other long term (current) drug therapy; Z98.49 Cataract extraction status, unspecified eye; Z98.890 Other specified postprocedural states; Z79.4 Long term (current) use of insulin
CPT/HCPCS: 36415; 36416; 51701; 71045; 80048; 81001; 83735; 85025; 85027; 87077; 87086; 87186; 93005; 96365; J0696; J1815; J3480; J3490; J7070